=== PATIENT | female | born 1980 | race Caucasian/White ===

== ENCOUNTER → 2017-04-01 13:34 | Outpatient (CLI) | payer OTHER, SELFPAY ==
--- NOTE | 2017-04-01 | MR_ITS ---
MR cervical spine wo con 3-D myelogram image set. Included Ordering Physician: Sammy Lam Patient Age: 36 years: Female HISTORY: Neck pain. Back pain. Low back pain many years. HISTORY of lupus. Possible MS. TECHNIQUE: Sagittal STIR, T1, T2, axial T1 and T2. On 1.5T Siemens wide bore MRI. 3-D MR myelogram image set obtained & performed on MRI workstation. Additional sagittal thin section T2 weighted dataset obtained from this latter acquisition as well (---76 CPT) COMPARISON :No previous C-spine studies Findings cranial cervical junction is satisfactory C2/3, C3/4: Both disc intact & unremarkable neural foramen widely patent C4/5.Disc well-maintained. scant central disc bulge/very minor scant disc protrusion which slightly indents thecal sac and may just touch the anterior margin of cervical cord. Minimal feature of doubtful significance C5-C6. Disc intact. Scant central disc prominence. Not significant C6/7. Disc intact. C7/T1 disc intact Tiny perineural cysts the right foramen at C7/T1 T1/T2 T2/33 disc intact. T3/4. Perhaps scant disc protrusion to the right as seen on sagittal views only . Sagittal/slice 9 . The cervical cord is normal in caliber and signal. No abnormal signal foci. Adequate volume underlying osseous spinal canal. The thyroid upper normal in size bilateral which clinical correlation. 3-D MR myelogram image set. But no significant findings. No significant epidural indentation. The exiting nerve roots appear satisfactory. IMPRESSION: 1. Cervical spine overall intact. With no prominent findings, only very minor observations No disc herniation or significant appearing protrusion. No remarkable spondylosis C-spine The cervical cord appears normal. No lesions evident 2. Only note some minor, Scant central protrusion at C4/5, which slight indents thecal sac at midline. & Of doubtful clinical significance 3. T3/4,. Tiny spur or protrusion to the right mildly indenting thecal sac. It Further discussed subsequent T-spine MRI report . 4. Thyroid appears mildly enlarged bilateral., compatible with previous ultrasound thyroid 2017
--- NOTE | 2017-04-01 13:37 | MR_ITS ---
MR thoracic spine wo con Ordering Physician: Sammy Lam Patient Age: 36 years: Female HISTORY: ITS.REASON: WHITE MATTER DISEASE TECHNIQUE: Sagittal T1-T2 STIR and axial T1-T2 imaging on 1.5 T MR. . COMPARISON :Previous chest film lateral view utilized. From 09/04/2016. FINDINGS The vertebral bodies are intact with no compression fracture nor lesion evident. Only very subtle slight superior endplate concavity T4 which negligible more likely congenital feature rather than reflection of minor old trauma. . The disc spaces are fairly well-maintained throughout the thoracic spine. No disc herniation... Generous volume underlying osseous thoracic spinal canal. The thoracic cord appears normal in caliber and signal There are 2 axial image sets: . The upper axial image set from T3-T7.Demonstrates only very minor scant minimal degenerative posterior endplate hypertrophic ridging evident to the right at T3/4, T 4/5.-Barely evident and actually better seen on the MRI C-spine Only Question scant posterior spurring left paracentral at T 5/6 Thelower axial image set from T8 through L1 reveals no degenerative disc changes nor spondylosis nor disc protrusion. Mild facet hypertrophy T10-11 very slightly indents posterior thecal sac. Mild degenerative facet changes other levels throughout lowert T-spine noted less evident but noted . subtle inhomogeneity within the CSF posterior to the upper cord most likely reflects pulsation artifact. IMPRESSION 1. Thoracic cord appears normal , with no findings of MS. 2. Vertebral bodies are intact. Disc spaces are well hydrated well-maintained 3. No prominent findings. Very minor Minor observations T-spine as in text: ... Mild developing facet hypertrophy lower T-spine most evident at T10-11 ,-only very slightly indents posterior aspect thecal sac at this level ... Suggestion scant very early posterior hypertrophic ridging,/ trace spurring to the right at T3/4, T4/5. Negligible/Barely appreciable
== END ==
PROVIDERS: Family Provider Nurse Practitioner Family; PCP Physician Assistant; Visit Provider Psychiatry & Neurology Neurology
DX: R09.82 Postnasal drip (principal)
CPT/HCPCS: 72141; 72146

== ENCOUNTER → 2017-04-17 14:45 | Outpatient (CLI) | payer OTHER, SELFPAY ==
[2017-04-17 15:55] LABS: Basophils % 0.6 % (0.1-2.0); Eosinophils # 0.1 K/mm3 (0.0-0.4); Eosinophils % 1.3 % (0.1-12.0); Hematocrit 48.9 % (37.0-47.0); Hemoglobin 16.1 g/dL (12.2-16.2); Lymphocytes # 2.2 K/mm3 (0.7-4.5); Lymphocytes % 34.3 K/mm3 (10-50); Mean Corpuscular HGB Conc 32.8 g/dL (31.8-35.4); Mean Corpuscular Hemoglobin 31.2 pg (27.0-31.2); Mean Corpuscular Volume 95.2 fl (81-99); Mean Platelet Volume 7.8 fl (7.4-10.4); Monocytes # 0.3 K/mm3 (0.1-1.0); Monocytes % 3.9 % (1.7-9.3); Neutrophils # 3.8 K/mm3 (1.8-7.8); Neutrophils % 59.8 % (37.0-80.0); Platelet Count 326 K/mm3 (142-424); Red Blood Count 5.14 M/mm3 (4.20-5.40); Red Cell Distribution Width 12.4 % (11.5-17.5); White Blood Count 6.3 K/mm3 (4.8-10.8)
[2017-04-17 16:48] LABS: Activated Partial Thrombo Time 26.4 seconds (23.6-34.0); INR 1.02 (0.9-1.1)
[2017-04-17 16:59] LABS: Alanine Aminotransferase 27 U/L (12-78); Albumin/Globulin Ratio 1.2 (1.1-1.8); Alkaline Phosphatase 169 U/L (46-116); Anion Gap 15.3 mEq/L (5-15); Aspartate Amino Transferase 12 U/L (15-37); Bilirubin,Total 0.3 mg/dL (0.2-1.0); Blood Urea Nitrogen 8 mg/dL (7-18); Calcium 8.9 mg/dL (8.5-10.1); Carbon Dioxide 26 mmol/L (21.0-32.0); Chloride 104 mmol/L (98-107); Chol/HDL Ratio 4.3 (1-3.5); Cholesterol 205 mg/dL (140-200); Creatinine,Serum 0.67 mg/dL (0.55-1.02); Estimated Glomerular Filt Rate 101 ml/min (>60); GFR (African American) 122 ML/MIN (>60); Globulin 3.4 gm/dl (1.3-3.2); Glucose 92 mg/dL (74-106); HDL Cholesterol 48 mg/dL (29-89); LDL Cholesterol 141 mg/dL (0-130); Potassium 4.3 mmoL/L (3.5-5.1); Sodium 141 mmol/L (136-145); T4 (Thyroxine) 10.1 ug/dl (4.7-13.3); Total Protein,Serum 7.4 gm/dL (6.4-8.2); Triglycerides 78 mg/dL (30-200); VLDL Cholesterol 16 mg/dL (0-40)
[2017-04-19 07:19] LABS: Hep A Ab, IgM Negative (Negative); Hepatitis B Core Antibody IgM Negative (Negative); Hepatitis B Surface Antigen Negative (Negative)
[2017-04-19 08:24] LABS: Immunoglobulin A, Qn 339 mg/dL (87-352); Immunoglobulin G, Qn 951 mg/dL (700-1600)
[2017-04-19 17:08] LABS: Hepatitis C Antibody <0.1 s/co ratio (0.0-0.9); Immunoglobulin M, Qn 41 mg/dL (26-217)
[2017-04-19 17:08] LABS: HIV Screen 4th Generation wRfx Non Reactive (Non Reactive)
[2017-04-19 17:10] LABS: Vitamin D 25 Hydroxy 7.7 ng/mL (30.0-100.0)
== END ==
PROVIDERS: Psychiatry & Neurology Neurology; PCP Physician Assistant; Visit Provider Physician Assistant
DX: R90.82 White matter disease, unspecified (principal)
CPT/HCPCS: 36415; 80053; 80061; 80074; 82652; 82784; 84436; 84443; 85025; 85610; 85730; 86703; G0432

== ENCOUNTER → 2017-07-26 13:23 | Outpatient (REF) | payer OTHER, SELFPAY ==
[2017-07-29 13:26] LABS: Amphetamine/Metha Screen,Urine Positive ng/mL (<1000); Barbiturates Screen,Urine Negative ng/mL (<200); Benzodiazepines Screen,Urine Negative ng/mL (200); Cannabinoid Screen,Urine Negative ng/mL (<50); Cocaine Screen,Urine Negative ng/g (<300); Methadone Screen,Urine Negative ng/mL (<300); Opiate Screen,Urine Positive ng/mL (<300); Phencyclidine Screen,Urine Negative ng/mL (<25)
== END ==
LOC: LAB 13:23
PROVIDERS: Visit Provider Nurse Practitioner Family
DX: Z79.899 Other long term (current) drug therapy (principal)
CPT/HCPCS: 80305

== ENCOUNTER → 2017-10-10 15:00 | Outpatient (CLI) | payer OTHER, SELFPAY ==
--- NOTE | 2017-10-10 15:02 | US_ITS ---
US thyroid HISTORY: Follow-up thyroid nodule/Baldev thyroiditis ITS.REASON: 6 mth f/u ORDERING PHYSICIAN: NADIR Nguyen PATIENT AGE: 37 years Comparison: 02/20/2017 FINDINGS: The right lobe of the thyroid gland measures 3.6 x 1.2 x 2.4 cm. Multiple small cysts are present. A 1.2 cm heterogeneous nodule with small cyst is noted in the lower pole on the right similar to the previous exam. The left lobe is 4 x 1.3 x 2.5 cm containing multiple small cysts with heterogeneous echogenicity. IMPRESSION: Overall stable appearance of the thyroid gland with swish cheese appearance and ill-defined 1 cm nodular lesion on the right with multiple small cysts. No new or progressive abnormalities evident
== END ==
PROVIDERS: Family Provider Nurse Practitioner Family; PCP Physician Assistant; Visit Provider Physician Assistant
DX: E06.3 Autoimmune thyroiditis (principal)
CPT/HCPCS: 76536

== ENCOUNTER → 2017-10-23 17:33 | Outpatient (CLI) | payer OTHER, SELFPAY ==
--- NOTE | 2017-10-23 17:35 | XR_ITS ---
EXAM: XR lumbar spine min 4V HISTORY: ITS.REASON: Low back pain ORDERING PHYSICIAN: NADIR Nguyen PATIENT AGE: 37 years COMPARISON: None FINDINGS: Normal alignment. Minimal lumbar curvature convex right No fracture or dislocation. No lytic or blastic change. No significant degenerative change. The disc spaces are preserved. There are gas-filled loops of small and large bowel nonspecific IMPRESSION: No acute finding
--- NOTE | 2017-10-23 17:35 | XR_ITS ---
XR pelvis 1-2V HISTORY: Back pain, bilateral hip pain ITS.REASON: Back pain and bilateral hip pain ORDERING PHYSICIAN: NADIR Nguyen PATIENT AGE: 37 years Comparison: None FINDINGS: No fracture or dislocation is evident. No significant degenerative change. No lytic or blastic change. The SI joints have an unremarkable appearance. Unremarkable soft tissues. IMPRESSION: Negative pelvis.
== END ==
PROVIDERS: PCP Physician Assistant; Visit Provider Physician Assistant
DX: M54.5 Low back pain (principal); M25.551 Pain in right hip; M25.552 Pain in left hip
CPT/HCPCS: 72110; 72170

== ENCOUNTER → 2017-12-03 13:57 | Outpatient (REF) | payer OTHER, SELFPAY ==
[2017-12-03 18:58] LABS: Amphetamine/Metha Screen,Urine Positive ng/mL (<1000); Barbiturates Screen,Urine Negative ng/mL (<200); Benzodiazepines Screen,Urine Negative ng/mL (<200); Cannabinoid Screen,Urine Negative ng/mL (<50); Cocaine Screen,Urine Negative ng/mL (<300); Methadone Screen,Urine Negative ng/mL (<300); Opiate Screen,Urine Positive ng/mL (<300); Phencyclidine Screen,Urine Negative ng/mL (<25)
== END ==
LOC: LAB 13:57
PROVIDERS: Visit Provider Physician Assistant
DX: F90.9 Attention-deficit hyperactivity disorder, unspecified type (principal)
CPT/HCPCS: 80305

== ENCOUNTER → 2018-01-14 18:01 | Outpatient (CLI) | payer OTHER, SELFPAY ==
[2018-01-14 19:51] LABS: Free Thyroxine Index 2.9 ug/dL (5.93-13.13); T4 (Thyroxine) 8.6 ug/dl (4.7-13.3); Thyroid Stimulating Hormone 1.38 uIU/ml (0.358-3.740); Triiodothryronine (T3) Uptake 34 % (31-39)
[2018-01-16 09:18] LABS: Iron 73 ug/dL (27-159); UIBC 239 ug/dL (131-425)
[2018-01-17 09:26] LABS: Iron Saturation 23 % (15-55); Vitamin B12 224 pg/mL (232-1245); Vitamin D 25 Hydroxy 8.9 ng/mL (30.0-100.0)
== END ==
PROVIDERS: Visit Provider Physician Assistant
DX: Z86.39 Personal history of other endocrine, nutritional and metabolic disease (principal); E55.9 Vitamin D deficiency, unspecified; D64.9 Anemia, unspecified
CPT/HCPCS: 82607; 82652; 83540; 83550; 84436; 84443; 84479

== ENCOUNTER → 2018-01-21 14:57 | Outpatient (CLI) | payer OTHER, SELFPAY ==
[2018-01-24 07:02] LABS: Parathyroid Hormone Intact 25 pg/mL (15-65)
== END ==
PROVIDERS: Visit Provider Physician Assistant
DX: E55.9 Vitamin D deficiency, unspecified (principal); Z86.39 Personal history of other endocrine, nutritional and metabolic disease
CPT/HCPCS: 36415; 83970

== ENCOUNTER → 2018-04-23 16:00 | Outpatient (CLI) | payer OTHER, SELFPAY | PROVIDERS: Visit Provider Physician Assistant | DX: R14.0 Abdominal distension (gaseous) (principal) | CPT/HCPCS: 87338 ==

== ENCOUNTER → 2018-04-30 22:00 | Outpatient (CLI) | payer OTHER, SELFPAY ==
[2018-05-05 14:19] LABS: H. pylori Stool Ag, EIA Negative (Negative)
== END ==
PROVIDERS: Visit Provider Physician Assistant
DX: R14.0 Abdominal distension (gaseous) (principal)
CPT/HCPCS: 87338

== ENCOUNTER → 2018-05-26 15:12 | Outpatient (CLI) | payer OTHER, SELFPAY ==
[2018-05-27 09:16] LABS: Basophils # 0.1 K/mm3 (0-0.2); Eosinophils % 0.7 % (0.1-12.0); Hematocrit 44.1 % (37.0-47.0); Hemoglobin 14.3 g/dL (12.2-16.2); Lymphocytes # 2.3 K/mm3 (0.7-4.5); Lymphocytes % 41.5 % (10-50); Mean Corpuscular HGB Conc 32.4 g/dL (31.8-35.4); Mean Corpuscular Hemoglobin 31.9 pg (27.0-31.2); Mean Corpuscular Volume 98.2 fl (81-99); Mean Platelet Volume 8.7 fl (7.4-10.4); Monocytes # 0.3 K/mm3 (0.1-1.0); Monocytes % 4.8 % (1.7-9.3); Neutrophils # 2.9 K/mm3 (1.8-7.8); Platelet Count 369 K/mm3 (142-424); Red Blood Count 4.49 M/mm3 (4.20-5.40); Red Cell Distribution Width 12.6 % (11.5-17.5); White Blood Count 5.6 K/mm3 (4.8-10.8)
[2018-05-27 09:36] LABS: Alanine Aminotransferase 19 U/L (12-78); Albumin Level 3.7 gm/dL (3.4-5.0); Alkaline Phosphatase 177 U/L (46-116); Anion Gap 13.9 mEq/L (5-15); Aspartate Amino Transferase 11 U/L (15-37); Bilirubin,Total 0.2 mg/dL (0.2-1.0); Blood Urea Nitrogen 7 mg/dL (7-18); Calcium 8.9 mg/dL (8.5-10.1); Carbon Dioxide 25 mmol/L (21.0-32.0); Chloride 104 mmol/L (98-107); Chol/HDL Ratio 4.5 (1-3.5); Cholesterol 191 mg/dL (140-200); Creatinine,Serum 0.65 mg/dL (0.55-1.02); Estimated Glomerular Filt Rate 104 ml/min (>60); GFR (African American) 126 ML/MIN (>60); Globulin 3.6 gm/dl (1.3-3.2); Glucose 73 mg/dL (74-106); HDL Cholesterol 42 mg/dL (29-89); LDL Cholesterol 136 mg/dL (0-130); Potassium 3.9 mmoL/L (3.5-5.1); Sodium 139 mmol/L (136-145); T4 (Thyroxine) 8.6 ug/dl (4.7-13.3); Thyroid Stimulating Hormone 0.99 uIU/ml (0.358-3.740); Total Protein,Serum 7.3 gm/dL (6.4-8.2); Triglycerides 67 mg/dL (30-200); VLDL Cholesterol 13 mg/dL (0-40)
[2018-05-28 07:55] LABS: Vitamin D 25 Hydroxy 5.7 ng/mL (30.0-100.0)
[2018-05-28 08:46] LABS: Vitamin B12 392 pg/mL (232-1245)
== END ==
PROVIDERS: Visit Provider Physician Assistant
DX: E03.9 Hypothyroidism, unspecified (principal); E78.5 Hyperlipidemia, unspecified; D64.9 Anemia, unspecified; E55.9 Vitamin D deficiency, unspecified
CPT/HCPCS: 80053; 80061; 82607; 82652; 84436; 84443; 85025

== ENCOUNTER → 2018-10-01 13:52 | Outpatient (CLI) | payer OTHER, SELFPAY ==
--- NOTE | 2018-10-01 13:55 | XR_ITS ---
XR pelvis min 3V HISTORY: Fall with injury and pain ITS.REASON: Pelvis pain ORDERING PHYSICIAN: NADIR Hale PATIENT AGE: 38 years Comparison: None FINDINGS: No fracture or dislocation is evident. No significant degenerative change. No lytic or blastic change. The SI joints have an unremarkable appearance. Unremarkable soft tissues. There is a punctate left mid pelvic phleboliths. IMPRESSION: No acute process. Pelvic phleboliths.
--- NOTE | 2018-10-01 13:55 | US_ITS ---
US thyroid HISTORY: ITS.REASON: Baldev's ORDERING PHYSICIAN: NADIR Hale PATIENT AGE: 38 years Comparison: 10/10/2017. FINDINGS: Right lobe is 1.6 x 4.1 x 2.5 cm. Left lobe is 1.4 x 4.3 x 1.8 cm. AP diameter of the isthmus is 0.1 cm. The somewhat coarse diffuse heterogeneous appearance of the thyroid parenchyma remains stable. Again seen is the mid and lower pole right thyroid lobe very subtle ill-defined nodular area. This is mixed solid and cystic and the solid component is isoechoic compared to the thyroid tissue. Maximal AP and transverse diameter is 1.6 x 1.5 cm and the length is 1.5 cm. The scattered small punctate anechoic foci in the left lower lobe are stable. Impression: Heterogeneous thyroid parenchyma is stable. The right thyroid lobe nodule is TI-RAD category 2. This is not suspicious at this time and biopsy is not recommended. Suggest follow-up in 6 months to one year.
--- NOTE | 2018-10-01 13:55 | XR_ITS ---
XR knee LT 4V HISTORY: ITS.REASON: Left knee pain ORDERING PHYSICIAN: NADIR Hale PATIENT AGE: 38 years COMPARISON: None FINDINGS: No fracture or dislocation. No lytic or blastic change. Normal mineralization. No significant arthritic changes evident. No other significant findings IMPRESSION: Negative Knee
== END ==
PROVIDERS: PCP Physician Assistant; Visit Provider Physician Assistant
DX: M25.551 Pain in right hip (principal); M25.552 Pain in left hip; M25.562 Pain in left knee; E06.3 Autoimmune thyroiditis
CPT/HCPCS: 72190; 73564; 76536

== ENCOUNTER → 2018-11-13 14:18 | Outpatient (CLI) | payer OTHER, SELFPAY ==
--- NOTE | 2018-11-13 14:21 | XR_ITS ---
PROCEDURE: XR FOOT WT BEARING RT 3V CLINICAL INDICATION: pain Pain, numbness, burning COMPARISON: No exams were available for comparison FINDINGS: No fracture or dislocation. No lytic or blastic change. There is normal mineralization. The joint spaces are well-preserved. No significant degenerative/arthritic changes. No erosive changes evident. Other findings:None. IMPRESSION: Negative right foot Dictated by: Carlitos Tony MD 11/13/2018 16:42 Electronically signed by Carlitos Tony MD in [facility] 11/13/2018 16:42
--- NOTE | 2018-11-13 14:21 | XR_ITS ---
PROCEDURE: XR FOOT WT BEARING LT 3V CLINICAL INDICATION: pain COMPARISON: No exams were available for comparison FINDINGS: No fracture or dislocation. No lytic or blastic change. There is normal mineralization. The joint spaces are well-preserved. No significant degenerative/arthritic changes. No erosive changes evident. Other findings:None. IMPRESSION: Negative left foot Dictated by: Carlitos Tony MD 11/13/2018 16:42 Electronically signed by Carlitos Tony MD in [facility] 11/13/2018 16:42
== END ==
PROVIDERS: PCP Physician Assistant; Visit Provider Podiatrist
DX: M79.672 Pain in left foot (principal); M79.671 Pain in right foot
CPT/HCPCS: 73630

== ENCOUNTER → 2018-12-01 13:05 | Outpatient (CLI) | payer OTHER, SELFPAY ==
--- NOTE | 2018-12-01 13:06 | US_ITS ---
APPROVED REPORT Exam Type: Lower Extremity Segmental Pressures Embossing Machine Tender: Valeria Simms CRT Indications Claudication: Current Smoker Risk Factors Current Smoker Pressures/Indices Right Indices Left Indices Brachial 115.00 mmHg Brachial 123.00 mmHg Low Thigh 125.00 mmHg 1.02 Low Thigh 106.00 mmHg 0.86 Calf 132.00 mmHg 1.07 Calf 111.00 mmHg 0.90 Ankle(PT) 113.00 mmHg 0.92 Ankle(PT) 112.00 mmHg 0.91 Ankle(DP) 120.00 mmHg 0.98 Ankle(DP) 112.00 mmHg 0.91 Digit 123.00 mmHg 1.00 Digit 85.00 mmHg 0.69 Conclusion No evidence significant arterial disease throughout the right and left lower extremities as evidenced by normal resting PVR waveforms and normal resting indices. Electronically signed by : Carlitos Tony MD 12/02/2018 15:35:14
== END ==
PROVIDERS: PCP Physician Assistant; Visit Provider Physician Assistant
DX: R09.89 Other specified symptoms and signs involving the circulatory and respiratory systems (principal)
CPT/HCPCS: 93923

== ENCOUNTER → 2019-02-12 16:06 | Outpatient (CLI) | payer MEDICARE, MEDICAID, SELFPAY | PROVIDERS: PCP Physician Assistant; Visit Provider Physician Assistant | DX: R00.0 Tachycardia, unspecified (principal) | CPT/HCPCS: 93225; 93226 ==

== ENCOUNTER → 2019-03-02 16:36 | Outpatient (CLI) | payer MEDICARE, MEDICAID, SELFPAY ==
[2019-03-02 17:45] LABS: Amphetamine/Metha Screen,Urine Positive ng/mL (<1000); Barbiturates Screen,Urine Negative ng/mL (<200); Benzodiazepines Screen,Urine Negative ng/mL (<200); Cannabinoid Screen,Urine Negative ng/mL (<50); Cocaine Screen,Urine Negative ng/mL (<300); Methadone Screen,Urine Negative ng/mL (<300); Opiate Screen,Urine Positive ng/mL (<300); Phencyclidine Screen,Urine Negative ng/mL (<25)
== END ==
PROVIDERS: Visit Provider Physician Assistant
DX: Z79.899 Other long term (current) drug therapy (principal)
CPT/HCPCS: 80305

== ENCOUNTER → 2019-04-01 17:18 | Outpatient (CLI) | payer MEDICARE, MEDICAID, SELFPAY ==
[2019-04-01 18:30] LABS: Basophils % 0.5 % (0.1-2.0); Eosinophils % 0.3 % (0.1-12.0); Hematocrit 45.8 % (37.0-47.0); Lymphocytes # 2.7 K/mm3 (0.7-4.5); Mean Corpuscular HGB Conc 32.8 g/dL (31.8-35.4); Mean Corpuscular Hemoglobin 31.2 pg (27.0-31.2); Mean Corpuscular Volume 95.1 fl (81-99); Mean Platelet Volume 8.1 fl (7.4-10.4); Monocytes # 0.3 K/mm3 (0.1-1.0); Monocytes % 5.4 % (1.7-9.3); Neutrophils # 2.8 K/mm3 (1.8-7.8); Neutrophils % 47.8 % (37.0-80.0); Platelet Count 370 K/mm3 (142-424); Red Blood Count 4.82 M/mm3 (4.20-5.40); Red Cell Distribution Width 12.4 % (11.5-17.5); White Blood Count 5.8 K/mm3 (4.8-10.8)
[2019-04-01 20:07] LABS: Alanine Aminotransferase 10 U/L (12-78); Albumin Level 4.3 gm/dL (3.4-5.0); Albumin/Globulin Ratio 1.4 (1.1-1.8); Alkaline Phosphatase 126 U/L (46-116); Anion Gap 16.3 mEq/L (5-15); Aspartate Amino Transferase 12 U/L (15-37); Bilirubin,Total 0.5 mg/dL (0.2-1.0); Blood Urea Nitrogen 5 mg/dL (7-18); Calcium 8.9 mg/dL (8.5-10.1); Carbon Dioxide 28 mmol/L (21.0-32.0); Chloride 101 mmol/L (98-107); Chol/HDL Ratio 3.9 (1-3.5); Cholesterol 154 mg/dL (140-200); Creatinine,Serum 0.76 mg/dL (0.55-1.02); Estimated Glomerular Filt Rate 86 ml/min (>60); GFR (African American) 104 ML/MIN (>60); Globulin 3.1 gm/dl (1.3-3.2); Glucose 80 mg/dL (74-106); HDL Cholesterol 40 mg/dL (29-89); LDL Cholesterol 104 mg/dL (0-130); Potassium 3.3 mmoL/L (3.5-5.1); Sodium 142 mmol/L (136-145); T4 (Thyroxine) 10.4 ug/dl (4.7-13.3); Thyroid Stimulating Hormone 0.66 uIU/ml (0.358-3.740); Total Protein,Serum 7.4 gm/dL (6.4-8.2); Triglycerides 51 mg/dL (30-200); VLDL Cholesterol 10 mg/dL (0-40)
[2019-04-03 17:19] LABS: Peripheral Smear Review Scanned Result
[2019-04-04 09:12] LABS: Vitamin B12 326 pg/mL (232-1245); Vitamin D 25 Hydroxy 9.1 ng/mL (30.0-100.0)
== END ==
PROVIDERS: Visit Provider Physician Assistant
DX: R00.0 Tachycardia, unspecified (principal); R41.3 Other amnesia; R59.1 Generalized enlarged lymph nodes; E78.5 Hyperlipidemia, unspecified; E55.9 Vitamin D deficiency, unspecified
CPT/HCPCS: 80053; 80061; 82607; 82652; 84436; 84443; 85025

== ENCOUNTER → 2019-04-22 14:51 | Outpatient (CLI) | payer MEDICARE, MEDICAID, SELFPAY ==
--- NOTE | 2019-04-22 14:55 | CT_ITS ---
PROCEDURE: CT FACIAL BONES WO CON CLINICAL HISTORY: Jaw displacement, bone loss, RA The jaw shifting to the right, headaches, sinus infections the COMPARISON: HDWO CT HEAD W/O CONTRAST from 01/16/2016 BRW/O MRI-BRAIN W/O from 07/10/2016 TECHNIQUE: Axial images obtained with sagittal and coronal reformats. All CT scans at the facility use one or more dose reduction, viz: automated exposure control, ma/kV adjustment per patient size (including targeted exams where dose is matched to indication, i.e. head), or iterative reconstruction technique. FINDINGS: There is minimal mucosal thickening within the left ethmoid sinus. The maxillary sinuses are unremarkable. There is minimal mucosal thickening of the sphenoid sinus on the right. Unremarkable frontal sinuses. The ostiomeatal complexes are patent. There is very minimal rightward nasal septal deviation anteriorly and leftward nasal septal deviation posteriorly. A small well-circumscribed cystic areas noted in the right supraorbital rim laterally measuring 3 mm. There is fluid present in the right mastoid sinus laterally and inferiorly. There is no evidence scutal erosion or middle ear opacification. There is a well-circumscribed lucent lesion involving the right maxillary alveolar ridge medially which measures 12 mm transverse and 12 mm cephalad caudad which may represent a periapical cyst/radicular cyst with thinning of the bony wall anteriorly and inferiorly. The patient is edentulous. There is mild prominence of the adenoids and of the tonsils with multiple calcified tonsillar crypts. There are few small lymph nodes present within the neck bilaterally measuring up to 1.6 by 0.9 cm in the left jugular region. There is mild bilateral TMJ arthropathy. IMPRESSION: 1. Right mastoid sinus disease 2. Well-circumscribed lytic lesion of the right maxillary alveolar ridge medially and may represent a periapical/radicular cyst 3. Mild prominence of the adenoids and tonsils with multiple calcified tonsillar crypts and scattered small cervical lymph nodes Dictated by: Carlitos Tony MD 04/23/2019 19:23 Electronically signed by Carlitos Tony MD in [facility] 04/23/2019 19:23
--- NOTE | 2019-04-22 15:11 | MR_ITS ---
PROCEDURE: MR HEAD/BRAIN WO CON CLINICAL INDICATION: Memory loss Short-term memory loss COMPARISON: BRW/O MRI-BRAIN W/O from 07/10/2016 TECHNIQUE: Routine multiplanar multi echo sequences are performed without gadolinium enhancement. FINDINGS: No evidence of acute infarction. No midline shift or mass effect. No acute intracranial hemorrhage. The cerebellopontine angles, cerebellum, and brainstem are unremarkable. There are a few T2 white matter hyperintensities once again noted which do not appear significantly changed. These are nonspecific as previously mentioned. The pituitary, optic chiasm, corpus callosum, and craniocervical junction have an unremarkable appearance. There is opacification of the right mastoid air cells. No sinus air-fluid level is evident. Incidentally noted is a cystic lesion in the medial aspect of the maxilla at the alveolar ridge which may represent a periapical cyst as described in the facial CT report of the same day. IMPRESSION: 1. No acute intracranial findings. 2. Overall no significant change in the scant T2 white matter hyperintensities which are nonspecific 3. Right mastoid sinus disease. 4. Right maxillary periapical cyst Dictated by: Carlitos Tony MD 04/23/2019 19:10 Electronically signed by Carlitos Tony MD in [facility] 04/23/2019 19:10
== END ==
PROVIDERS: PCP Physician Assistant; Visit Provider Physician Assistant
DX: M26.12 Other jaw asymmetry (principal); M27.9 Disease of jaws, unspecified; R41.3 Other amnesia; R51 Headache
CPT/HCPCS: 70486; 70551

== ENCOUNTER → 2019-04-28 13:53 | Outpatient (POV) | payer MEDICARE, MEDICAID, SELFPAY | PROVIDERS: PCP Dermatology; Visit Provider Dermatology | DX: Z00.00 Encounter for general adult medical examination without abnormal findings (principal) ==

== ENCOUNTER → 2019-04-29 17:40 | Outpatient (CLI) | payer MEDICARE, MEDICAID, SELFPAY ==
[2019-04-29 22:43] LABS: Amphetamine/Metha Screen,Urine Positive ng/ml (<1000)
[2019-04-29 22:46] LABS: Barbiturates Screen,Urine Negative ng/ml (<200); Benzodiazepines Screen,Urine Negative ng/ml (<200)
[2019-04-29 22:47] LABS: Cannabinoid Screen,Urine Negative ng/ml (<50)
[2019-04-29 22:48] LABS: Cocaine Screen,Urine Negative ng/ml (<300); Methadone Screen,Urine Negative ng/ml (<300)
[2019-04-29 22:49] LABS: Opiate Screen,Urine Positive ng/ml (<300)
[2019-04-29 22:50] LABS: Phencyclidine Screen,Urine Negative ng/ml (<25)
== END ==
PROVIDERS: Visit Provider Physician Assistant
DX: Z79.899 Other long term (current) drug therapy (principal)
CPT/HCPCS: 80305

== ENCOUNTER → 2019-05-05 13:42 | Outpatient (CLI) | payer MEDICARE, MEDICAID, SELFPAY ==
--- NOTE | 2019-05-05 13:48 | XR_ITS ---
PROCEDURE: XR DEXA AXIAL SKELETON CLINICAL HISTORY: RA, bone loss COMPARISON: No exams were available for comparison FINDINGS: Right femoral density is 0.817 grams/centimeters sq with a T-score of -1.0 and a Z-score of -0.9. Left femoral density is 0.776 grams/centimeters sq with a T-score of -1 4. L1-L4 density is 0.701 grams/centimeters sq with a T-score -3.1 consistent with osteoporosis. IMPRESSION: Osteoporosis with high fracture risk. Treatment advised. Suggest follow-up exam 1 year. Dictated by: Carlitos Tony MD 05/05/2019 14:44 Electronically signed by Carlitos Tony MD in [facility] 05/05/2019 14:44
== END ==
PROVIDERS: PCP Physician Assistant; Visit Provider Physician Assistant
DX: M06.9 Rheumatoid arthritis, unspecified (principal); M27.9 Disease of jaws, unspecified; M81.0 Age-related osteoporosis without current pathological fracture
CPT/HCPCS: 77080

== ENCOUNTER → 2019-08-17 15:17 | Outpatient (CLI) | payer MEDICARE, MEDICAID, SELFPAY | PROVIDERS: Visit Provider Physician Assistant | DX: N89.8 Other specified noninflammatory disorders of vagina (principal) | CPT/HCPCS: 87210 ==

== ENCOUNTER → 2019-09-16 13:09 | Outpatient (CLI) | payer MEDICARE, MEDICAID, SELFPAY ==
--- NOTE | 2019-09-16 | CA_ITS ---
APPROVED REPORT Right Upper Extremity Venous Study for DVT. Grommet Man: Taylor Winchester RT(R) Indications Upper Extremity Pain: Right Patient states the knot in upper right arm appeared a couple of days ago. No known trauma. Risk Factors Oral Contraceptive Patient has Lupus, rheumatoid arthritis Vein Imaging IJV (R): Normal phasic flow is seen. Normal flow, augmentation and compression is seen. No evidence of Deep Vein Thrombosis. No abnormalities are demonstrated. SCV (R): Normal phasic flow is seen. Normal flow, augmentation and compression is seen. No evidence of Deep Vein Thrombosis. No abnormalities are demonstrated. Axillary (R): Normal phasic flow is seen. Normal flow, augmentation and compression is seen. No evidence of Deep Vein Thrombosis. No abnormalities are demonstrated. Brachial (R): Normal phasic flow is seen. Normal flow, augmentation and compression is seen. No evidence of Deep Vein Thrombosis. No abnormalities are demonstrated. Basilic (R): Compressible Cephalic (R): Compressible Radial (R): Compressible Ulnar (R): Compressible Findings Duplex evaluation of the right upper extremity demonstrates no evidence of DVT. Conclusion Duplex evaluation of the right upper extremity demonstrates no evidence of DVT. Electronically signed by : Carlitos Tony MD 09/17/2019 17:26:32
--- NOTE | 2019-09-16 13:09 | CA_ITS ---
APPROVED REPORT Design Editor: CT Laterality: Bilateral Indications: calcification carotid Doppler Spectral Velocity Analysis ECA (R) 98.80/27.70 cm/s ECA (L) 98.20/20.20 cm/s dICA (R) 102.50/41.90 cm/s dICA (L) 109.20/53.10 cm/s Karina (R) 95.80/47.10 cm/s Karina (L) 93.50/43.40 cm/s pICA (R) 83.10/32.90 cm/s pICA (L) 95.00/41.90 cm/s dCCA (R) 101.10/35.60 cm/s dCCA (L) 124.20/45.30 cm/s pCCA (R) 119.40/27.90 cm/s pCCA (L) 131.00/36.60 cm/s Vert (R) 56.70/26.70 cm/s Vert (L) 62.10/22.40 cm/s ICA/CCA 1.00 ICA/CCA 0.90 Findings Duplex evaluation demonstrates stenosis of the right proximal internal carotid artery <20% with PSV <140 cm/sec, EDV <100 cm/sec, and IC/CC Ratio <4.0. Duplex evaluation demonstrates stenosis of the left proximal internal carotid artery <20% with PSV <140 cm/sec, EDV <100 cm/sec, and IC/CC Ratio <4.0. Duplex evaluation demonstrates antegrade flow of the bilateral Vertebral Arteries. Conclusion No increased velocities to suggest hemodynamically significant stenosis in either internal carotid artery. Electronically signed by : Carlitos Tony MD 09/17/2019 17:30:15
--- NOTE | 2019-09-16 13:09 | US_ITS ---
PROCEDURE: US THYROID CLINICAL INDICATION: f/u abnl thyroid US Baldev's thyroiditis COMPARISON: THY US thyroid from 10/01/2018 FINDINGS: Right lobe: 4.4 x 1.7 x 2 cm. There is diffuse heterogeneous echogenicity with multiple small cystic areas. No discrete nodule apparent Left lobe: 4.3 x 1.4 x 2 cm. Scattered small cystic areas Isthmus: Unremarkable Additional findings: IMPRESSION: Enlarged thyroid gland with [place]ong [place]onger cheese appearance consistent with Baldev's thyroiditis not significantly changed Dictated by: Carlitos Tony MD 09/16/2019 16:56 Electronically signed by Carlitos Tony MD in [facility] 09/16/2019 16:56
== END ==
PROVIDERS: PCP Physician Assistant; Visit Provider Physician Assistant
DX: Z86.39 Personal history of other endocrine, nutritional and metabolic disease (principal); I65.23 Occlusion and stenosis of bilateral carotid arteries; M79.601 Pain in right arm
CPT/HCPCS: 76536; 93880; 93971

== ENCOUNTER 2019-11-23 15:30 | Emergency (ER) | payer MEDICARE, MEDICAID, SELFPAY ==
[2019-11-23 15:47] VITALS: BP 120/82; PULSE 89; RESP 22; O2SAT 98; BMI 20.2
--- NOTE | 2019-11-23 16:17 | HMH.EDUTC ---
[facility] [place] Disposition Clinical Impression: Otitis media Qualifiers: Otitis media type: suppurative Chronicity: acute Laterality: bilateral Recurrence: non-recurrent Spontaneous tympanic membrane rupture: without spontaneous rupture Qualified Code(s): H66.003 - Acute suppurative otitis media without spontaneous rupture of ear drum, bilateral Sinusitis Qualifiers: Sinusitis location: unspecified location Chronicity: acute Recurrence: non-recurrent Qualified Code(s): J01.90 - Acute sinusitis, unspecified Disposition: Home, Self-Care Condition on Discharge: Good Instructions: Sinusitis, DI for Sinusitis Additional Instructions: Drink plenty of fluids. Take tylenol or ibuprofen for pain or fever. Take the medications as directed. Follow up with your regular doctor. GO TO THE ER FOR ANY WORSENING SYMPTOMS Prescriptions: Cefdinir [Omnicef 300mg Capsule] 300 mg PO BID #20 cap Transmission Status: Received by [facility] Referrals: Eliana Rodarte PA [Primary Care Provider] - Time of Disposition: 16:32 Medical Decision Making - Medical Records Medical records reviewed: No: I reviewed the patient's medical records. - Deng Inquiry Pt receiving controlled substance: No Vital Signs: 11/23/19 15:47 11/23/19 16:24 Temperature 98.4 F Temperature Source Oral Pulse Rate 89 Pulse Rate [Left Brachial] 89 Respiratory Rate 22 22 Blood Pressure 120/82 Blood Pressure [Left Arm] 120/82 Blood Pressure Mean [Left Arm] 94 Blood Pressure Source [Left Arm] Automatic Cuff Blood Pressure Position [Left Arm] Sitting 02 Sat by Pulse Oximetry 98 Oxygen Delivery Method Room Air Room Air Orders (Tests/Meds): ED MEDICATIONS Discontinued Medications Generic Name Dose Route Start Last Admin Trade Name Freq PRN Reason Stop Dose Admin Methylprednisolone Sodium Succinate 125 mg 11/23/19 16:13 11/23/19 16:17 Solu-Medrol 125mg/2ml Vial IM 11/23/19 16:14 125 mg ONCE ONE Administration [facility] [place] HPI - General Stated complaint: R ear pain Time Seen by Provider: 11/23/19 15:45 Mode of Arrival: Ambulatory Source of Information: Patient Limitations: No Limitations Description of Symptoms (Recalled from Triage Doc. by RN): PATIENT C/O POSSIBLE SINUS INFECTION. C/O RIGHT EAR AND NECK PAIN, A BUZZING SOUND IN RIGHT EAR, AND LEFT EYE PAIN HEENT Symptoms (Recalled from RN notes): Yes Resp Symptoms (Recalled from RN notes): No Skin Symptoms (Recalled from RN notes): No MS Symptoms (Recalled from RN notes): No Functional Status (Recalled from RN notes): WNL - History of Present Illness Provider Complaint: She c/o right ear pain and sinus congestion for the past 1 week. She has a history of getting sinus infections and ear infections fairly frequently, especially in the fall. She denies any documented fever, but she has been chilling. - Related Data Home Medications Medication Instructions Recorded Confirmed indomethacin 50 mg capsule 50 mg PO QHS cap 03/20/17 09/16/19 meclizine 25 mg tablet 25 mg PO TID PRN tab 03/20/17 09/16/19 tizanidine 4 mg capsule 4 mg PO TID PRN 07/26/17 09/16/19 pregabalin 25 mg capsule 25 mg PO QHS cap 12/03/17 09/16/19 oxycodone-acetaminophen 10 mg-325 PO 04/01/19 09/16/19 mg tablet Previous Rx's Medication Instructions Recorded albuterol sulfate 90 mcg/actuation 2 puff INHALATION Q4-6H PRN #6.7 g 05/15/17 aerosol inhaler ibuprofen 200 mg capsule 800 mg PO Q6H #120 cap 06/25/18 ketorolac 0.4 % eye drops 1 drp OPHTHALMIC BID 30 Days #5 ml 06/25/18 sumatriptan succinate 100 mg tablet See Rx Instructions PO .COMPLEX #9 08/18/18 tab atorvastatin 10 mg tablet 10 mg PO QHS #90 tab 12/31/18 ranitidine HCl 300 mg tablet 300 mg PO DAILY PRN #14 tab 12/31/18 nystatin 100,000 unit/mL oral 5 ml BUCCAL QID 7 Days #140 ml 02/18/19 suspension cholecalciferol (vitamin D3) 25 1,000 unit PO DAILY #90 cap 04/06/19 mcg (1,000 unit) capsule ergo
[2019-11-23 16:24] VITALS: BP 120/82; PULSE 89; RESP 22; TEMP 36.9; O2SAT 98
== END 2019-11-23 16:42 | disposition home or self-care (01) ==
PROVIDERS: Emergency Provider Nurse Practitioner Family; PCP Physician Assistant
DX: J01.90 Acute sinusitis, unspecified (principal); H66.003 Acute suppurative otitis media without spontaneous rupture of ear drum, bilateral; M79.7 Fibromyalgia; E78.5 Hyperlipidemia, unspecified; G43.709 Chronic migraine without aura, not intractable, without status migrainosus; Z87.891 Personal history of nicotine dependence; Z79.899 Other long term (current) drug therapy; Z88.0 Allergy status to penicillin; Z88.8 Allergy status to other drugs, medicaments and biological substances
CPT/HCPCS: 96372; 99201

== ENCOUNTER 2019-12-03 15:00 | Outpatient (RCR) | payer MEDICARE, MEDICAID, SELFPAY ==
--- NOTE | 2019-08-31 16:03 | HMH.PTOPEV ---
PT Outpatient Evaluation Rehab PT Outpatient Evaluation Start: 08/31/19 15:06 Freq: Status: Active Protocol: Document 08/31/19 15:28 ESSENCE (Rec: 08/31/19 16:03 ESSENCE [id number]) Electronically Signed By Dallin Lehman, PT 08/31/19 15:28 Outpatient Therapy Subjective History Subjective History Pt reports h/o chronic LBP with most recent exacerbation over the last ~2-3 months. Pt reports midline LBP and lower mid back pain as well. Pt also reports PHM of lupus, MS, and RA, 'all of which I'm sure contribute to my current back pain'. With these aforementioned diagnoses pt also reports neck pain, L sided weakness, and balance issues. Chief Complaint Pain,Weakness Symptom Type Ache,Sharp,Dull Symptoms Relieved By Rest/Positioning,Heat Symptoms Aggravated By Sitting,Standing,Walking Prior Functional Limitations Standing,Sitting,Walking Current Functional Limitations Housework,Sleeping,Standing, Sitting,Walking,Balance Symptom Description Constant but Variable Level of pain today (0-10) 7 Pain scale - at its best (0-10) 7 Pain scale - at its worst (0-10) 9 Lumbopelvic Eval Posture Thoracic Spine Posture Standing Position Neutral Lumbar Spine Posture Standing Position Increased Lordosis Assistive device Assistive Devices None / NA Gait Observation General Gait Pattern Observation Antalgic Gait Palapation tenderness bilateral thoracic spinal tenderness Yes: 3/4 lumbar spinal tenderness Yes: 3/4 paraspinal tenderness Yes: 3/4 Lumbar/Sacral Palpation Findings Tenderness Accessory Movement T-spine Vertebrae Accessory Movements Central P/A [place] that Elicit Symptoms T10 bilateral T11 bilateral T12 bilateral L-spine Vertebrae Accessory Movements Central P/A [place] that Elicit Symptoms L2 bilateral L3 bilateral L4 bilateral L5 bilateral Range of Motion Lumbar Spine Active Flexion Range of 0-50 Motion (degrees) Lumbar Spine Active Extension Range of 0-15 Motion (degrees) Left Lumbar Spine Lateral Flexion Active 0-20 Range of Motion (degrees) Right Lumbar Spine Lateral Flexion 0-20 Active Range of Motion (degrees) Lumbar Spine ROM Limitations
--- NOTE | 2019-10-01 15:37 | HMH.RHREAS ---
Rehab Reassessment Rehab OP Re-assessment Start: 10/01/19 15:20 Freq: Status: Active Protocol: Document 10/01/19 15:20 ESSENCE (Rec: 10/01/19 15:37 ESSENCE [id number]) Electronically Signed By Dallin Lehman, PT 10/01/19 15:20 Rehab Re-assessment Subjective Subjective Pt reports 5-6/10 systemic/ global pain on VAS, 'good days and bad days', and feels ~20% better overall functionally since I Eval Objective Objective Notes AROM: L-SPINE FLX 0-55, EXT 0- 12, B SB 0-20 MMT: B HI FLX 4/5, B KNEE EXT 4+/5, B HS 4+/5, B DF 5/5 TTP: THORACIC AND LUMBAR SP'S 3/4, B THORACIC AND LUMBAR PARA MM 3/4 TINETTI:27 Assessment Progress Assessment Progressing as Expected Assessment Notes PT W/IMPROVED ROM, STRENGTH, TTP, AND BALANCE Patient goals met STG'S 09/15 LTG'S 04/22 Goals Not Met STG'S 03/18, LTG'S 12/20 Plan Plan PT TO CONT. W/SKILLED P.T. TO MAKE FURTHER IMPROVEMENTS IN ROM, STRENGTH, TTP, AND GAIT/ BALANCE TO ALLOW FOR OPTIMAL FUNCTION Frequency of Therapy 1-2X/WK Duration of therapy 3-4WKS Time and Billing Re-Eval Time 15 Re-Eval Billing Units 0 PHYSICIAN CERTIFICATION: I certify the specified therapy services for Marcelina Vidales are required, authorized, and reviewed every 30 days.
--- NOTE | 2019-11-06 16:28 | HMH.RHREAS ---
Rehab Reassessment Rehab OP Re-assessment Start: 10/01/19 15:20 Freq: Status: Active Protocol: Document 11/06/19 16:17 ESSENCE (Rec: 11/06/19 16:28 ESSENCE [id number]) Electronically Signed By Dallin Lehman, PT 11/06/19 16:17 Rehab Re-assessment Subjective Subjective Pt reports 2-4/10 systemic/ global pain on VAS, 'good days and bad days', and feels ~40% better overall functionally since I Eval Objective Objective Notes AROM: L-SPINE FLX 0-90, EXT 0- 15, B SB 0-25 MMT: B HIP FLX 4+/5, B KNEE EXT 4+/5, B HS 4+/5, B DF 5/5 TTP: THORACIC AND LUMBAR SP'S 1-2/4, B THORACIC AND LUMBAR PARA MM 1-2/4 TINETTI:WFL Assessment Progress Assessment Progressing as Expected Assessment Notes PT W/IMPROVED ROM, STRENGTH, AND TTP, WELL GAIT Patient goals met STG'S 09/15 LTG'S 08/20 Goals Not Met STG'S 03/18, LTG'S 08/20 Plan Plan PT TO CONT. W/SKILLED P.T. TO MAKE FURTHER IMPROVEMENTS IN ROM, STRENGTH, TTP, AND GAIT/ BALANCE TO ALLOW FOR OPTIMAL FUNCTION Frequency of Therapy 1-2X/WK Duration of therapy 3-4WKS Time and Billing Re-Eval Time 15 Re-Eval Billing Units 0 PHYSICIAN CERTIFICATION: I certify the specified therapy services for Marcelina Vidales are required, authorized, and reviewed every 30 days.
== END 2019-12-03 15:05 | disposition home or self-care (01) ==
LOC: PT 15:00
PROVIDERS: PCP Physician Assistant; Visit Provider Physician Assistant
DX: M06.9 Rheumatoid arthritis, unspecified (principal)
CPT/HCPCS: 97010; 97014; 97110; 97112; 97140; 97163; 97164; G0283

== ENCOUNTER 2020-03-21 16:28 | Emergency (ER) | payer MEDICARE, MEDICAID, SELFPAY ==
[2020-03-21 17:25] VITALS: PULSE 127; RESP 20; TEMP 37.1; O2SAT 100; BMI 21.9
--- NOTE | 2020-03-21 17:54 | HMH.EDUTC ---
[facility] [place] Dis[place] Clinical Impression: Exposure to COVID-19 virus Disposition: Home, Self-Care Condition on Discharge: Good Instructions: Preventing the Spread of Coronavirus Discharge Instructions Additional Instructions: Drink plenty of fluids. Take tylenol or for pain or fever. Follow up with your regular doctor. GO TO THE ER FOR ANY WORSENING SYMPTOMS Referrals: Eliana Rodarte PA [Primary Care Provider] - Time of Disposition: 18:02 Medical Decision Making - Medical Records Medical records reviewed: No: I reviewed the patient's medical records. - Deng Inquiry Pt receiving controlled substance: No Vital Signs: 03/21/20 17:25 03/21/20 18:02 Temperature 98.7 F 98.7 F Temperature Source Oral Pulse Rate 127 H Pulse Rate [Right Brachial] 127 H Respiratory Rate 20 20 Blood Pressure 00/00 L 02 Sat by Pulse Oximetry 100 Oxygen Delivery Method Room Air Orders (Tests/Meds): ORDERS Category Date Time Status Covid-19 Nasal PCR ([facility]) Routine Lab 03/21/20 17:40 Received [facility] [place] HPI - General Stated complaint: covid test Time Seen by Provider: 03/21/20 17:54 - History of Present Illness Provider Complaint: Her son tested positive for covid last week. She denies any symptoms, but she needs to be tested for her work. - Related Data Home Medications Medication Instructions Recorded Confirmed indomethacin 50 mg capsule 50 mg PO QHS cap 03/20/17 02/11/20 meclizine 25 mg tablet 25 mg PO TID PRN tab 03/20/17 02/11/20 tizanidine 4 mg capsule 4 mg PO TID PRN 07/26/17 02/11/20 hydrocodone 10 mg-acetaminophen 1 tab PO TID tab 11/30/19 02/11/20 325 mg tablet pregabalin 50 mg capsule 50 mg PO DAILY cap 11/30/19 02/11/20 Previous Rx's Medication Instructions Recorded albuterol sulfate 90 mcg/actuation 2 puff INHALATION Q4-6H PRN #6.7 g 05/15/17 aerosol inhaler ibuprofen 200 mg capsule 800 mg PO Q6H #120 cap 06/25/18 ketorolac 0.4 % eye drops 1 drp OPHTHALMIC BID 30 Days #5 ml 06/25/18 sumatriptan succinate 100 mg tablet See Rx Instructions PO .COMPLEX #9 08/18/18 tab atorvastatin 10 mg tablet 10 mg PO QHS #90 tab 12/31/18 ranitidine HCl 300 mg tablet 300 mg PO DAILY PRN #14 tab 12/31/18 cholecalciferol (vitamin D3) 25 1,000 unit PO DAILY #90 cap 04/06/19 mcg (1,000 unit) capsule ergocalciferol (vitamin D2) 1,250 50,000 unit PO QWEEK 90 Days #14 04/06/19 mcg (50,000 unit) capsule cap omeprazole 40 mg capsule,delayed 40 mg PO BID #180 cap 05/05/19 release calcium carbonate 600 mg (1,500 1 tab PO DAILY #30 tab 05/06/19 mg)-vitamin D3 400 unit tablet cetirizine 10 mg tablet See Rx Instructions .ROUTE 11/30/19 .COMPLEX #90 tab medroxyprogesterone 150 mg/mL See Rx Instructions .ROUTE 11/30/19 intramuscular suspension .COMPLEX #1 unspecified methylprednisolone 4 mg tablets in 4 mg PO PER PKG DIR 6 Days #21 tab 02/11/20 a dose pack valacyclovir 1 gram tablet 1,000 mg PO BID #20 tab 02/11/20 dextroamphetamine-amphetamine 30 30 mg PO BID #60 tab 02/12/20 mg tablet levocetirizine 5 mg tablet 5 mg PO DAILY #30 tab 02/15/20 Allergies Allergy/AdvReac Type Severity Reaction Status Date / Time penicillin G Allergy Severe Anaphylaxis Verified 02/11/20 09:57 atomoxetine [From Strattera] Allergy Mild Weight loss Verified 02/11/20 09:57 brompheniramine Allergy Mild hyper Verified 02/11/20 09:57 [From Dimetapp (brompheniramine-PPA)] hydroxyzine Allergy Mild Verified 02/11/20 09:57 meclizine Allergy Mild Vertigo Verified 02/11/20 09:57 melatonin Allergy Mild Verified 02/11/20 09:57 Methotrexate Analogues Allergy Mild Sick Verified 02/11/20 09:57 methylphenidate Allergy Mild Paranoia Verified 02/11/20 09:57 [From Concerta] mirtazapine [From Remeron] Allergy Mild Verified 02/11/20 09:57 phenylpropanolamine Allergy Mild hyper Verified 02/11/20 09:57 [From Dimetapp (brompheniramine-PPA)] prednisone Allergy Mild swelling Verified 02/11/20
[2020-03-21 18:02] VITALS: BP 00/00; PULSE 127; RESP 20; TEMP 37.1; O2SAT 100
== END 2020-03-21 18:09 | disposition home or self-care (01) ==
PROVIDERS: Emergency Provider Nurse Practitioner Family; PCP Physician Assistant
DX: Z20.822 Contact with and (suspected) exposure to COVID-19 (principal); E78.5 Hyperlipidemia, unspecified; M79.7 Fibromyalgia; F90.9 Attention-deficit hyperactivity disorder, unspecified type; M06.9 Rheumatoid arthritis, unspecified; E06.3 Autoimmune thyroiditis; G40.209 Localization-related (focal) (partial) symptomatic epilepsy and epileptic syndromes with complex partial seizures, not intractable, without status epilepticus; Z87.891 Personal history of nicotine dependence; Z79.899 Other long term (current) drug therapy
CPT/HCPCS: G0463; 99202; U0003

== ENCOUNTER → 2020-04-12 16:17 | Outpatient (CLI) | payer MEDICARE, MEDICAID, SELFPAY | PROVIDERS: PCP Physician Assistant; Visit Provider Physician Assistant | DX: Z20.822 Contact with and (suspected) exposure to COVID-19 (principal) | CPT/HCPCS: U0003 ==

== ENCOUNTER 2020-09-02 14:35 | Emergency (ER) | payer MEDICARE, MEDICAID, SELFPAY ==
[2020-09-02 14:50] VITALS: BP 132/96; PULSE 111; RESP 20; TEMP 36.9; O2SAT 99; BMI 21.2
--- NOTE | 2020-09-02 15:05 | HMH.EDUTC ---
[facility] [place] Disposition Clinical Impression: Contact dermatitis Qualifiers: Contact dermatitis type: unspecified Contact dermatitis trigger: unspecified trigger Qualified Code(s): L25.9 - Unspecified contact dermatitis, unspecified cause Disposition: Home, Self-Care Condition on Discharge: Good Instructions: DI for Contact Dermatitis, DI for Poison Deneen Allergy Additional Instructions: Avoid contact with the offending substance (poison deneen). Don't start the oral steroids until tomorrow. Don't put the topical steroids (triamcinolone) on your face or your groin. Follow up with your regular doctor. GO TO THE ER FOR ANY WORSENING SYMPTOMS OR CONCERNS Prescriptions: methylPREDNISolone [Medrol] 4 mg PO DIRECTED 6 Days #21 tab.ds.pk Transmission Status: Received by [facility] Triamcinolone Acetonide 1 applicatio TP TIDP PRN 7 Days #1 tube PRN Reason: Itching Transmission Status: Received by [facility] Referrals: Eliana Rodarte PA [Primary Care Provider] - Time of Disposition: 15:38 Medical Decision Making - Medical Records Medical records reviewed: No: I reviewed the patient's medical records. - Deng Inquiry Pt receiving controlled substance: No Vital Signs: 09/02/20 14:50 09/02/20 15:31 Temperature 98.4 F 98 F Temperature Source Oral Pulse Rate 111 H Pulse Rate [Right] 111 H Respiratory Rate 20 20 Blood Pressure 132/96 H Blood Pressure [Right Arm] 132/96 H Blood Pressure Mean [Right Arm] 108 02 Sat by Pulse Oximetry 99 Orders (Tests/Meds): ED MEDICATIONS Discontinued Medications Generic Name Dose Route Start Last Admin Trade Name Freq PRN Reason Stop Dose Admin Methylprednisolone Sodium Succinate 125 mg 09/02/20 15:05 09/02/20 15:13 Methylprednisolone Sod Succ 125mg Vial IM 09/02/20 15:06 125 mg ONCE ONE Administration [facility] [place] HPI - General Stated complaint: rash both arms Time Seen by Provider: 09/02/20 15:05 Mode of Arrival: Ambulatory Source of Information: Patient Limitations: No Limitations Description of Symptoms (Recalled from Triage Doc. by RN): pt states she had poison deneen three weeks ago but it had started healing. she woke up this am with a pin prick rash on her arms. pt also states she was bitten by a few mosquitos and that she has swelled up from that around her L wrist. HEENT Symptoms (Recalled from RN notes): No Resp Symptoms (Recalled from RN notes): No Skin Symptoms (Recalled from RN notes): Yes (rash on both arms) MS Symptoms (Recalled from RN notes): No Functional Status (Recalled from RN notes): na - History of Present Illness Provider Complaint: She states that she has been having itching on her bilateral forearms and upper arms since yesterday. She had poison deneen in this same area about 3 weeks ago, but it went away. She denies that she could have got reexposed to poison deneen. She denies any fever or chills. - Related Data Home Medications Medication Instructions Recorded Confirmed indomethacin 50 mg capsule 50 mg PO QHS cap 03/20/17 05/18/20 meclizine 25 mg tablet 25 mg PO TID PRN tab 03/20/17 05/18/20 tizanidine 4 mg capsule 4 mg PO TID PRN 07/26/17 05/18/20 hydrocodone 10 mg-acetaminophen 1 tab PO TID tab 11/30/19 05/18/20 325 mg tablet pregabalin 50 mg capsule 50 mg PO DAILY cap 11/30/19 05/18/20 Previous Rx's Medication Instructions Recorded albuterol sulfate 90 mcg/actuation 2 puff INHALATION Q4-6H PRN #6.7 g 05/15/17 aerosol inhaler ibuprofen 200 mg capsule 800 mg PO Q6H #120 cap 06/25/18 sumatriptan succinate 100 mg tablet See Rx Instructions PO .COMPLEX #9 08/18/18 tab cholecalciferol (vitamin D3) 25 1,000 unit PO DAILY #90 cap 04/06/19 mcg (1,000 unit) capsule calcium carbonate 600 mg (1,500 1 tab PO DAILY #30 tab 05/06/19 mg)-vitamin D3 400 unit tablet medroxyprogesterone 150 mg/mL See Rx Instructions .ROUTE 11/30/19 intramuscular suspension .COMPLEX #1 unspecified valacy
[2020-09-02 15:31] VITALS: BP 132/96; PULSE 111; RESP 20; TEMP 36.6
== END 2020-09-02 15:42 | disposition home or self-care (01) ==
PROVIDERS: Emergency Provider Nurse Practitioner Family; PCP Physician Assistant
DX: L25.9 Unspecified contact dermatitis, unspecified cause (principal); E78.5 Hyperlipidemia, unspecified; G43.709 Chronic migraine without aura, not intractable, without status migrainosus; Z88.2 Allergy status to sulfonamides; Z79.899 Other long term (current) drug therapy
CPT/HCPCS: 96372; 99202; G0463

== ENCOUNTER → 2020-09-06 16:44 | Outpatient (CLI) | payer MEDICARE, MEDICAID, SELFPAY ==
--- NOTE | 2020-09-06 17:16 | XR_ITS ---
PROCEDURE: XR CHEST 2V CLINICAL HISTORY: SOA COMPARISON: CR CXR CHEST(2 VIEWS-NOT PORTABLE) from 09/04/2016 FINDINGS: The cardiomediastinal silhouette and pulmonary vascularity are within normal limits. The lungs are clear without infiltrates, suspicious nodules, or pleural effusions. There is mild gaseous distention of the stomach. No acute bony findings. IMPRESSION: Mild gaseous distention of the stomach otherwise negative Dictated by: Carlitos Tony MD 09/06/2020 17:46 Carlitos Tony MD in [place] 09/06/2020 17:46
[2020-09-06 17:45] LABS: Basophils % 0.6 % (0.1-2.0); Eosinophils # 0.1 K/mm3 (0.0-0.4); Eosinophils % 2.4 % (0.1-12.0); Hematocrit 40.3 % (37.0-47.0); Hemoglobin 13.8 g/dL (12.2-16.2); Lymphocytes # 2.8 K/mm3 (0.7-4.5); Lymphocytes % 49.9 % (10-50); Mean Corpuscular HGB Conc 34.2 g/dL (31.8-35.4); Mean Corpuscular Volume 93.5 fl (81-99); Mean Platelet Volume 7.5 fl (7.4-10.4); Monocytes # 0.3 K/mm3 (0.1-1.0); Monocytes % 5.8 % (1.7-9.3); Neutrophils # 2.4 K/mm3 (1.8-7.8); Neutrophils % 41.3 % (37.0-80.0); Platelet Count 316 K/mm3 (142-424); Red Blood Count 4.31 M/mm3 (4.20-5.40); Red Cell Distribution Width 12.9 % (11.5-17.5); White Blood Count 5.7 K/mm3 (4.8-10.8)
[2020-09-06 17:58] LABS: Prothrombin Time 11.3 seconds (10.1-12.5)
[2020-09-06 18:07] LABS: INR 0.95 (0.9-1.1)
[2020-09-06 19:09] LABS: Chloride 102 mmol/L (98-107); Potassium 4.2 mmoL/L (3.5-5.1); Sodium 141 mmol/L (136-145)
[2020-09-06 19:11] LABS: Blood Urea Nitrogen 9 mg/dl (7-17); Estimated Glomerular Filt Rate 112 ml/min (>60); GFR (African American) 135 ML/MIN (>60)
[2020-09-06 19:12] LABS: Alanine Aminotransferase 32 U/L (12-78); Albumin Level 4.8 g/dl (3.5-5.0); Albumin/Globulin Ratio 1.7 (1.1-1.8); Alkaline Phosphatase 148 U/L (38-126); Anion Gap 15.2 mEq/L (5-15); Aspartate Amino Transferase 25 U/L (14-36); Bilirubin,Total 0.5 mg/dl (0.2-1.3); Calcium 9.5 mg/dl (8.4-10.2); Carbon Dioxide 28 mmol/L (22.0-30.0); Cholesterol 209 mg/dl (140-200); Globulin 2.8 g/dL (1.3-3.2); Glucose 106 mg/dl (74-100); HDL Cholesterol 70 mg/dl (40-60); Iron 118 ug/dL (37-170); Total Protein,Serum 7.6 g/dl (6.3-8.2); Triglycerides 108 mg/dl (30-150); VLDL Cholesterol 22 mg/dL (0-40)
[2020-09-06 19:23] LABS: Direct LDL Cholesterol 117.25 mg/dL (100-129)
[2020-09-06 19:36] LABS: 25-OH Vitamin D, Total 19.6 ng/mL (30-100)
[2020-09-06 19:48] LABS: Total Iron Binding Capacity 335 ug/dL (265-497)
[2020-09-06 20:51] LABS: Vitamin B12 253 pg/mL (239-931)
== END ==
PROVIDERS: Visit Provider Physician Assistant
DX: R06.00 Dyspnea, unspecified (principal); Z79.899 Other long term (current) drug therapy; Z86.39 Personal history of other endocrine, nutritional and metabolic disease; M81.0 Age-related osteoporosis without current pathological fracture; M79.673 Pain in unspecified foot; D64.9 Anemia, unspecified
CPT/HCPCS: 71046; 80053; 80061; 82306; 82607; 82728; 83540; 83550; 84443; 85025; 85610

== ENCOUNTER → 2020-09-06 17:29 | Outpatient (CLI) | payer MEDICARE, MEDICAID, SELFPAY ==
[2020-09-06 19:16] LABS: Barbiturates Screen,Urine Negative ng/ml (<200); Benzodiazepines Screen,Urine Negative ng/ml (<200)
[2020-09-06 19:17] LABS: Amphetamine/Metha Screen,Urine Positive ng/ml (<1000)
[2020-09-06 19:20] LABS: Cannabinoid Screen,Urine Negative ng/ml (<50)
[2020-09-06 19:21] LABS: Cocaine Screen,Urine Negative ng/ml (<300); Methadone Screen,Urine Negative ng/ml (<300)
[2020-09-06 19:24] LABS: Opiate Screen,Urine Positive ng/ml (<300)
[2020-09-06 19:25] LABS: Phencyclidine Screen,Urine Negative ng/ml (<25)
== END ==
PROVIDERS: Visit Provider Physician Assistant
DX: R06.00 Dyspnea, unspecified (principal); M79.673 Pain in unspecified foot; Z79.899 Other long term (current) drug therapy; Z86.39 Personal history of other endocrine, nutritional and metabolic disease; M81.0 Age-related osteoporosis without current pathological fracture
CPT/HCPCS: 71046; 80053; 80061; 80305; 82306; 82607; 82728; 83540; 83550; 84443; 85025; 85610

== ENCOUNTER 2020-09-13 15:56 | Emergency (ER) | payer MEDICARE, MEDICAID, SELFPAY ==
[2020-09-13 16:00] VITALS: BP 126/82; PULSE 101; RESP 17; TEMP 36.8; O2SAT 99; BMI 21.9
--- NOTE | 2020-09-13 16:01 | XR_ITS ---
PROCEDURE: XR FOOT RT MIN 3V CLINICAL INDICATION: DROPPED CAN ON FOOT Pain COMPARISON: CR XR FOOT WT BEARING LT 3V from 11/13/2018 CR XR FOOT WT BEARING RT 3V from 11/13/2018 FINDINGS: No fracture or dislocation. No lytic or blastic change. There is normal mineralization. The joint spaces are well-preserved. No significant degenerative/arthritic changes. No erosive changes evident. Other findings:None. IMPRESSION: No acute findings. Dictated by: Carlitos Tony MD 09/13/2020 16:33 Carlitos Tony MD in [facility] 09/13/2020 16:33
--- NOTE | 2020-09-13 16:18 | HMH.EDUTC ---
[facility] [place] Clinical Impression: Foot contusion Qualifiers: Encounter type: initial encounter Laterality: right Qualified Code(s): S90.31XA - Contusion of right foot, initial encounter Disposition: Home, Self-Care Condition on Discharge: Good Instructions: Contusion, DI for Contusion, How To Perform RICE (Rest, Ice, Compress, Elevate) Additional Instructions: *weight bearing as tolerated *RICE, Rest the extremity, Ice 15-20 minutes 3-4 times daily, Compress- wear the donato wrap as discussed as much as possible to help reduce swelling and pain, Elevate the extremity when at rest *Donato wrap is for support and help control swelling, use it except in the shower. Be sure that is not to tight but not to loose either *Elevate when resting *Ibuprofen every 6-8 hours as needed for pain an inflammation. If need something more can take Tylenol in between doses of Ibuprofen to help Immediately follow up with your family doctor for new or worsening of symptoms, or no noticeable improvement over the next 3-5 days Referrals: Eliana Rodarte PA [Primary Care Provider] - As needed Time of Disposition: 17:03 Medical Decision Making - Deng Inquiry Pt receiving controlled substance: No Deng was queried for this patient: No Vital Signs: 09/13/20 16:00 09/13/20 16:58 Temperature 98.2 F 98.2 F Temperature Source Oral Pulse Rate 101 H Pulse Rate [Right Brachial] 101 H Respiratory Rate 17 17 Blood Pressure 126/82 Blood Pressure [Right Arm] 126/82 Blood Pressure Mean [Right Arm] 96 Blood Pressure Source [Right Arm] Automatic Cuff Blood Pressure Position [Right Arm] Sitting 02 Sat by Pulse Oximetry 99 Oxygen Delivery Method Room Air - Radiology Data #1 Image(s): Foot/Toes Image Reviewed: Yes I have reviewed radiologist's interpretation No acute findings [facility] [place] HPI - General Stated complaint: AO [id number] injured R Foot Time Seen by Provider: 09/13/20 16:18 Mode of Arrival: Ambulatory Source of Information: Patient Limitations: No Limitations Description of Symptoms (Recalled from Triage Doc. by RN): PATIENT C/O PAIN TO RIGHT FOOT PAIN AFTER DROPPING A CAN OF HAIR SPRAY ON IT SATURDAY HEENT Symptoms (Recalled from RN notes): No Resp Symptoms (Recalled from RN notes): No Skin Symptoms (Recalled from RN notes): No MS Symptoms (Recalled from RN notes): Yes Functional Status (Recalled from RN notes): WNL - History of Present Illness Provider Complaint: Patient states that she dropped a can of hair spray on her right foot on Saturday State that it landed on her toes State that ever since she has been having pain and swelling in her third right toe and has pain when she tries to bear weight on it and having some bruising so she wanted to get it checked out - Related Data Home Medications Medication Instructions Recorded Confirmed indomethacin 50 mg capsule 50 mg PO QHS cap 03/20/17 09/06/20 meclizine 25 mg tablet 25 mg PO TID PRN tab 03/20/17 09/06/20 tizanidine 4 mg capsule 4 mg PO TID PRN 07/26/17 09/06/20 hydrocodone 10 mg-acetaminophen 1 tab PO TID tab 11/30/19 09/06/20 325 mg tablet pregabalin 50 mg capsule 50 mg PO DAILY cap 11/30/19 09/06/20 Previous Rx's Medication Instructions Recorded albuterol sulfate 90 mcg/actuation 2 puff INHALATION Q4-6H PRN #6.7 g 05/15/17 aerosol inhaler ibuprofen 200 mg capsule 800 mg PO Q6H #120 cap 06/25/18 sumatriptan succinate 100 mg tablet See Rx Instructions PO .COMPLEX #9 08/18/18 tab cholecalciferol (vitamin D3) 25 1,000 unit PO DAILY #90 cap 04/06/19 mcg (1,000 unit) capsule calcium carbonate 600 mg (1,500 1 tab PO DAILY #30 tab 05/06/19 mg)-vitamin D3 400 unit tablet valacyclovir 1 gram tablet 1,000 mg PO BID #20 tab 02/11/20 levocetirizine 5 mg tablet See Rx Instructions .ROUTE 07/01/20 .COMPLEX #90 tab omeprazole 40 mg capsule,delayed See Rx Instructions .ROUTE 07/01/20 release .COMPLEX #180 cap Triamcinolone Acetonide 1 applicatio TP
[2020-09-13 16:58] VITALS: BP 126/82; PULSE 101; RESP 17; TEMP 36.8; O2SAT 99
== END 2020-09-13 17:09 | disposition home or self-care (01) ==
PROVIDERS: Emergency Provider Nurse Practitioner; PCP Physician Assistant
DX: S90.31XA Contusion of right foot, initial encounter (principal); W22.8XXA Striking against or struck by other objects, initial encounter; Y92.019 Unspecified place in single-family (private) house as the place of occurrence of the external cause; E78.5 Hyperlipidemia, unspecified; M79.7 Fibromyalgia; Z87.891 Personal history of nicotine dependence; Z88.0 Allergy status to penicillin; Z88.2 Allergy status to sulfonamides; Z88.8 Allergy status to other drugs, medicaments and biological substances
CPT/HCPCS: G0463; 73630; 99202

== ENCOUNTER → 2020-09-19 15:41 | Outpatient (CLI) | payer MEDICARE, MEDICAID, SELFPAY ==
--- NOTE | 2020-09-19 15:47 | US_ITS ---
PROCEDURE: US THYROID CLINICAL INDICATION: hashimotos Baldev's thyroiditis COMPARISON: US THY US THYROID from 02/20/2017 US US THYROID from 09/16/2019 FINDINGS: Right lobe: 4.4 x 1.5 x 2 cm. Left lobe: 4.1 x 1.1 x 1.7 cm. Isthmus: Unremarkable Additional findings: There are numerous small cyst within the thyroid gland on both sides. There is a questionable nodule in the lower pole on the right at 1.5 x 1.3 cm with spongiform appearance not significantly changed. Multiple small cysts noted in the left lobe IMPRESSION: Overall no significant change multiple small bilateral cysts somewhat with the cheese appearance which may be seen with Baldev's thyroiditis. Questionable nodule on the right unchanged. Dictated by: Carlitos Tony MD 09/20/2020 08:00 Carlitos Tony MD in [place] 09/20/2020 08:00
== END ==
PROVIDERS: PCP Physician Assistant; Visit Provider Physician Assistant
DX: R06.00 Dyspnea, unspecified (principal); Z86.39 Personal history of other endocrine, nutritional and metabolic disease
CPT/HCPCS: 76536

== ENCOUNTER → 2020-09-30 13:30 | Outpatient (CLI) | payer MEDICARE, MEDICAID, SELFPAY | PROVIDERS: PCP Physician Assistant; Visit Provider Physician Assistant | DX: R06.00 Dyspnea, unspecified (principal); Z86.39 Personal history of other endocrine, nutritional and metabolic disease | CPT/HCPCS: 94060; 94726; 94729 ==

== ENCOUNTER → 2020-12-01 14:49 | Outpatient (CLI) | payer MEDICARE, MEDICAID, SELFPAY | PROVIDERS: PCP Physician Assistant; Visit Provider Internal Medicine Pulmonary Disease | DX: R06.00 Dyspnea, unspecified (principal) | CPT/HCPCS: 94070; 95070; J7674 ==

== ENCOUNTER → 2020-12-27 19:19 | Outpatient (CLI) | payer MEDICARE, MEDICAID, SELFPAY ==
[2020-12-27 20:28] LABS: Amphetamine/Metha Screen,Urine Positive ng/ml (<1000); Phencyclidine Screen,Urine Negative ng/ml (<25)
[2020-12-27 20:29] LABS: Barbiturates Screen,Urine Negative ng/ml (<200)
[2020-12-27 20:30] LABS: Benzodiazepines Screen,Urine Negative ng/ml (<200); Cannabinoid Screen,Urine Negative ng/ml (<50)
[2020-12-27 20:31] LABS: Cocaine Screen,Urine Negative ng/ml (<300); Methadone Screen,Urine Negative ng/ml (<300)
[2020-12-27 20:32] LABS: Opiate Screen,Urine Positive ng/ml (<300)
== END ==
PROVIDERS: Visit Provider Physician Assistant
DX: M54.9 Dorsalgia, unspecified (principal); Z79.899 Other long term (current) drug therapy
CPT/HCPCS: 80305

== ENCOUNTER → 2021-01-18 17:19 | Outpatient (CLI) | payer MEDICARE, MEDICAID, SELFPAY ==
[2021-01-18 19:11] LABS: Anion Gap 13.4 mEq/L (5-15); Blood Urea Nitrogen 8 mg/dl (7-17); Calcium 9.3 mg/dl (8.4-10.2); Carbon Dioxide 26 mmol/L (22.0-30.0); Chloride 104 mmol/L (98-107); Estimated Glomerular Filt Rate 138 ml/min (>60); GFR (African American) 167 ML/MIN (>60); Glucose 76 mg/dl (74-100); Magnesium 1.9 mg/dl (1.6-2.3); Potassium 4.4 mmoL/L (3.5-5.1); Sodium 139 mmol/L (136-145)
[2021-01-18 19:58] LABS: Vitamin B12 233 pg/mL (239-931)
== END ==
PROVIDERS: Visit Provider Physician Assistant
DX: M79.641 Pain in right hand (principal)
CPT/HCPCS: 80048; 82607; 83735

== ENCOUNTER 2021-02-17 19:21 | Emergency (ER) | payer MEDICARE, MEDICAID, SELFPAY ==
[2021-02-17 19:41] LABS: Apearance,Urine Clear (Clear); Color,Urine Yellow (Yellow); PH,Urine 5.5 (5.0-8.5); Specific Gravity, Urine 1.025 (1.005-1.030)
[2021-02-17 19:42] LABS: Bilirubin,Urine Negative (Negative); Blood, Urine Trace (Negative); Glucose,Urine (UA) Negative (Negative); Ketones,Urine Negative (Negative); Protein,Urine Negative (Negative); UTC Leukocyte Esterase,Urine Negative (Negative); UTC Nitrate,Urine Negative (Negative); Urobilinogen,Urine 0.2 EU/dl (0.2)
[2021-02-17 19:55] VITALS: BP 131/86; PULSE 71; RESP 19; TEMP 36.8; O2SAT 98; BMI 22.6
--- NOTE | 2021-02-17 20:33 | HMH.EDUTC ---
[facility] [place] Clinical Impression: Sacro-iliac pain Low back pain Qualifiers: Chronicity: acute Back pain laterality: midline Sciatica presence: without sciatica Qualified Code(s): M54.50 - Low back pain, unspecified Disposition: Home, Self-Care Condition on Discharge: Good Instructions: DI for Low Back Pain, Sacroiliac Joint Pain, Methylprednisolone Injection Additional Instructions: Go home and rest. No heavy lifting. No twisting. Continue your home medications as directed. Follow up with your regular doctor. GO TO THE ER FOR ANY WORSENING SYMPTOMS OR CONCERN, ESPECIALLY BOWEL OR BLADDER ISSUES, SADDLE AREA NUMBNESS, FEVER, ETC Referrals: Eliana Rodarte PA [Primary Care Provider] - Time of Disposition: 21:21 Medical Decision Making - Medical Records Medical records reviewed: No: I reviewed the patient's medical records. - Deng Inquiry Pt receiving controlled substance: No Vital Signs: 02/17/21 19:55 Temperature 98.3 F Temperature Source Oral Pulse Rate [Right Brachial] 71 Respiratory Rate 19 Blood Pressure [Right Arm] 131/86 Blood Pressure Mean [Right Arm] 101 Blood Pressure Source [Right Arm] Automatic Cuff Blood Pressure Position [Right Arm] Sitting 02 Sat by Pulse Oximetry 98 Oxygen Delivery Method Room Air - Lab Data Lab Results 02/17/21 19:41: Urine Color Yellow, Urine Appearance Clear, Urine pH 5.5, Ur Specific Llewellyn 1.025, Urine Protein Negative, Urine Glucose (UA) Negative, Urine Ketones Negative, Urine Blood Trace, Urine Nitrate Negative, Urine Bilirubin Negative, Urine Urobilinogen 0.2, Ur Leukocyte Esterase Negative [facility] [place] - General Stated complaint: Back and pelvic pain Time Seen by Provider: 02/17/21 20:33 Mode of Arrival: Ambulatory Source of Information: Patient Limitations: No Limitations Description of Symptoms (Recalled from Triage Doc. by RN): PATIENT C/O LOWER BACK AND PELVIC PAIN X 4 DAYS HEENT Symptoms (Recalled from RN notes): No Resp Symptoms (Recalled from RN notes): No Skin Symptoms (Recalled from RN notes): No MS Symptoms (Recalled from RN notes): Yes Functional Status (Recalled from RN notes): WNL - History of Present Illness Provider Complaint: She states that last Saturday she did a lot of work while leaned over to sort through boxes. She states that once she finished this and tried to stand up, she began having very low back pain and pain around her sacroilliac joints. She has a lot of back pain and other chronic pain issues, so she thought it would get better. But, over the past 6 days it has continued despite her taking her medications for R.A. and lupus. She denies any urinary complaints. She denies any worsening symptoms elsewhere in her body, other than she is having issues with trigger finger of her right ring finger, but that has been an ongoing issue for her. She is scheduled to see Dr. Edwards for that. - Related Data Home Medications Medication Instructions Recorded Confirmed meclizine 25 mg tablet 25 mg PO TID PRN tab 03/20/17 01/18/21 tizanidine 4 mg capsule 4 mg PO TID PRN 07/26/17 01/18/21 hydrocodone 10 mg-acetaminophen 1 tab PO TID tab 11/30/19 01/18/21 325 mg tablet pregabalin 50 mg capsule 50 mg PO DAILY cap 11/30/19 01/18/21 Previous Rx's Medication Instructions Recorded ibuprofen 200 mg capsule 800 mg PO Q6H #120 cap 06/25/18 sumatriptan succinate 100 mg tablet See Rx Instructions PO .COMPLEX #9 08/18/18 tab cholecalciferol (vitamin D3) 25 1,000 unit PO DAILY #90 cap 04/06/19 mcg (1,000 unit) capsule calcium carbonate 600 mg (1,500 1 tab PO DAILY #30 tab 05/06/19 mg)-vitamin D3 400 unit tablet valacyclovir 1 gram tablet 1,000 mg PO BID #20 tab 02/11/20 levocetirizine 5 mg tablet See Rx Instructions .ROUTE 07/01/20 .COMPLEX #90 tab omeprazole 40 mg capsule,delayed See Rx Instructions .ROUTE 07/01/20 release .COMPLEX #180 cap Triamcinolone Acetonide 1 applicatio TP TIDP PRN 7 Days #1
[2021-02-17 21:12] VITALS: BP 131/86; PULSE 71; RESP 19; TEMP 36.8; O2SAT 98
== END 2021-02-17 21:25 | disposition home or self-care (01) ==
PROVIDERS: Emergency Provider Nurse Practitioner Family; PCP Physician Assistant
DX: M54.50 Low back pain, unspecified (principal); R10.2 Pelvic and perineal pain; E78.5 Hyperlipidemia, unspecified; E06.3 Autoimmune thyroiditis; G43.709 Chronic migraine without aura, not intractable, without status migrainosus; M79.7 Fibromyalgia; Z87.891 Personal history of nicotine dependence; Z79.899 Other long term (current) drug therapy
CPT/HCPCS: 81003; 96372; 99202; G0463; J1040

== ENCOUNTER → 2021-03-21 15:32 | Outpatient (CLI) | payer MEDICARE, MEDICAID, SELFPAY ==
--- NOTE | 2021-03-21 15:38 | XR_ITS ---
FINAL REPORT CLINICAL HISTORY: right hand pain FINDINGS: 3 views of the right hand were obtained. There is no acute fracture or dislocation. The joint spaces are intact. There is no soft tissue abnormality. IMPRESSION: No acute process. Reviewed, Interpreted and Dictated by Dre Morfin III, MD Transcribed by Bud Murphy Authenticated by Dre Morfin III, MD on 03/21/2021 04:11:18 PM [facility]
== END ==
PROVIDERS: PCP Physician Assistant; Visit Provider Orthopaedic Surgery
DX: M79.641 Pain in right hand (principal)
CPT/HCPCS: 73130

== ENCOUNTER → 2021-05-18 17:37 | Outpatient (CLI) | payer MEDICARE, MEDICAID, SELFPAY ==
[2021-05-18 17:46] LABS: Barbiturates Screen,Urine Negative ng/ml (<200); Benzodiazepines Screen,Urine Negative ng/ml (<200)
[2021-05-18 17:47] LABS: Amphetamine/Metha Screen,Urine Positive ng/ml (<1000)
[2021-05-18 17:48] LABS: Cannabinoid Screen,Urine Negative ng/ml (<50); Cocaine Screen,Urine Negative ng/ml (<300)
[2021-05-18 17:49] LABS: Methadone Screen,Urine Negative ng/ml (<300)
[2021-05-18 17:50] LABS: Opiate Screen,Urine Positive ng/ml (<300); Phencyclidine Screen,Urine Negative ng/ml (<25)
[2021-05-18 18:20] LABS: Basophils # 0.1 K/mm3 (0-0.2); Basophils % 1.2 % (0.1-2.0); Eosinophils % 0.4 % (0.1-12.0); Hemoglobin 14.4 g/dL (12.2-16.2); Lymphocytes # 1.9 K/mm3 (0.7-4.5); Lymphocytes % 27.3 % (10-50); Mean Corpuscular Hemoglobin 31.8 pg (27.0-31.2); Mean Corpuscular Volume 99.4 fl (81-99); Monocytes # 0.3 K/mm3 (0.1-1.0); Monocytes % 3.9 % (1.7-9.3); Neutrophils # 4.7 K/mm3 (1.8-7.8); Neutrophils % 67.2 % (37.0-80.0); Platelet Count 331 K/mm3 (142-424); Red Blood Count 4.53 M/mm3 (4.20-5.40); Red Cell Distribution Width 12.7 % (11.5-17.5); White Blood Count 6.9 K/mm3 (4.8-10.8)
[2021-05-18 18:40] LABS: Alanine Aminotransferase 28 U/L (12-78); Albumin Level 5.2 g/dl (3.5-5.0); Albumin/Globulin Ratio 1.9 (1.1-1.8); Alkaline Phosphatase 139 U/L (38-126); Anion Gap 14.9 mEq/L (5-15); Aspartate Amino Transferase 30 U/L (14-36); Bilirubin,Total 0.5 mg/dl (0.2-1.3); Blood Urea Nitrogen 11 mg/dl (7-17); Calcium 9.4 mg/dl (8.4-10.2); Carbon Dioxide 26 mmol/L (22.0-30.0); Chloride 101 mmol/L (98-107); Chol/HDL Ratio 3.1 (1-3.5); Cholesterol 204 mg/dl (140-200); Estimated Glomerular Filt Rate 112 ml/min (>60); GFR (African American) 135 ML/MIN (>60); Globulin 2.8 g/dL (1.3-3.2); Glucose 96 mg/dl (74-100); HDL Cholesterol 66 mg/dl (40-60); Potassium 3.9 mmoL/L (3.5-5.1); Sodium 138 mmol/L (136-145); Triglycerides 85 mg/dl (30-150); VLDL Cholesterol 17 mg/dL (0-40)
[2021-05-18 18:51] LABS: C-Reactive Protein 0.4 mg/L (0-4); Direct LDL Cholesterol 107.62 mg/dL (100-129)
[2021-05-18 18:58] LABS: T4 (Thyroxine) 8.5 ug/dl (5.53-11.0)
[2021-05-18 19:04] LABS: 25-OH Vitamin D, Total < 12.8 ng/mL (30-100)
[2021-05-18 19:08] LABS: Erythrocyte Sedimentation Rate 11 mm/hr (0-20)
[2021-05-18 19:11] LABS: Thyroid Stimulating Hormone 1.01 uIU/mL (0.465-4.68)
[2021-05-18 19:29] LABS: Vitamin B12 248 pg/mL (239-931)
[2021-05-20 09:14] LABS: RA Latex Turbid. <10.0 IU/mL (<14.0)
[2021-05-21 12:48] LABS: Lupus Reflex Interpretation Comment: (.); PTT-LA 29.3 sec (0.0-51.9); dRVVT 32.9 sec (0.0-47.0)
[2021-05-21 16:09] LABS: Anti-Centromere B Antibodies <0.2 AI (0.0-0.9); Anti-DNA (DS) Ab Qn 1 IU/mL (0-9); Anti-Jo-1 <0.2 AI (0.0-0.9); Anti-Smith Antibody <0.2 AI (0.0-0.9); Antichromatin Antibodies <0.2 AI (0.0-0.9); Antiscleroderma-70 Antibodies <0.2 AI (0.0-0.9); RNP Antibodies <0.2 AI (0.0-0.9); Sjogren's Anti-SS-A <0.2 AI (0.0-0.9); Sjogren's Anti-SS-B <0.2 AI (0.0-0.9)
[2021-05-22 16:12] LABS: Anti-Cyclic Citrullinated Pept 8 units (0-19)
== END ==
PROVIDERS: PCP Physician Assistant; Visit Provider Physician Assistant
DX: M06.9 Rheumatoid arthritis, unspecified (principal); M32.9 Systemic lupus erythematosus, unspecified; M54.2 Cervicalgia; R20.2 Paresthesia of skin; R90.89 Other abnormal findings on diagnostic imaging of central nervous system; Z79.899 Other long term (current) drug therapy; M81.0 Age-related osteoporosis without current pathological fracture
CPT/HCPCS: 36415; 80053; 80061; 80305; 82306; 82607; 84436; 84443; 85025; 85613; 85651; 86140; 86200; 86225; 86235; 86431

== ENCOUNTER → 2021-06-01 14:58 | Outpatient (CLI) | payer MEDICARE, MEDICAID, SELFPAY ==
--- NOTE | 2021-06-01 14:58 | MR_ITS ---
PROCEDURE INFORMATION: Exam: MR Cervical Spine Without Contrast Exam date and time: 06/01/2021 4:09 PM Age: 40 years old Clinical indication: Neck pain; Additional info: Neck pain, tingling bue TECHNIQUE: Imaging protocol: Multiplanar magnetic resonance images of the cervical spine without contrast. COMPARISON: [facility] MR cervical spine wo con 04/01/2017 1:59 PM FINDINGS: Alignment grossly normal. Signal intensity within the bone marrow normal. Spinal cord normal. Visualized portions of the brain in the posterior fossa is also normal. Annular disk bulge and/or protrusions at C4-C5 No marrow edema C2-C3: Central canal and neural foramina are widely patent. C3-C4: Central canal and neural foramina are widely patent. C4-C5: Central canal and neural foramina are widely patent. Small central disc protrusion without narrowing of the central canal or neural foramina.. C5-C6: Central canal and neural foramina are widely patent. C6-C7: Central canal and neural foramina are widely patent. C7-T1: Central canal and neural foramina are widely patent. IMPRESSION: Mild degenerative disc disease C4-C5.
--- NOTE | 2021-06-01 14:58 | MR_ITS ---
PROCEDURE INFORMATION: Exam: MR Head Without Contrast Exam date and time: 06/01/2021 4:09 PM Age: 40 years old Clinical indication: Pain; Headache; Additional info: H/o ms, abnormal brain mri. Headache. HX ms. Prior MR 04-22-19 TECHNIQUE: Imaging protocol: MR of the head without contrast. COMPARISON: MR HEAD/BRAIN WO CON 04/22/2019 3:57 PM FINDINGS: Brain: No bleed, mass, or shift of structures. Basilar cisterns are normal. No diffusion restricted segments. Pre-pontine region, suprasellar region, and cerebellar angles are normal. Cerebral ventricles: Normal. No ventriculomegaly. Pituitary gland and sella: Sella normal. Bones/joints: Clivus normal. Calvarium is normal marrow signal. Paranasal sinuses: Normal as visualized. No acute sinusitis. Mastoid air cells: Normal as visualized. No mastoid effusion. Orbital cavities: Unremarkable. Soft tissues: Soft tissues are unremarkable Other findings: Diploe is normal. Tectum normal. IMPRESSION: Unremarkable MRI of the brain.
== END ==
PROVIDERS: PCP Physician Assistant; Visit Provider Physician Assistant
DX: M06.9 Rheumatoid arthritis, unspecified (principal); M32.9 Systemic lupus erythematosus, unspecified; M54.2 Cervicalgia; R20.2 Paresthesia of skin; R90.89 Other abnormal findings on diagnostic imaging of central nervous system
CPT/HCPCS: 70551; 72141; 76376

== ENCOUNTER → 2021-07-11 15:52 | Outpatient (POV) | payer MEDICARE, MEDICAID, SELFPAY | PROVIDERS: Visit Provider Dermatology | DX: Z00.00 Encounter for general adult medical examination without abnormal findings (principal) ==

== ENCOUNTER → 2021-10-30 06:38 | Outpatient (CLI) | payer MEDICARE, MEDICAID, SELFPAY ==
[2021-10-30 21:38] LABS: Amphetamine/Metha Screen,Urine Positive ng/ml (<1000); Barbiturates Screen,Urine Negative ng/ml (<200)
[2021-10-30 21:39] LABS: Benzodiazepines Screen,Urine Negative ng/ml (<200)
[2021-10-30 21:40] LABS: Cannabinoid Screen,Urine Negative ng/ml (<50); Cocaine Screen,Urine Negative ng/ml (<300)
[2021-10-30 21:41] LABS: Methadone Screen,Urine Negative ng/ml (<300)
[2021-10-30 21:42] LABS: Opiate Screen,Urine Negative ng/ml (<300)
[2021-10-30 21:44] LABS: Phencyclidine Screen,Urine Negative ng/ml (<25)
== END ==
PROVIDERS: PCP Physician Assistant; Visit Provider Physician Assistant
DX: Z79.899 Other long term (current) drug therapy (principal)
CPT/HCPCS: 80305

== ENCOUNTER → 2021-12-20 15:52 | Outpatient (CLI) | payer MEDICARE, MEDICAID, SELFPAY ==
[2021-12-20 19:30] LABS: Amphetamine/Metha Screen,Urine Positive ng/ml (<1000); Barbiturates Screen,Urine Negative ng/ml (<200)
[2021-12-20 19:31] LABS: Benzodiazepines Screen,Urine Negative ng/ml (<200)
[2021-12-20 19:32] LABS: Cannabinoid Screen,Urine Negative ng/ml (<50); Cocaine Screen,Urine Negative ng/ml (<300)
[2021-12-20 19:33] LABS: Methadone Screen,Urine Negative ng/ml (<300)
[2021-12-20 19:34] LABS: Opiate Screen,Urine Negative ng/ml (<300); Phencyclidine Screen,Urine Negative ng/ml (<25)
== END ==
PROVIDERS: PCP Nurse Practitioner Family; Visit Provider Nurse Practitioner Family
DX: Z79.899 Other long term (current) drug therapy (principal); N39.0 Urinary tract infection, site not specified
CPT/HCPCS: 80305; 87086

== ENCOUNTER → 2022-03-21 15:03 | Outpatient (CLI) | payer MEDICARE, MEDICAID, SELFPAY ==
--- NOTE | 2022-03-21 15:03 | MR_ITS ---
PROCEDURE INFORMATION: Exam: MR Lumbar Spine Without Contrast Exam date and time: 03/21/2022 3:17 PM Age: 41 years old Clinical indication: Low back pain TECHNIQUE: Imaging protocol: Magnetic resonance imaging of the lumbar spine without contrast. COMPARISON: CR [id number] XR lumbar spine min 4V 10/23/2017 5:54 PM FINDINGS: Bones/joints: The lumbar vertebral bodies are normal in height, without abnormal subluxation or acute marrow edema. Spinal cord: The distal end of the conus medullaris ends at L1, normal in position. L1-L2: There is no significant narrowing of the thecal sac or neural foramina. L2-L3: There is no significant narrowing of the thecal sac or neural foramina. L3-L4: There is no significant narrowing of the thecal sac or neural foramina. L4-L5: There is no significant narrowing of the thecal sac or neural foramina. Bilateral facet arthropathy with hypertrophy of the ligamentum flavum. L5-S1: Bilateral facet arthropathy. A broad-based disc bulge with protrusion are visualized causing effacement of the anterior epidural fat, without significant spinal canal stenosis. No significant narrowing of the right neural foramen. There is mild bulging into the left neural foramen, without significant neural foraminal narrowing. A tiny annular tear is identified at the posterior aspect of the disc. There is a decrease in the T2 signal intensity of the disc. Soft tissues: No significant paraspinal swelling. Other findings: For discussion of findings within the sacrum, refer to the sacral MRI report from the same day. IMPRESSION: 1. Degenerative changes are visualized involving the lower lumbar spine, as described above. 2. At L5-S1, a broad-based disc bulge with protrusion are visualized causing effacement of the anterior epidural fat, without significant spinal canal stenosis. 3. Additional findings described above.
--- NOTE | 2022-03-21 15:03 | MR_ITS ---
FINAL REPORT CLINICAL HISTORY: Back pain, left leg swelling, SI joint pain; prior tailbone fracture COMPARISON: None FINDINGS: Multiplanar MR images of the pelvis were performed without contrast. There is no fracture, bone bruising or marrow edema. No bony mass is identified. There is no evidence of avascular necrosis. No significant joint effusion is seen. The musculature is intact. The tendons are intact. There is a 23 mm left pelvic mass which may represent ovarian cyst. The uterus is very heterogeneous and lobular, not typical appearance for fibroids, of uncertain etiology. Transvaginal pelvic ultrasound may be helpful. There is a small central L5-S1 disc protrusion. IMPRESSION: Heterogeneous and lobular uterus of uncertain etiology. Transvaginal pelvic ultrasound may be helpful. Small central L5-S1 disc protrusion. Possible left ovarian cyst. Reviewed, Interpreted and Dictated by Dre Morfin III, MD Transcribed by Brooklyn John Authenticated and [facility]
== END ==
PROVIDERS: PCP Nurse Practitioner Family; Visit Provider Physician Assistant
DX: M54.50 Low back pain, unspecified (principal)
CPT/HCPCS: 72148; 72195; 76376

== ENCOUNTER → 2022-03-28 13:36 | Outpatient (CLI) | payer MEDICARE, MEDICAID, SELFPAY ==
[2022-03-28 19:39] LABS: Barbiturates Screen,Urine Negative ng/ml (<200); Benzodiazepines Screen,Urine Negative ng/ml (<200)
[2022-03-28 19:40] LABS: Amphetamine/Metha Screen,Urine Positive ng/ml (<1000)
[2022-03-28 19:41] LABS: Cannabinoid Screen,Urine Negative ng/ml (<50); Cocaine Screen,Urine Negative ng/ml (<300)
[2022-03-28 19:42] LABS: Methadone Screen,Urine Negative ng/ml (<300); Phencyclidine Screen,Urine Negative ng/ml (<25)
[2022-03-28 19:43] LABS: Opiate Screen,Urine Negative ng/ml (<300)
== END ==
PROVIDERS: PCP Physician Assistant; Visit Provider Physician Assistant
DX: Z79.899 Other long term (current) drug therapy (principal)
CPT/HCPCS: 80305

== ENCOUNTER → 2022-03-28 14:27 | Outpatient (CLI) | payer MEDICARE, MEDICAID, SELFPAY ==
--- NOTE | 2022-03-28 14:27 | US_ITS ---
FINAL REPORT TECHNIQUE: Sonographic images of the pelvis were obtained transvaginally. CLINICAL HISTORY: enlarged uterus COMPARISON: none FINDINGS: The uterus is retroverted and retroflexed. It measures 6.1 x 2.3 x 4.4 cm. The endometrial stripe measures 5 mm. There is a small amount of fluid within the endometrial cavity which could be normal in a premenopausal patient. There is prominent uterine vasculature, nonspecific but could be seen in pelvic congestive syndrome. The cervix is unremarkable except for a small amount of fluid which could be normal. The right ovary measures 1.6 x 1.0 x 1.0 cm. It is normal in appearance. The left ovary measures 2.9 x 1.9 x 1.8 cm. There is a dominant follicle. The left ovary is otherwise normal. Color imaging to the ovaries is within normal limits. There is no free fluid. IMPRESSION: Retroverted uterus. Otherwise normal in size. Small amount of fluid within the endometrial cavity, can be normal in a premenopausal patient. Prominent uterine vasculature, can be associated with pelvic congestion syndrome. Reviewed, Interpreted and Dictated by Brittany Crawley MD Transcribed by Brooklyn John Authenticated and [facility]
--- NOTE | 2022-03-28 14:31 | US_ITS ---
FINAL REPORT TECHNIQUE: Sonographic images of the thyroid gland were obtained in the longitudinal and transverse planes. CLINICAL HISTORY: Goiter COMPARISON: 09/19/2020 FINDINGS: The right lobe measures 4.2 x 1.4 x 1.8 cm. The right lobe is heterogeneous. There are several tiny colloid cysts. The previously seen nodule is less and no longer contains cystic components. It is isoechoic. The remainder of the thyroid is estimated at 1.2 cm. The left lobe measures 4.4 x 1.0 x 2.0 cm. The left lobe is homogeneous. There are multiple small colloid cysts. The isthmus measures 2 mm. This is normal. IMPRESSION: Bilateral colloid cysts, benign. Previously seen right thyroid nodule is slightly less apparent than on the prior study. It is a TI-RADS category 3. Consider continued follow-up. Reviewed, Interpreted and Dictated by Brittany Crawley MD Transcribed by Brooklyn John Authenticated and [facility]
== END ==
PROVIDERS: PCP Physician Assistant; Visit Provider Physician Assistant
DX: N85.2 Hypertrophy of uterus (principal); E04.9 Nontoxic goiter, unspecified; Z79.899 Other long term (current) drug therapy
CPT/HCPCS: 76536; 76830; 80305

== ENCOUNTER → 2022-07-30 14:00 | Outpatient (CLI) | payer MEDICARE, MEDICAID, SELFPAY ==
[2022-07-30 14:01] LABS: Amphetamine/Metha Screen,Urine Positive ng/ml (<1000); Barbiturates Screen,Urine Negative ng/ml (<200)
[2022-07-30 14:02] LABS: Benzodiazepines Screen,Urine Negative ng/ml (<200)
[2022-07-30 14:03] LABS: Cannabinoid Screen,Urine Negative ng/ml (<50); Cocaine Screen,Urine Negative ng/ml (<300)
[2022-07-30 14:04] LABS: Methadone Screen,Urine Negative ng/ml (<300)
[2022-07-30 14:05] LABS: Opiate Screen,Urine Negative ng/ml (<300); Phencyclidine Screen,Urine Negative ng/ml (<25)
== END ==
PROVIDERS: PCP Physician Assistant; Visit Provider Physician Assistant
DX: Z79.899 Other long term (current) drug therapy (principal)
CPT/HCPCS: 80305

== ENCOUNTER → 2022-08-08 16:05 | Outpatient (CLI) | payer MEDICARE, MEDICAID, SELFPAY ==
--- NOTE | 2022-08-08 16:05 | MM_ITS ---
PROCEDURE INFORMATION: Exam: MG Bilateral Screening 3D Mammography Exam date and time: 08/08/2022 4:16 PM Age: 42 years old Clinical indication: Screening examination TECHNIQUE: Imaging protocol: Bilateral Screening tomosynthesis and 2D mammography including computer-aided detection (CAD) when performed. COMPARISON: No relevant prior studies available. FINDINGS: MAMMOGRAPHY: Breast composition: The breasts are heterogeneously dense, which may obscure small masses. Mass: 1.5 cm ovoid mass adjacent to a 1.0 cm mass in the right anterior upper outer quadrant . Architectural distortion: None. Calcifications: No suspicious calcifications. Asymmetric density: None. Skin thickening: None. Axillary adenopathy: None. Implants: Subpectoral saline breast implants are present. IMPRESSION: Patient to be recalled for right breast ultrasound for further evaluation of 2 right breast masses. ASSESSMENT: BI-RADS Category 0: Incomplete- Need Additional Imaging Evaluation and/or Prior Mammograms for Comparison
== END ==
PROVIDERS: PCP Physician Assistant; Visit Provider Physician Assistant
DX: Z12.31 Encounter for screening mammogram for malignant neoplasm of breast (principal)
CPT/HCPCS: 77063; 77067

== ENCOUNTER → 2022-08-27 15:03 | Outpatient (CLI) | payer MEDICARE, MEDICAID, SELFPAY ==
--- NOTE | 2022-08-27 15:03 | US_ITS ---
PROCEDURE INFORMATION: Exam: US Right Breast, Complete Exam date and time: 08/27/2022 3:11 PM Age: 42 years old Clinical indication: Patient recalled for further evaluation of 2 right breast masses TECHNIQUE: Imaging protocol: Complete ultrasound of all four quadrants of the right breast and the retroareolar regions, including ultrasound of the axilla when performed. COMPARISON: MG MM DIG SC MAMM IMPLANT BI CAD 08/08/2022 4:16 PM FINDINGS: Breast: Sonographic images of the right 12 o'clock axis 2 cm from the nipple demonstrate a 1.3 cm cyst adjacent to a 0.6 cm cyst most closely corresponding to the masses on mammography. Additional few scattered subcentimeter cysts are noted in the right breast. No solid masses. No architectural distortion or acoustical shadowing. Intact implant. No axillary adenopathy. IMPRESSION: Masses on screening mammography correspond to underlying cystic change sonographically. There is no mammographic evidence of malignancy.Annual bilateral mammographic screening is recommended unless otherwise clinically indicated. ASSESSMENT: BI-RADS Category 2: Benign
== END ==
PROVIDERS: PCP Physician Assistant; Visit Provider Physician Assistant
DX: R92.8 Other abnormal and inconclusive findings on diagnostic imaging of breast (principal)
CPT/HCPCS: 76641

== ENCOUNTER → 2022-10-17 12:56 | Outpatient (CLI) | payer MEDICARE, MEDICAID, SELFPAY ==
--- NOTE | 2022-10-17 12:56 | US_ITS ---
PROCEDURE INFORMATION: Exam: US Left Breast, Complete Exam date and time: 10/17/2022 1:11 PM Age: 42 years old Clinical indication: Palpable Left breast mass TECHNIQUE: Imaging protocol: Complete ultrasound of all four quadrants of the left breast and the retroareolar regions, including ultrasound of the axilla when performed. COMPARISON: MG MM DIG SC MAMM IMPLANT BI CAD 08/08/2022 4:16 PM FINDINGS: Breast: Sonographic images of the left breast including the retroareolar region, all 4 quadrants and the axilla do not demonstrate any solid masses. No focal findings in the left 11 o'clock axis 8 cm from the nipple where the patient reports a palpable abnormality. Review of the patient's most recent mammogram dated 08/08/2022 did not demonstrate any suspicious findings in the left upper inner quadrant.. Minimal subcentimeter cystic change is present in the left breast. No architectural distortion or acoustical shadowing. Intact saline implant. No skin thickening or axillary adenopathy. IMPRESSION: Palpable abnormality in the left breast corresponds both mammographically and sonographically to normal fibroglandular structures. There is no mammographic evidence of malignancy. Further evaluation of a palpable abnormality should be based on clinical grounds regardless of radiographic findings or lack thereof. Annual mammographic screening is recommended unless otherwise clinically indicated. ASSESSMENT: BI-RADS Category 2: Benign
== END ==
PROVIDERS: PCP Physician Assistant; Visit Provider Physician Assistant
DX: N63.20 Unspecified lump in the left breast, unspecified quadrant (principal); R92.8 Other abnormal and inconclusive findings on diagnostic imaging of breast
CPT/HCPCS: 76641

== ENCOUNTER 2022-10-26 15:30 | Emergency (ER) | payer MEDICARE, MEDICAID, SELFPAY ==
[2022-10-26 15:45] VITALS: BP 145/99; PULSE 123; RESP 20; TEMP 36.9; O2SAT 100; BMI 20.9
--- NOTE | 2022-10-26 16:00 | EXP.UTC ---
Discharge Plan Disposition Patient Disposition: Home, Self-Care Condition: Good Prescriptions Prescriptions: New triamcinolone acetonide 0.5 % ointment 1 applic topical TID Qty: 15 0RF Rx Instructions: apply to rash as directed No Action meclizine 25 mg tablet 25 mg PO TID PRN chlorpheniramine maleate 12 mg tablet extended release 12 mg PO HS PRN (Reason: cold symptoms) Qty: 90 3RF Breo Ellipta 200-25 mcg/dose blister with device 1 inh INHALATION DAILY Qty: 28 11RF indomethacin 50 mg capsule See Rx Instructions .ROUTE .COMPLEX Qty: 90 3RF Dose Instruction: TAKE ONE CAPSULE BY MOUTH EVERY DAY AT BEDTIME --TAKE WITH FOOD-- Rx Instructions: TAKE ONE CAPSULE BY MOUTH EVERY DAY AT BEDTIME --TAKE WITH FOOD-- omeprazole 40 mg capsule,delayed release(DR/EC) See Rx Instructions .ROUTE .COMPLEX Qty: 180 3RF Dose Instruction: TAKE ONE CAPSULE BY MOUTH TWICE DAILY Rx Instructions: TAKE ONE CAPSULE BY MOUTH TWICE DAILY Ubrelvy 100 mg tablet 100 mg PO ONCE PRN (Reason: migraine headache) Qty: 16 0RF triamcinolone acetonide 0.1 % paste 1 applic dental QID PRN (Reason: mouth irritation) Qty: 5 0RF Rx Instructions: Mix with orabase for blisters on tongue Orabase (benzocaine) 20 % paste 1 applic mucous membrane QID PRN (Reason: mouth irritation) Qty: 11.9 0RF clopidogrel [Plavix] 75 mg tablet 75 mg PO DAILY Patient Comments: Rxd elsewhere pregabalin [Lyrica] 75 mg capsule 75 mg PO BID Qty: 180 0RF tizanidine 4 mg tablet See Rx Instructions .ROUTE .COMPLEX Qty: 180 3RF Dose Instruction: TAKE ONE TABLET BY MOUTH THREE TIMES DAILY NEEDED FOR muscle spasticity MAY CAUSE DROWSINESS Rx Instructions: TAKE ONE TABLET BY MOUTH THREE TIMES DAILY NEEDED FOR muscle spasticity MAY CAUSE DROWSINESS (DME) BD Luer-Beata Syringe 3 mL 25 gauge x 1 syringe See Rx Instructions .ROUTE .MEDSUPPLY Qty: 1 Patient Comments: USE INTRAMUSCULARLY DIRECTED FOR b12 injections Rx Instructions: As directed Savella 12.5 mg tablet 12.5 mg PO DAILY Qty: 30 2RF Qulipta 60 mg tablet 60 mg PO DAILY Qty: 90 3RF medroxyprogesterone 150 mg/mL suspension See Rx Instructions .ROUTE .COMPLEX Qty: 1 2RF Dose Instruction: INJECT 1ML INTRAMUSCULARLY ONCE EVERY 3 MONTHS DIRECTED Rx Instructions: INJECT 1ML INTRAMUSCULARLY ONCE EVERY 3 MONTHS DIRECTED levocetirizine 5 mg tablet See Rx Instructions .ROUTE .COMPLEX Qty: 90 5RF Dose Instruction: TAKE ONE TABLET BY MOUTH EVERY DAY Rx Instructions: TAKE ONE TABLET BY MOUTH EVERY DAY montelukast 10 mg tablet See Rx Instructions .ROUTE .COMPLEX Qty: 90 3RF Dose Instruction: TAKE ONE TABLET BY MOUTH EVERY DAY Rx Instructions: TAKE ONE TABLET BY MOUTH EVERY DAY dextroamphetamine-amphetamine 30 mg tablet 30 mg PO BID Qty: 60 0RF Referrals Follow up/Referrals: Eliana Rodarte PA [Primary Care Provider] - See instructions Activity Restrictions/Add. Instructions Additional Instructions/Restrictions: Oatmeal bathes may help to dry the rash Use ointment as prescribed Follow up with your Family Doctor if no improvement or any worsening of symptoms Return if needed Straight to ER if any life threatening symptoms Clinical Impressions Clinical Impression: Contact dermatitis Qualifiers: Contact dermatitis type: unspecified Contact dermatitis trigger: unspecified trigger Qualified Code(s): L25.9 - Unspecified contact dermatitis, unspecified cause Instructions Patient Instructions: DI for Rash, Contact Dermatitis Discharge ED Provider: Marlin Reilly [facility] General Stated complaint: rash Mode of Arrival: Ambulatory Source of Information: Patient Limitations: No Limitations Time Seen by Provider: 10/26/22 16:01 Description of Symptoms (Recalled from Triage Doc. by RN): PATIENT C/O RA
[2022-10-26 16:22] VITALS: BP 128/89; PULSE 110; RESP 20; TEMP 36.9; O2SAT 100
== END 2022-10-26 16:39 | disposition home or self-care (01) ==
PROVIDERS: Emergency Provider Nurse Practitioner; PCP Physician Assistant
DX: L25.9 Unspecified contact dermatitis, unspecified cause (principal); E03.9 Hypothyroidism, unspecified; E78.5 Hyperlipidemia, unspecified; G47.00 Insomnia, unspecified; E55.9 Vitamin D deficiency, unspecified; F90.9 Attention-deficit hyperactivity disorder, unspecified type
CPT/HCPCS: 96372; 99212; 99214; G0463

== ENCOUNTER → 2022-11-29 23:10 | Outpatient (CLI) | payer MEDICARE, MEDICAID, SELFPAY ==
[2022-11-29 19:20] LABS: Barbiturates Screen,Urine Negative ng/ml (<200)
[2022-11-29 19:21] LABS: Benzodiazepines Screen,Urine Negative ng/ml (<200)
[2022-11-29 19:22] LABS: Amphetamine/Metha Screen,Urine Positive ng/ml (<1000); Cocaine Screen,Urine Negative ng/ml (<300)
[2022-11-29 19:23] LABS: Methadone Screen,Urine Negative ng/ml (<300)
[2022-11-29 19:24] LABS: Cannabinoid Screen,Urine Negative ng/ml (<50); Opiate Screen,Urine Negative ng/ml (<300)
[2022-11-29 19:25] LABS: Phencyclidine Screen,Urine Negative ng/ml (<25)
== END ==
PROVIDERS: PCP Physician Assistant; Visit Provider Physician Assistant
DX: Z79.899 Other long term (current) drug therapy (principal)
CPT/HCPCS: 80305

== ENCOUNTER → 2023-01-15 09:17 | Outpatient (CLI) | payer MEDICARE, MEDICAID, SELFPAY ==
--- NOTE | 2023-01-15 09:17 | XR_ITS ---
FINAL REPORT TECHNIQUE: Bone densitometry calculations of the lumbar spine and left hip were obtained. CLINICAL HISTORY: osteoporosis patient has a stent in left iliac. It may have been partially over L4, but it was hard to see FINDINGS: Using L1-4, the bone mineral density of the spine is 0.803 g/cm2, corresponding to T-score of -2.2 and a Z score of -2.0. This is within the range of osteopenia. Using the left hip total, the bone mineral density of the femoral neck is 0.777 g/cm2, corresponding to a T-score of -1.3 and a Z-score of -1.2. This is within the range of osteopenia. Using the right hip, the bone mineral density of the femoral neck is 0.732 g/cm2, corresponding to a T-score of -1.1 and a Z-score of -0.7. This is within the range of osteopenia. FRAX 10 year fracture risk is 3.9% for a hip fracture and 0.3% for a major osteoporotic fracture. NOTE: T-score: Standard deviation compared with peak bone mass of young adult mean. *Following the recommendations of the International Society of Bone densitometry, classification of hip BMD is based on the lower of two T-scores; total hip or femoral neck. IMPRESSION: 1. Bone mineral density of the lumbar spine within the range of osteopenia. 2. Bone mineral density of the left femoral neck within the range of osteopenia. 3. Bone mineral density of the right femoral neck within the range of osteopenia. Reviewed, Interpreted and Dictated by Brittany Crawley MD Transcribed by Asha Ogden Authenticated and . [facility]
== END ==
PROVIDERS: PCP Physician Assistant; Visit Provider Physician Assistant
DX: M81.0 Age-related osteoporosis without current pathological fracture (principal)
CPT/HCPCS: 77080

== ENCOUNTER → 2023-02-28 09:04 | Outpatient (CLI) | payer MEDICARE, MEDICAID, SELFPAY ==
[2023-02-28 20:16] LABS: Barbiturates Screen,Urine Negative ng/ml (<200); Benzodiazepines Screen,Urine Negative ng/ml (<200)
[2023-02-28 20:17] LABS: Amphetamine/Metha Screen,Urine Positive ng/ml (<1000); Cannabinoid Screen,Urine Negative ng/ml (<50)
[2023-02-28 20:18] LABS: Cocaine Screen,Urine Negative ng/ml (<300)
[2023-02-28 20:19] LABS: Methadone Screen,Urine Negative ng/ml (<300); Opiate Screen,Urine Negative ng/ml (<300)
[2023-02-28 20:20] LABS: Phencyclidine Screen,Urine Negative ng/ml (<25)
== END ==
PROVIDERS: PCP Nurse Practitioner Family; Visit Provider Nurse Practitioner Family
DX: G89.29 Other chronic pain (principal); Z79.899 Other long term (current) drug therapy
CPT/HCPCS: 80305

== ENCOUNTER 2023-06-01 13:57 | Emergency (ER) | payer MEDICARE, MEDICAID, SELFPAY ==
[2023-06-01 14:15] VITALS: BP 154/72; PULSE 101; RESP 18; TEMP 36.6; O2SAT 96; BMI 22.8
--- NOTE | 2023-06-01 14:51 | EXP.UTC ---
Discharge Plan Disposition Patient Disposition: Home, Self-Care Condition: Good Prescriptions Prescriptions: New clindamycin HCl 300 mg capsule 300 mg PO TID 10 Days Qty: 30 0RF No Action meclizine 25 mg tablet 25 mg PO TID PRN Breo Ellipta 200-25 mcg/dose blister with device 1 inh INHALATION DAILY Qty: 28 11RF indomethacin 50 mg capsule See Rx Instructions .ROUTE .COMPLEX Qty: 90 3RF Dose Instruction: TAKE ONE CAPSULE BY MOUTH EVERY DAY AT BEDTIME --TAKE WITH FOOD-- Rx Instructions: TAKE ONE CAPSULE BY MOUTH EVERY DAY AT BEDTIME --TAKE WITH FOOD-- omeprazole 40 mg capsule,delayed release(DR/EC) See Rx Instructions .ROUTE .COMPLEX Qty: 180 3RF Dose Instruction: TAKE ONE CAPSULE BY MOUTH TWICE DAILY Rx Instructions: TAKE ONE CAPSULE BY MOUTH TWICE DAILY Orabase (benzocaine) 20 % paste 1 applic mucous membrane QID PRN (Reason: mouth irritation) Qty: 11.9 0RF Nurtec ODT 75 mg tablet,disintegrating 75 mg PO Q OTHER DAY Qty: 15 0RF tizanidine 4 mg tablet See Rx Instructions .ROUTE .COMPLEX Qty: 180 3RF Dose Instruction: TAKE ONE TABLET BY MOUTH THREE TIMES DAILY NEEDED FOR muscle spasticity MAY CAUSE DROWSINESS Rx Instructions: TAKE ONE TABLET BY MOUTH THREE TIMES DAILY NEEDED FOR muscle spasticity MAY CAUSE DROWSINESS medroxyprogesterone 150 mg/mL suspension See Rx Instructions .ROUTE .COMPLEX Qty: 1 2RF Dose Instruction: INJECT 1ML INTRAMUSCULARLY ONCE EVERY 3 MONTHS DIRECTED Rx Instructions: INJECT 1ML INTRAMUSCULARLY ONCE EVERY 3 MONTHS DIRECTED pregabalin [Lyrica] 75 mg capsule 75 mg PO BID Qty: 180 1RF dextroamphetamine-amphetamine 30 mg tablet 30 mg PO BID 30 Days Qty: 60 0RF (DME) BD Luer-Beata Syringe 3 mL 25 gauge x 1 syringe See Rx Instructions .ROUTE .MEDSUPPLY Qty: 1 Patient Comments: USE INTRAMUSCULARLY DIRECTED FOR b12 injections Rx Instructions: As directed clopidogrel [Plavix] 75 mg tablet 75 mg PO DAILY Qty: 90 0RF clobetasol 0.05 % cream 1 applic topical BID Qty: 60 0RF cyclobenzaprine 10 mg tablet 10 mg PO BID Qty: 60 2RF Qulipta 60 mg tablet 60 mg PO DAILY Qty: 90 3RF levocetirizine 5 mg tablet See Rx Instructions .ROUTE .COMPLEX Qty: 90 5RF Dose Instruction: TAKE ONE TABLET BY MOUTH EVERY DAY Rx Instructions: TAKE ONE TABLET BY MOUTH EVERY DAY montelukast 10 mg tablet See Rx Instructions .ROUTE .COMPLEX Qty: 90 3RF Dose Instruction: TAKE ONE TABLET BY MOUTH EVERY DAY Rx Instructions: TAKE ONE TABLET BY MOUTH EVERY DAY Naltrex 4.5 mg capsule 4 mg PO DAILY 90 Days Qty: 90 0RF clindamycin phosphate 1 % gel 1 applic topical DAILY Qty: 60 5RF clindamycin phosphate 1 % solution 1 applic topical DAILY Qty: 60 5RF pregabalin [Lyrica] 100 mg capsule 100 mg PO BID Qty: 60 2RF Referrals Follow up/Referrals: Eliana Rodarte PA [Primary Care Provider] - See instructions Activity Restrictions/Add. Instructions Additional Instructions/Restrictions: If symptoms persist, follow up with dentist. Clinical Impressions Clinical Impression: Dental abrasion, localized Instructions Patient Instructions: DI for Dental Implant Discharge ED Provider: Mildred Dozier [facility] General Stated complaint: TMJ, ear, neck, jaw pain Mode of Arrival: Ambulatory Source of Information: Patient Limitations: No Limitations Time Seen by Provider: 06/01/23 14:34 Description of Symptoms (Recalled from Triage Doc. by RN): Pt has been having pain in jaw, neck, and ear. Pt's has swollen lymph nodes. HEENT Symptoms (Recalled from RN notes): Yes Resp Symptoms (Recalled from RN notes): No Skin Symptoms (Recalled from RN notes): No MS Symptoms (Recalled from RN notes): No Functional Status (Recalled from RN notes): n/a History of Present Illness Provider Complaint: Pt relates that she has had right side jaw pain that goes up into her ear. She reports frequent TMJ pain. She further reports having dental pain and swelling after eating a chip that broke down into her gums. She has dental implants and feels that she is developing and infection and is concerned. Related Data Home Medications Medication Instructions Recorded Confirmed meclizine 25 mg tablet 25 mg PO TID PRN 03/20/17 05/08/23 syringe with needle 3 mL 25 gauge #1 ea 04/26/21 05/08/23 x 1 (BD Luer-Beata Syringe) Previous Rx's Medication Instructions Recorded fluticasone furoate 200 1 inh inhalation DAILY #28 ea 10/30/21 mcg-vilanterol 25 mcg/dose inhalation powder (Breo Ellipta) indomethacin 50 mg capsule See Rx Instructions .Route 10/30/21 .COMPLEX #90 caps omeprazole 40 mg capsule,delayed See Rx Instructions .Route 10/30/21 release .COMPLEX #180 caps atogepant 60 mg tablet (Qulipta) 60 mg PO DAILY #90 tabs 06/20/22 benzocaine 20 % mucosal paste 1 applic mucous membrane QID PRN 07/30/22 (Orabase (benzocaine)) mouth irritation #11.9 grams levocetirizine 5 mg tablet See Rx Instructions .Route 10/15/22 .COMPLEX #90 tabs montelukast 10 mg tablet See Rx Instructions .Route 10/15/22 .COMPLEX #90 tabs clobetasol 0.05 % topical cream 1 applic topical BID #60 grams 12/26/22 clopidogrel 75 mg tablet (Plavix) 75 mg PO DAILY #90 tabs 12/26/22 cyclobenzaprine 10 mg tablet 10 mg PO BID #60 tabs 12/26/22 naltrexone 4.5 mg capsule (Naltrex) 4 mg (0.8889 x 4.5 mg) PO DAILY 01/11/23 pain 90 days #90 caps medroxyprogesterone 150 mg/mL See Rx Instructions .Route 02/28/23 intramuscular suspension .COMPLEX #1 mL rimegepant 75 mg disintegrating 75 mg PO Q OTHER DAY #15 tabs 02/28/23 tablet (Nurtec ODT) tizanidine 4 mg tablet See Rx Instructions .Route 02/28/23 .COMPLEX #180 tabs pregabalin 75 mg capsule (Lyrica) 75 mg PO BID #180 caps 05/08/23 dextroamphetamine-amphetamine 30 30 mg PO BID 30 days #60 tabs 05/10/23 mg tablet clindamycin phosphate 1 % topical 1 applic topical DAILY #60 grams 05/16/23 gel clindamycin phosphate 1 % topical 1 applic topical DAILY #60 mL 05/16/23 solution pregabalin 100 mg capsule (Lyrica) 100 mg PO BID #60 caps 05/28/23 clindamycin HCl 300 mg capsule 300 mg PO TID 10 days #30 caps 06/01/23 Allergies Allergy/AdvReac Type Severity Reaction Status Date / Time penicillin G Allergy Severe Anaphylaxis Verified 06/01/23 14:37 atomoxetine [From Strattera] Allergy Mild Weight loss Verified 06/01/23 14:37 brompheniramine Allergy Mild hyper Verified 06/01/23 14:37 [From Dimetapp (brompheniramine-PPA)] hydroxyzine Allergy Mild Verified 06/01/23 14:37 melatonin Allergy Mild Verified 06/01/23 14:37 Methotrexate Analogues Allergy Mild Sick Verified 06/01/23 14:37 methylphenidate Allergy Mild Paranoia Verified 06/01/23 14:37 [From Concerta] mirtazapine [From Remeron] Allergy Mild Verified 06/01/23 14:37 phenylpropanolamine Allergy Mild hyper Verified 06/01/23 14:37 [From Dimetapp (brompheniramine-PPA)] prednisone Allergy Mild swelling Verified 06/01/23 14:37 quetiapine [From Seroquel] Allergy Mild Nightmares Verified 06/01/23 14:37 sulfamethoxazole Allergy Mild Kidney Verified 06/01/23 14:37 [From Bactrim] issues trazodone Allergy Mild Verified 06/01/23 14:37 trimethoprim [From Bactrim] Allergy Mild Kidney Verified 06/01/23 14:37 issues zolpidem [From Ambien] Allergy Mild Verified 06/01/23 14:37 doxycycline Allergy Unknown Verified 06/01/23 14:37 duloxetine [From Cymbalta] Allergy Unknown Verified 06/01/23 14:37 Worker's Comp Is this a Worker's Comp case?: No [facility] Disclaimer: The information contained in this section may have been updated after the patient was seen, as this information can be updated by other users. Medical History (Updated 06/01/23 @ 15:01 by Mildred Dozier APRN) Ear pain Migraine headache Varicose veins of both lower extremities Interstitial cystitis Hx of Baldev thyroiditis Bilateral hip pain Abdominal pain Vitamin D deficiency Hyperlipidemia Hypothyroidism Insomnia Attention Deficit Hyperactivity Disorder (ADHD) Social History Smoking Status: Former smoker tobacco type: cigarettes packs per day: 1 alcohol intake: never substance use type: denies use current occupational status: other Travel in the last 8 weeks: None household members: children housing: house ROS Obtained: Yes All systems reviewed & no additional complaints except as documented Constitutional Constitutional: Reports system reviewed and no additional complaints, except as documented and Reports malaise Eyes Eyes: Reports system reviewed and no additional complaints, except as documented ENT Ears, Nose, Mouth, and Throat: Reports system reviewed and no additional complaints, except as documented, Reports dental pain, Reports otalgia and Reports neck pain Cardiovascular Cardiovascular: Reports system reviewed and no additional complaints, except as documented Respiratory Respiratory: Reports system reviewed and no additional complaints, except as documented Gastrointestinal Gastrointestingal: Reports system reviewed and no additional complaints, except as documented Genitourinary Female Genitourinary: Reports system reviewed and no additional complaints, except as documented Musculoskeletal Musculoskeletal: Reports system reviewed and no additional complaints, except as documented and Reports neck pain Integumentary/Breasts Skin/Breast: Reports system reviewed and no additional complaints, except as documented Neurologic Neurologic: Reports system reviewed and no additional complaints, except as documented Endocrine Endocrine: Reports system reviewed and no additional complaints, except as documented Hematologic/Lymphatic Henatologic/Lymphatic: Reports system reviewed and no additional complaints, except as documented Allergic/Immunologic Allergic/Immunologic: Reports system reviewed and no additional complaints, except as documented Physical Exam General General appearance: alert and anxious Comment: Pt followed me to my desk after my exam explaining more about her issues. Head Head exam: atraumatic and normocephalic Eye Eye exam: Present normal appearance Expanded ENT Exam External ear exam: Present normal external inspection TM/Canal exam: Bilateral TM: loss of landmarks ( scaring bilaterally) Nose exam: Present sinus tenderness Nasal speculum exam: Bilateral: normal Mouth exam: Present normal external inspection Teeth exam: Present gingival swelling and other (she has lower implants. At the 26/27 tooth area the gum is red and swollen and tender to touch. ) Throat exam: Present normal inspection Neck Neck exam: Present lymphadenopathy Chest Chest inspection: Present normal inspection and symmetric chest wall rise Respiratory Respiratory exam: Present normal lung sounds bilaterally Cardiovascular Cardiovascular exam: Present regular rate and normal rhythm Abdominal Exam Abdominal exam: Present soft Extremities Exam Extremities exam: Present normal inspection Back Exam Back exam: Present normal inspection Neurological Exam Neurological exam: Present alert and oriented X3 Psychiatric Psychiatric exam: Present anxious Skin Skin exam: Present warm, dry and intact Lymphatic Lymphatic Findings: no adenopathy Medical Decision Making Deng Inquiry Pt receiving controlled substance: No Deng was queried for this patient: No Vital Signs: 06/01/23 14:15 Temperature 97.8 F Temperature Source Oral Pulse Rate [Right Radial] 101 H Respiratory Rate 18 Blood Pressure [Right Arm] 154/72 H Blood Pressure Mean [Right Arm] 99 Blood Pressure Source [Right Arm] Automatic Cuff Blood Pressure Position [Right Arm] Sitting 02 Sat by Pulse Oximetry 96 Oxygen Delivery Method Room Air
[2023-06-01 15:07] VITALS: BP 154/72; PULSE 101; RESP 19; TEMP 36.6; O2SAT 96
== END 2023-06-01 15:07 | disposition home or self-care (01) ==
PROVIDERS: Emergency Provider Nurse Practitioner Family; PCP Physician Assistant
DX: R68.84 Jaw pain (principal); K03.1 Abrasion of teeth; E03.9 Hypothyroidism, unspecified; E78.5 Hyperlipidemia, unspecified; Z87.891 Personal history of nicotine dependence
CPT/HCPCS: 99212; 99214; G0463

== ENCOUNTER 2023-12-23 11:11 | Outpatient (CLI) | payer MEDICARE, MEDICAID, SELFPAY ==
[2023-12-23 19:00] LABS: 25-OH Vitamin D, Total 22.3 ng/mL (30-100)
[2023-12-23 19:36] LABS: Vitamin B12 222 pg/mL (239-931)
[2023-12-24 03:38] LABS: Thyroid Stimulating Hormone 0.77 uIU/mL (0.465-4.68)
== END 2023-12-23 23:59 | disposition home or self-care (01) ==
LOC: LAB.DROPOF 12-24 11:12
PROVIDERS: PCP Family Medicine; Visit Provider Family Medicine
DX: E06.9 Thyroiditis, unspecified (principal); E53.8 Deficiency of other specified B group vitamins; E55.9 Vitamin D deficiency, unspecified; E04.1 Nontoxic single thyroid nodule; I87.1 Compression of vein; R00.0 Tachycardia, unspecified; F90.2 Attention-deficit hyperactivity disorder, combined type; Z95.828 Presence of other vascular implants and grafts
CPT/HCPCS: 82306; 82607; 84443

== ENCOUNTER 2023-12-31 11:11 | Outpatient (CLI) | payer MEDICARE, MEDICAID, SELFPAY ==
--- NOTE | 2023-12-31 11:12 | US_ITS ---
PROCEDURE INFORMATION: Exam: US Soft Tissue Head and Neck, TI-RADS Exam date and time: 12/31/2023 11:16 AM Age: 43 years old Clinical indication: Abnormal findings; Abnormal radiologic study of neck; Additional info: Thryoid nodule fu TECHNIQUE: Imaging protocol: Real-time ultrasound scan of the neck with image documentation. Exam focused on the thyroid. COMPARISON: US THYROID 03/28/2022 2:36 PM FINDINGS: Right thyroid lobe: Right lobe: 4.4 x 1.3 x 1.7 cm. Isoechoic nodule in the lower polar region of approximately 1.4 x 1.1 x 0.7 cm.TIRADS 3. Small non simple colloid cyst versus small hypoechoic nodule of approximately 0.5 x 0.4 x 0.3 cm.TIRADS 2 Left thyroid lobe: Left lobe: 4.3 x 1.1 x 1.6 cm. Numerous colloid cysts largest of approximately 0.6 cm.TIRADS 1. Hypoechoic nodule mid polar region of approximately 0.4 x 0.3 x 0.3 cm. Non simple colloid cyst versus hypoechoic nodule.TIRADS 2 versus 4. Isthmus: Not thickened. IMPRESSION: Thyroid nodules as described above. Stable. COMMENTS: 1. Recommendations for TI-RADS scores are listed below for reference. (See Reference: Jackie) 2. TI-RADS 1, Benign. 0 points: No fine needle aspiration (FNA) or follow-up ultrasound recommended. 3. TI-RADS 2, Not suspicious. 2 points: No FNA or follow-up ultrasound recommended. 4. TI-RADS 3, Mildly suspicious. 3 points: FNA if equal or greater than 2.5 cm. Follow-up ultrasound if 1.5 to 2.4 cm in 1, 3, and 5 years. 5. TI-RADS 4, Moderately Suspicious. 4-6 points: FNA if equal or greater than 1.5 cm. Follow-up ultrasound if 1 to 1.4 cm in 1, 2, 3, and 5 years. 6. TI-RADS 5, Highly Suspicious. 7 points or greater: FNA if equal or greater than 1 cm. Follow-up ultrasound if 0.5 to 0.9 cm every year for 5 years. REFERENCES: Jackie FN, Bee WD, Chris EG et al. ACR Thyroid Imaging, Reporting and Data System (TI-RADS): White Paper of the ACR TI-RADS Committee. J Am Elayne Radiol. 2017; 14: 587-595.
== END 2023-12-31 23:59 | disposition home or self-care (01) ==
LOC: RAD 11:12
PROVIDERS: PCP Family Medicine; Visit Provider Family Medicine
DX: E04.1 Nontoxic single thyroid nodule (principal)
CPT/HCPCS: 76536

== ENCOUNTER 2024-03-31 14:00 | Outpatient (CLI) | payer MEDICARE, MEDICAID, SELFPAY ==
[2024-03-31 18:22] LABS: Basophils % 0.8 % (0.1-2.0); Eosinophils % 0.4 % (0.1-12.0); Hematocrit 42.8 % (37.0-47.0); Hemoglobin 14.1 g/dL (12.2-16.2); Lymphocytes # 1.3 K/mm3 (0.7-4.5); Lymphocytes % 24.4 % (10-50); Mean Corpuscular HGB Conc 32.9 g/dL (31.8-35.4); Mean Corpuscular Hemoglobin 30.5 pg (27.0-31.2); Mean Corpuscular Volume 92.4 fl (81-99); Mean Platelet Volume 10.1 fl (7.4-10.4); Monocytes # 0.3 K/mm3 (0.1-1.0); Monocytes % 6.5 % (1.7-9.3); Neutrophils # 3.5 K/mm3 (1.8-7.8); Neutrophils % 67.3 % (37.0-80.0); Platelet Count 356 K/mm3 (142-424); Red Blood Count 4.63 M/mm3 (4.20-5.40); Red Cell Distribution Width 12.4 % (11.5-17.5); White Blood Count 5.2 K/mm3 (4.8-10.8)
[2024-03-31 18:51] LABS: Alanine Aminotransferase 21 U/L (12-78); Albumin Level 4.6 g/dl (3.5-5.0); Albumin/Globulin Ratio 1.9 (1.1-1.8); Alkaline Phosphatase 133 U/L (38-126); Anion Gap 16.1 mEq/L (5-15); Aspartate Amino Transferase 22 U/L (14-36); Bilirubin,Total 0.5 mg/dl (0.2-1.3); Blood Urea Nitrogen 6 mg/dl (7-17); Calcium 9.6 mg/dl (8.4-10.2); Carbon Dioxide 23 mmol/L (22.0-30.0); Chloride 104 mmol/L (98-107); Chol/HDL Ratio 3.6 (1-3.5); Cholesterol 196 mg/dl (140-200); Estimated Glomerular Filt Rate 92 ml/min (>60); GFR (African American) 112 ML/MIN (>60); Globulin 2.4 g/dL (1.3-3.2); Glucose 105 mg/dl (74-100); HDL Cholesterol 54 mg/dl (40-60); Potassium 4.1 mmoL/L (3.5-5.1); Sodium 139 mmol/L (136-145); Triglycerides 85 mg/dl (30-150); VLDL Cholesterol 17 mg/dL (0-40)
[2024-03-31 19:02] LABS: Direct LDL Cholesterol 124.65 mg/dL (100-129)
[2024-03-31 19:12] LABS: 25-OH Vitamin D, Total 20.3 ng/mL (30-100)
[2024-03-31 19:41] LABS: Vitamin B12 > 1000 pg/mL (239-931)
== END 2024-03-31 23:59 | disposition home or self-care (01) ==
LOC: LAB.DROPOF 04-01 12:20
PROVIDERS: PCP Family Medicine; Visit Provider Family Medicine
DX: E78.5 Hyperlipidemia, unspecified (principal); E55.9 Vitamin D deficiency, unspecified; E53.8 Deficiency of other specified B group vitamins; D64.9 Anemia, unspecified
CPT/HCPCS: 80053; 80061; 82306; 82607; 85025

== ENCOUNTER 2024-06-29 15:45 | Outpatient (CLI) | payer MEDICARE, MEDICAID, SELFPAY ==
[2024-06-29 21:00] LABS: 25-OH Vitamin D, Total 13.1 ng/mL (30-100)
[2024-06-29 23:03] LABS: Vitamin B12 225 pg/mL (239-931)
--- OUTSIDE RECORDS SUMMARY | 2024-06-30 12:43 | XMS_ITS | Clinical Summary ---
Author Organization [facility] Address [address] [place] [address] Phone Care Team Providers Care Watch Inspector Final Movement Name Role Phone Eliana Acosta Unavailable [phone] Ghanshyam Peña MD Unavailable [phone] Reason for Visit and Chief Complaint The Chief Complaint is: Low back pain Problems Includes: Problems addressed during this encounter and other active Problems Current Visit Onset Date Resolved Date Provider Laverne faustin Status Lower Back Pain 12/13/2022 Ghanshyam Peña MD Act mariely Last Documented On 3 12:05PM ; [facility] Plan of Treatment Pending Tests Order Diagnosis Results Due Ordering P rovider Procedure/Tests BGO EMG 12/27/22 Ghanshyam Peña MD Last Documented On 3 12:49PM ; [facility] Assessments Includes: Assessments from this encounter No Assessments Recorded Medical Equipment - Implanted Devices Includes: Current Devices No Medical Equipment Recorded Medications Includes: Medications discussed during this encounter and other current Medications Discontinued / Stopped on this date on 09/27/2022 Clindamycin Phosphate 1% External Solution Provider: Diagnosis: Last Documented On 3 1:41PM By [facility], [facility] Current Medications (continue as prescribed) Depo-Provera 150 MG/ML Intramuscular Suspension 2022 Provider: Diagnosis: Last Documented On 3 1:43PM By [facility], [facility] Indomethacin 50 MG Oral Capsule 12/13/2022 Provider: Diagnosis: Last Documented On 3 1:41PM By L[facility], [facility] Clindamycin Phosphate 1% External Solution 11/29/2022 Provider: Diagnosis: Last Documented On 3 12:17PM By Lillian Kwong ; [facility], [facility] Montelukast Sodium 10 MG Oral Tablet 10/27/2022 Prov ider: Diagnosis: Last Documented On 3 12:17PM By Lillian Kwong ; [facility], [facility] Pregabalin 75 MG Oral Capsule 10/27/2022 Provider: Sergio Salcedo APRN Diagnosis: Last Documented On 3 12:17PM By Lillian Kwong ; [facility], [facility] Qulipta 60 MG Oral Tablet 10/27/2022 Provider: Diagnosis: Last Documented On 3 12:17PM By Lillian Kwong ; [facility], [facility] Levocetirizine Dihydrochloride 5 MG Oral Tablet 2022 Provider: Diagnosis: Last Documented On 3 12:17PM By Lillian Kwong ; [facility], [facility] Amphetamine-Dextroamphetamin e 30 MG Oral Tablet 10/27/2022 Provider: Chavo Shaver MD Diagnosis: Last Documented On 3 12:17PM By Lillian Kwong ; [facility], [facility] Triamcinolone Acetonide 0.5% External Ointment 023 Provider: Diagnosis: Last Documented On 3 12:17PM By Lillian Kwong ; [facility], [facility] medroxyPROGESTERone Acetate 150 MG/ML Intramuscular Suspension 10/11/2022 Provider: Sergio MERCADO Diagnosis: Last Documented On 3 12:17PM By Lillian Kwong ; [facility], [facility] tiZANidine HCl 4 MG Oral Tablet 09/27/2022 Provider: Diagnosis: Last Documented On 3 12:17PM By Lillian Kwong ; [facility], [facility] Clopidogrel Bisulfate 75 MG Oral Tablet 09/24/2022 Casandra mcfarland: Bayron Barnes MD Diagnosis: Last Documented On 3 12:17PM By Lillian Kwong ; [facility], [facility] Medications Administered Includes: Administered Medications from this encounter No Administered Medications Recorded Vital Signs Includes: Vital Signs from this encounter Vital Name 12/13/2022 12:17P Height (in) 64 Weight (lb) 130 Body Mass Index 22.3 Body Surface Area 1.6 Note: mg Last Documented: On 12/13/2022 12:18P M ; [facility] Results Includes: Results discussed during this encounter No Results Recorded For Specified Dates History of Present Illness Includes: History of Present Illness from this encounter OLYA Vidales is a 42 year old female. - Symptoms lying down and heat makes better standing, sitting and walking makes worse. - Allergy list reviewed - Problem list reviewed - Medication list reviewed - Previous history of gradual onset pain - Sharp pain Symptoms - Stabbing - Pain is throbbing - Pain is dull, aching - History of Physical Therapy - History of Home Exercise - History of Injections Social History Description Last Updated Tobacco non-user 12/13/2022 Last Documented On 3 2:33PM ; [facility], [facility] Caffeine use 12/13/2022 Last Documented On 3 2:31PM ; [facility], [facility] Exercising regularly 12/13/2022 Last Documented On 3 2:31PM ; [facility], [facility] No recent change in diet 12/13/2022 Last Documented On 3 2:31PM ; [facility], [facility] Not a current smoker. quit 01/2019 ~used for 15 yrs 12/13/2022 Last Documented On 3 2:31PM ; [facility], [facility] Not using alcohol 12/13/2022 Last Documented On 3 2:31PM ; [facility], [facility] Not using drugs 12/13/2022 Last Documented On 3 2:31PM ; [facility], [facility] Smoking Status Unknown Procedures and Surgical History Includes: Procedures from this encounter Procedures Code Diagnosis Performing Provider Service L ocation Service Date use of tobacco assessment performed 1000F Last Documented On 3 2:33PM ; [facility], [facility] review of medications documented 1160F Last Documented On 3 2:33PM ; [facility], [facility] Surgical History Last Updated Past Surgical History: stent s, dental implants, zygmatic implants, ear tubes 12/13/2022 Last Documented On 3 2:31PM ; [facility] Medical History Includes: Medical History addressed during this encounter Description Last Updated History of arthritis 12/13/2022 Last Documented On 3 2:31PM ; [facility] History of asthma 12/13/2022 Last Documented On 3 2:31PM ; [facility] History of Heartburn / Acid Reflux 12/13 Last Documented On 3 2:31PM ; [facility] History of Irregular Heartbeat 3 Last Documented On 3 2:31PM ; [facility] History of osteoporosis 12/13/2022 Last Documented On 3 2:31PM ; [facility] History of Thyroid Disease 12/13/2022 Last Documented On 3 2:31PM ; [facility] Family History Includes: Family History addressed during this encounter Description Last Updated Family history of cancer 12/13/2022 Last Documented On 3 2:31PM ; [facility] Family history of heart disease 12/14/19 23 Last Documented On 3 2:31PM ; [facility] Family history of osteoporosis 3 Last Documented On 3 2:31PM ; [facility] Family history of rheumatoid arthritis 1 Last Documented On 3 2:31PM ; [facility] Family history of systemic hypertension 12/13/2022 Last Documented On 3 2:31PM ; [facility] Family history of thromboembolic disease 12/13/2022 Last Documented On 3 2:31PM ; [facility] Stroke / Seizures 12/13/2022 Last Documented On 3 2:31PM ; [facility] Review of Systems Includes: Review of Systems from this encounter Systemic: Feeling tired. No recent weight loss and no recent weight gain. Head: Headache and sinus pain. Eyes: No vision problems and no Cataracts. Glasses/Contacts. No Glaucoma. Otolaryngeal: No hearing loss. Tinnitus. Cardiovascular: No chest pain or discomfort, no palpitations, no Hypertension, and no High Cholesterol. Pulmonary: Daytime asthma symptoms. No chronic cough. No wheezing. Gastrointestinal: No heartburn and no abdominal pain. No Indigestion, no Acid Reflux, no Peptic Ulcer, no GI Stomach Bleed, and no Ulcers. Endocrine: No hot flashes. Muscle weakness. No Diabetes, no Hypothyroid, and no Hyperthyroid. Hematologic: Easy bleeding and a tendency for easy bruising. No Anemia. Musculoskeletal: Arthritis and lower back pain. No soft tissue swelling. Pain localized to one or more joints. Neurological: No dizziness, no convulsions, and no numbness. Psychological: No anxiety, no emotional lability, no depression, and no insomnia. Not crying for no reason. Skin: No dry skin. No Ulcers, no Scars, and no rash. Allergic and Immunologic: Complaint of seasonal allergic reaction. Mental Status Includes: Mental Status from this encounter Description No anxiety Functional Status Includes: Functional Status from this encounter No Functional Status Recorded Physical Exam Includes: Physical Exam from this encounter Allergies Includes: Active Allergies Substance Type Reaction Onset Date Resolved Date Statu s Latex Allergy 12/13/2022 Active Last Documented On 3 1:42PM ; [facility] Encounters Encounter Provider Location Date Check-In Time Check-Out Time Diagnosis Physician Specified Ghanshyam Peña MD [facility] 12/14/19 23 12:10PM 12:41PM Insurance Includes: Active Insurance Policies Plan Name Member ID Group # Subscriber Relationship Effect mariely Dates 1 - Medicare Part B [facility] [id number] Marcelina Vidales Self 03/11/2022 - Unknown 2 - Department For [facility] [id number] Marcelina Vidales Self 03/11/2022 - Unknown Clinical Notes Includes: Clinical Notes from this encounter No Clinical Notes Recorded
--- OUTSIDE RECORDS SUMMARY | 2024-06-30 12:43 | XMS_ITS | Data Portability ---
Author Organization [facility] - [facility] [place] & [place] Conti ADMIN Address [address] [place] [address] Care Team Providers Care Master Printer Name Role Phone NAVNEET FELDER Referring Provider ALANNA JONES Primary Care Provider [phone] Assessment Encounter Date Assessment Date Assessment LastModified by Organization Details LastModified Time 10/22/2023 10/22/2023 Ms. Forte was referred by Dr. Kern for management of chronic migraine headache. The patient has been diagnosed with Baldev's disease. The patient receives Botox injections for migraine headache every 3 months. The patient has taken Sumatriptan, Topiramate, Propranolol, Gabapentin, and Qulipta with minimal benefit. The patient denies DM, anti-coagulant use, and history of MRSA. The patient presents to the clinic today to follow up on pain. The patient complains of right ear pain located at the mastoid with onset following removal of an ear tube The patient has underwent numerous ear tube placements since childhood. The patient recently followed up with ENT, whom is suspicious of TMJ dysfunction (the patient was previously diagnosed with TMJ dysfunction). The patient also has a history of dental implantation, noting that she recently completed Clindamycin. I think that the patient was prescribed an antibiotic for prophylaxis treatment. There is no sign of infection of the oropharynx. The patient notes that another provider was suspicious of mastoiditis. At this time, I don't think that the clinical presentation is consistent with this particular diagnosis, although this should be considered in the differential diagnosis. The patient completed imaging (CT and US) of the region, which was reportedly unremarkable with exception of benign lymph nodes. To gain insight into etiology/patholog y, I will refer to ENT at . The patient would also like to participate in PT with focus on TMJ dysfunction, as such I will place a referral. The patient is scheduled for Botox injections for migraine headache. I will follow up post-procedure and post-PT. I have discussed in great detail our potential treatment options which would include a rehabilitative approach to care. This program would include medication management, Physical Therapy, consideration for interventional procedures as appropriate, and lifestyle modification (diet, weight loss, exercise, smoking/tobacco cessation, holistic approach including meditation and yoga). The patient understands and agrees prior to proceeding with this plan. _ __ __ __ __ __ __ __ __ __ __ __ __ __ __ __ __ __ __ __ __ __ __ __ __ __ __ __ _ RECORDS REVIEW: As per clinic policy, we will have the patient sign a release to obtain previous imaging and clinical notes. ------ PROCEDURE: I counseled the patient extensively and informed of the risks of the procedure, including the risk of paralysis, nerve damage, respiratory arrest, arrhythmias, stroke, weakness, and infection, which although very low, could result in or disability. The patient acknowledged to me that they understand and accept these risks. RN EDUCATION Extensive coordination of care provided by RN to educate patient on upcoming procedure and to coordinate obtaining extensive incoming medical records. _ __ __ __ __ __ __ __ __ __ __ __ __ __ __ __ __ __ __ __ __ __ __ __ __ __ __ __ _ PSYCH: Pain affecting Neuro-psych behavior was discussed. Discussed about pain psychological counseling as a part of the multimodal approach to pain treatment. _ __ __ __ __ __ __ __ __ __ __ __ __ __ __ __ __ __ __ __ __ __ __ __ __ __ __ __ _ REHABILITATION: Discussed with the patient the importance of diet, daily physical activity and PT. Discussed with the patient the need to be scheduled for physical therapy since physical therapy will prolong the benefits of the procedure and interventions. _ __ __ __ __ __ __ __ __ __ __ __ __ __ __ __ __ __ __ __ __ __ __ __ __ __ __ __ _ ESTEFANIA: [id number] I have reviewed patient's ESTEFANIA report prior to prescribing Schedule II, III, and IV medications that require review by law. [email or web address] Not available 10/23/2023 11:43:51 03/30/2024 03/30/2024 Ms. Forte was referred by Dr. Kern for management of chronic migraine headache. The patient has been diagnosed with Baldev's disease. The patient receives Botox injections for migraine headache every 3 months. The patient has taken Sumatriptan, Topiramate, Propranolol, Gabapentin, and Qulipta with minimal benefit. The patient denies DM, anti-coagulant use, and history of MRSA. [email or web address] Not available 03/31/2024 08:53:33 Plan of Treatment Reminders Order Date Submit Date Provider Last Modified By Organization Details Last Modified Time Details Appointments None recorded. Lab None recorded. Referral otolaryngol ogist referral - Refer to sub-special ty ENT at for a second opinion regarding right ear pain 2023 024 [email or web address] , [address], [place], [address], 13:23:24 physical therapist referral - Refer to PT at [facility] for TMJ dysfunction . 1-2x weekly for 4-6 weeks. 2023 024 [facility], [address], [place], [address], 4 15:07:47 Procedures None recorded. Surgeries None recorded. Imaging None recorded. Medication Orders None recorded. Patient TargetsNo targets recorded. Patient Instructions Encounter Date Encounter Id Patient Instructions Last Modified By Organization Details Last Modified Time 03/30/2024 [id number] I have discussed in great detail our potential treatment options which would include a rehabilitative approach to care. This program would include medication management, Physical Therapy, consideration for interventional procedures as appropriate, and lifestyle modification (diet, weight loss, exercise, smoking/tobacco cessation, holistic approach including meditation and yoga). The patient understands and agrees prior to proceeding with this plan. _ __ __ __ __ __ __ __ __ __ __ __ __ __ __ __ __ __ __ __ __ __ __ __ __ __ __ __ _ RECORDS REVIEW: As per clinic policy, we will have the patient sign a release to obtain previous imaging and clinical notes. - PROCEDURE: I counseled the patient extensively and informed of the risks of the procedure, including the risk of paralysis, nerve damage, respiratory arrest, arrhythmias, stroke, weakness, and infection, which although very low, could result in or disability. The patient acknowledged to me that they understand and accept these risks. RN EDUCATION Extensive coordination of care provided by RN to educate patient on upcoming procedure and to coordinate obtaining extensive incoming medical records. _ __ __ __ __ __ __ __ __ __ __ __ __ __ __ __ __ __ __ __ __ __ __ __ __ __ __ __ _ PSYCH: Pain affecting Neuro-psych behavior was discussed. Discussed about pain psychological counseling as a part of the multimodal approach to pain treatment. _ __ __ __ __ __ __ __ __ __ __ __ __ __ __ __ __ __ __ __ __ __ __ __ __ __ __ __ _ REHABILITATION: Discussed with the patient the importance of diet, daily physical activity and PT. Discussed with the patient the need to be scheduled for physical therapy since physical therapy will prolong the benefits of the procedure and interventions. _ __ __ __ __ __ __ __ __ __ __ __ __ __ __ __ __ __ __ __ __ __ __ __ __ __ __ __ _ ESTEFANIA: [id number] I have reviewed patient's ESTEFANIA report prior to prescribing Schedule II, III, and IV medications that require review by law. [email or web address] Not available 03/31/2024 08:53:17 Reason for Referral Risk Management Specialist Referral fo r Pain of ear Refer to sub-specialty ENT at for a second opinion regarding right ear pain Referring Physician: Sergio Gunter, Pain Management, Encounter Date: 10/22/2023 Physical Therapist Referral for Temporomandibular joint disorder Refer to PT at [facility] for TMJ dysfunction. 1-2x weekly for 4-6 weeks. Referring Physician: Sergio Gunter Pain Management, Encounter Date: 10/22/2023 Results Created Date Observation Date Name Description Value Unit Range Abnormal Flag Note LastModifiedBy Organization Detail LastModifiedTime 10/16/19 24 10/16/2023 US, neck, soft tissu e [facility] [address] [place] [address] Phone: Fax: Name: LOPEZ FORTE Exam Date: 10/16/19 24 : [birth year] Age 43 years Gender : F Access ion: [id number] Physic bernie: CYNTHIA DOLAN ty: [facility] Fac[facility] ty HSV: Outpat ient Exam: US NECK SOFT TISSUE PROCED URE: US HEAD NECK SOFT TISSUE . HISTOR Y: Matthew sena is a 43 year old female with pain and swelli ng right neck, ear/ja w region . Dental implan ts. COMPAR JARRED: None availa ble. TECHNI QUE: Two-di mensio nal graysc louis ultras ound imagin g of the right neck was perfor med. Color flow imagin g was also perfor med. FINDIN GS: There are two benign -appea ring lymph nodes identi fied within the area of matthew sena's pain and swelli ng in the right neck. No discre te mass lesion s or focal fluid collec tions are identi fied. IMPRES ALIYAH: Two benign -appea ring lymph nodes identi fied within the area of matthew sena's pain and swelli ng in the right neck. Thank you for allowi ng us to assist in the care of this matthew sena. Electr onical ly signed by: Mendez Alvarado MD 2023 11:36 PM EDT RP Workst ation: SEALWR [id number] Dictat ed By: Mendez Alvarado Transc ribed By: Transc ribed On: 10/16/19 3:34 PM Electr onical ly signed by: Mendez Alvarado 10/16/19 Thank you for referr LOPEZ Abbasi to [facility]. Legall y authen ticate d by ISABEL SHETTY MD 2023-0 10-15 15:34: 20 CC'ed Logic: Orderi ng Provid er: JOVITA AVALOS CC Provid er: KATHY Morrissey Attend ing Provid er: JOVITA AVALOS Referr ing Provid er: JOVITA AVALOS Admitt ing Provid er: JOVITA AVALOS [facility] (Radiology) [address], [place], [address], 10/22/2023 08:54:59 Result Notes None recorded. Problems Name Problem SNOMED Code Status Onset Date Resolution Date Notes Provider Name and Address Organization Details Recorded Time Pain of ear 639380508 Active 2024 Shazia patino, [facility] - [place] & [place] 5 08:52:35 Migraine 50992725 Active 2022 Pauline Lowell null, [place] - [facility] - [place] & [place] 3 15:36:24 Chronic intractabl e migraine without aura 6501220028478 05 Active 2022 Mildred Kern, DO [address], [place], [address] , [place] - [facility] - [place] & [place] 3 16:01:09 MRI of head abnormal 4575571847638 07 Active 2022 Mildred Kern, DO [address] [facility], [place], [address] , [place] - [facility] - [place] & [place] 3 16:06:30 Abnormal auditory perception 74448852 Active 2023 JOSE BABCOCK, AUD [address] [facility], [place], [address] , [place] - [facility] - [place] & [place] 4 15:55:20 Radicular pain 23599036 Active 2023 Shazia Tokins null, [place] - [facility] - [place] & [place] 4 08:06:05 Cervico-oc cipital neuralgia 23499801 Active 2023 Shazia Gambino null, [place] - [facility] & [place] 4 08:06:20 Temporoman dibular joint disorder 92850569 Active 2023 Shazia Gambino null, [place] - [facility] [place] & [place] 4 08:06:26 Problem Notes None recorded. Procedures Surgical History Date Name Laterality Status Provider Name and Address Organization Details Recorded Time 06/20/19 25 Botox Migraine completed DORENE PEPPER PA-C [address] [facility], [place], [address], [place] - [facility] [place] & [place] 06/22/2024 07:24:42 03/20/19 25 Botox Migraine completed Shazia Gambino [place] - [facility] - [place] & [place] 03/20/2024 12:12:11 12/12/19 24 Botox Migraine completed Shazia NEVAREZ - [facility] - [place] & [place] 12/12/2023 10:41:52 06/10/19 24 Most Recent Bone Density completed Luba NEVAREZ - [facility] - [place] & [place] 03/30/2024 11:45:38 05/07/19 24 Cerumen removal with microscope completed Rohan NEVAREZ - [facility] - [place] & [place] 05/07/2023 16:03:35 06/10/19 23 completed Luba NEVAREZ - [facility] - [place] & [place] 03/30/2024 11:45:38 06/10/19 22 Date of Last Pap Smear completed Luba Andrew NEVAREZ - [facility] & [place] 03/30/2024 11:45:38 implantation of dental zygomatic implant into zygomatic bone completed Pauline Monaconichelle GERI - [facility] & [place] 12/26/2022 15:38:07 insertion of iliac artery stent completed Pauline Monaconichelle GERI - [facility] & [place] 12/26/2022 15:38:22 insertion of bilateral breast prostheses completed Pauline Monaconichelle GERI - [facility] & [place] 12/26/2022 15:38:37 tympanotomy completed Pauline Monaconichelle GERI - LP [facility] - [place] & [place] 12/26/2022 15:38:57 Imaging Results Imaging Date Name Status LastModified by Organiz ation Details LastModified Time 10/16/2023 US, neck, soft tissue completed [facility] (Radiology) [address] , [place], [address], 10/22/2023 08:54:59 Procedure Notes None recorded. Medical Equipment None Reported. Allergies Allergen ID Allergen Name Allergen Category Reaction Reaction Severity Criticality Documentation Date Start Date Code Code System Note Provider Name and Address Organization Details Recorded Time 97340 Cymbalta medicatio n Not available Not available Not available 12/26/2022 73458 4 RxNorm Pauline Jacindanichelle patino [place] - [facility] & [place] 15:34:48 65891 Product containin g penicilli n (product) medicatio n Not available Not available Not available 12/26/2022 01467 8001 SNOMED Pauline Jacindaa null, [place] - [facility] - [place] & [place] 15:34:54 55442 Bactrim medicatio n Not available Not available Not available 12/26/2022 97218 9 RxNorm Pauline Dalla null, [place] - [facility] - [place] & [place] 15:35:03 22110 doxycycli ne Not available Not available Not available Not available 12/26/2022 3640 RxNorm Pauline Dalla null, [place] [facility] [place] & [place] 15:35:12 93965 Concerta medicatio n Not available Not available Not available 12/26/2022 34719 4 RxNorm Pauline Dalla null, [place] [facility] [place] & [place] 15:35:24 23410 Strattera medicatio n Not available Not available Not available 12/26/2022 06134 0 RxNorm Pauline Dalla null, [place] [facility] [place] & [place] 15:35:32 77283 Dimetapp (bromphen iramine-P PA) medicatio n Not available Not available Not available 12/26/2022 13782 UNK Pauline Jacindaa null, [place] [facility] [place] & [place] 15:35:43 08513 hydroxyzi ne Not available Not available Not available Not available 12/26/2022 5553 RxNorm Pauline Dalla null, [place] [facility] [place] & [place] 15:35:51 48876 trazodone medicatio n Not available Not available Not available 12/26/2022 65604 RxNorm Pauline Dalla null, [place] [facility] [place] & [place] 15:36:01 79207 Seroquel medicatio n Not available Not available Not available 12/26/2022 76257 RxNorm Pauline Dalla null, [place] [facility] [place] & [place] 15:36:09 Medications Name Sig Start Date Stop Date Status Note LastModified by Organization Details LastModified Time naltrexone rr 4.5 mg capsule # Take 1.5 capsule (4.5mg) BY MOUTH EVERY DAY active Not Available Not Available No t Available naltrexone rr 4 mg capsule # TAKE 1 CAPSULE BY MOUTH AT BEDTIME 03/30 completed Not Available Not Available Not Available cyclobenzap rine 10 mg tablet TAKE ONE TABLET BY MOUTH TWICE DAILY MAY CAUSE DROWSINES S active Not Available Not Available No t Available clindamycin HCl 300 mg capsule TAKE ONE CAPSULE BY MOUTH EVERY 8 HOURS FOR 10 DAYS -- FINISH ALL MEDICINE -- 09/05 completed Not Available Not Available Not Available tizanidine 4 mg tablet TAKE ONE TABLET BY MOUTH THREE TIMES DAILY NEEDED FOR MUSCLE SPASMS MAY CAUSE DROWSINES S active Not Available Not Available No t Available fluconazole 150 mg tablet TAKE ONE TABLET BY MOUTH EVERY OTHER DAY 09/05 completed Not Available Not Available Not Available fluorouraci l 5 % topical cream APPLY TOPICALLY TO THE AFFECTED AREA(S) TWICE DAILY FOR FOURTEEN DAYS active Not Available Not Available No t Available triamcinolo ne acetonide 0.5 % topical ointment APPLY TOPICALLY TO THE AFFECTED AREA(S) (RASH) THREE TIMES DAILY DIRECTED -- FOR EXTERNAL USE ONLY-- 12/26 completed Not Available Not Available Not Available clopidogrel 75 mg tablet TAKE ONE TABLET BY MOUTH EVERY DAY 09/05 completed Not Available Not Available Not Available valacyclovi r 500 mg tablet TAKE 1 TABLET BY MOUTH TWICE DAILY FOR 7 DAYS 12/26 completed Not Available Not Available Not Available ciprofloxac in 500 mg tablet TAKE ONE TABLET BY MOUTH TWICE DAILY FOR 5 DAYS -- FINISH ALL MEDICINE -- 12/26 completed Not Available Not Available Not Available dextroamphe tamine-amph etamine 30 mg tablet TAKE ONE TABLET BY MOUTH TWICE DAILY AT least 4-6 hours APART active Not Available Not Available No t Available clindamycin 1 % topical gel APPLY TOPICALLY TO THE AFFECTED AREA(S) EVERY DAY 12/26 completed Not Available Not Available Not Available triamcinolo ne acetonide 0.1 % dental paste apply TO dental area(s) FOUR TIMES DAILY NEEDED FOR MOUTH irritatio n; mix with orabase FOR blisters ON TONGUE active Not Available Not Available No t Available meclizine 25 mg tablet Take 1 tablet 3 times a day by oral route as needed. active Not Available Not Available No t Available indomethaci n 50 mg capsule TAKE ONE CAPSULE BY MOUTH EVERY DAY AT BEDTIME --TAKE WITH FOOD-- active Not Available Not Available No t Available montelukast 10 mg tablet TAKE ONE TABLET BY MOUTH EVERY DAY 03/19 completed Not Available Not Available Not Available ibuprofen 600 mg tablet TAKE 1 TABLET BY MOUTH EVERY 6 HOURS FOR 7 DAYS 12/26 completed Not Available Not Available Not Available cefdinir 300 mg capsule TAKE ONE CAPSULE BY MOUTH EVERY TWELVE HOURS FOR 10 DAYS -- FINISH ALL MEDICINE -- 12/26 completed Not Available Not Available Not Available medroxyprog esterone 150 mg/mL intramuscul ar suspension INJECT 1ML INTRAMUSC ULARLY ONCE EVERY 3 MONTHS DIRECTED active Not Available Not Available No t Available clindamycin phosphate 1 % topical solution APPLY TOPICALLY TO THE AFFECTED AREA(S) EVERY DAY active Not Available Not Available No t Available oxycodone 5 mg tablet TAKE 1 TABLET BY MOUTH EVERY 6 HOURS NEEDED FOR PAIN 12/26 completed Not Available Not Available Not Available pregabalin 75 mg capsule TAKE ONE CAPSULE BY MOUTH TWICE DAILY MAY CAUSE DROWSINES S 05/30 completed Not Available Not Available Not Available pregabalin 100 mg capsule TAKE ONE CAPSULE BY MOUTH TWICE DAILY active Not Available Not Available No t Available levocetiriz ine 5 mg tablet TAKE ONE TABLET BY MOUTH EVERY DAY active Not Available Not Available No t Available omeprazole 20 mg tablet,veronica yed release Take 1 tablet every day by oral route as needed. active Not Available Not Available No t Available Botox 200 unit injection Take 200 units every 3 months by injection route for 90 days. 2023 active Not Available Not Available Not Avai lable Eliquis 5 mg tablet TAKE TWO TABLETS BY MOUTH TWICE DAILY 12/26 completed Not Available Not Available Not Available Ubrelvy 100 mg tablet TAKE ONE TABLET BY MOUTH ONCE DIRECTED active Not Available Not Available No t Available Nurtec ODT 75 mg disintegrat ing tablet DISSOLVE ONE TABLET in MOUTH EVERY OTHER DAY 09/05 completed Not Available Not Available Not Available Qulipta 60 mg tablet TAKE ONE TABLET BY MOUTH EVERY DAY active Not Available Not Available No t Available Qulipta 30 mg tablet TAKE ONE TABLET BY MOUTH EVERY DAY 12/26 completed Not Available Not Available Not Available naltrexone 4.5 mg capsule Take 1 capsule every day by oral route. 09/05 completed Not Available Not Available Not Available Vitals Date Recorded Body height Body mass index (BMI) Body weight Body temperature Oxygen saturation Oxygen saturation in Arterial blood by Pulse oximetry Heart rate Systolic blood pressure Diastolic blood pressure Provider Name and Address Organization Details Last Updated DateTime 4 163.83 cm 20.9 kg/m2 17131.0 2 g 97.1 [degF] 99 % 99 % 123 /min 120 mm[Hg] 80 mm[Hg] [facility] & [place] 4 09:33:59 Date Recorded Body height Body temperature Oxygen saturation Oxygen saturation in Arterial blood by Pulse oximetry Heart rate Systolic blood pressure Diastolic blood pressure Provider Name and Address Organization Details Last Updated DateTime 4 163.83 cm 98.6 [degF] 95 % 95 % 98 /min 138 mm[Hg] 75 mm[Hg] Adore Mercado [facility] & [place] 4 10:22:01 Date Recorded Body height Body temperature Oxygen saturation Oxygen saturation in Arterial blood by Pulse oximetry Heart rate Systolic blood pressure Diastolic blood pressure Provider Name and Address Organization Details Last Updated DateTime 5 163.83 cm 98.1 [degF] 100 % 100 % 127 /min 130 mm[Hg] 82 mm[Hg] Jody Saini [facility] & [place] 5 11:10:51 Date Recorded Body height Body mass index (BMI) Body weight Body temperature Oxygen saturation Oxygen saturation in Arterial blood by Pulse oximetry Heart rate Systolic blood pressure Diastolic blood pressure Provider Name and Address Organization Details Last Updated DateTime 5 163.83 cm 21.7 kg/m2 03517.2 6 g 97.9 [degF] 98 % 98 % 61 /min 106 mm[Hg] 71 mm[Hg] [facility] & [place] 5 11:45:13 Date Recorded Body height Body temperature Oxygen saturation Oxygen saturation in Arterial blood by Pulse oximetry Heart rate Systolic blood pressure Diastolic blood pressure Provider Name and Address Organization Details Last Updated DateTime 5 163.83 cm 97.5 [degF] 99 % 99 % 86 /min 120 mm[Hg] 75 mm[Hg] [facility] [place] 13:08:22 Social History Question Answer Notes LastModified by Organizat ion Details LastModified Time Tobacco Smoking Status Former Smoker Pauline patino, [facility] & [place] 12/26/2022 15:42:31 Do You Have An Advance Directive? No Information not available 03/30/2024 What Is Your Level Of Alcohol Consumption? None Information not available 12/26/2022 Are You Blind Or Do You Have Difficulty Seeing? No Information not available 03/30/2024 What Is Your Level Of Caffeine Consumption? Moderate Information not available 12/26/2022 Are You Currently Employed? No Disabled Information not available 12/26/2022 When Did You Quit Smoking? 1-5yearssince lastcigarette Information not available 12/26/2022 What Was The Date Of Your Most Recent Tobacco Screening? 03/19/2024 Information not available 03/30/2024 Do You Have Any Pets? Yes Information not available 12/26/2022 What Is Your Relationship Status? Domestic Partner Information not available 12/26/2022 Are You Passively Exposed To Smoke? No Information not available 03/30/2024 Do You Or Have You Ever Used Smokeless Tobacco? Never Used Smokeless Tobacco Information not available 03/30/2024 How Much Tobacco Do You Smoke? No Information not available 03/30/2024 Do You Feel Stressed (tense, Restless, Nervous, Or Anxious, Or Unable To Sleep At Night)? [id number] Information not available 03/30/2024 Do You Use Any Illicit Or Recreational Drugs? No Information not available 12/26/2022 How Many Years Have You Smoked Tobacco? 16 Information not available 03/30/2024 Are You Currently In School? No Some College Information not available 12/26/2022 Sex: Unknown Functional Status Question Answer Note LastModified by Organizat ion Details LastModified Time What is your exercise level? Occasional Information not available 03/30/2024 Mental Status None recorded. Family History Relationship Description Onset Age of this Age Resolved Age Notes LastModified by Organization Details LastModified Time Father Heart disease ldalla Not available 2022 15:36:53 Father Migraine Not available 03/30/2024 11:38:32 Mother Migraine Not available 03/30/2024 11:38:32 Medical History Condition Response Heart Problems Y Thyroid Problems Y ADD/ADHD Y Osteoporosis/Osteopenia Y Anemia Y Arthritis Y Asthma Y Rheumatoid Arthritis Y Fibromyalgia Y Headaches Y Gynecological History Statement/Question Response Abnormal Pap Y 06/09/2022 Date of LMP 10/09/1998 Most Recent Bone Density 06/10/2023 Sexually Active? Y Menses Monthly N Date of Last Pap Smear 06/09/2021 Current Control Method Depo-Lead Bi Developer a Age at Menarche 17 Obstetrics History GPAL:G 0 P 0 0 0 0 Past Encounters Encounter ID Performer Location Encounter Start Date Encounter Closed Date Diagnosis/Indication Diagnosis SNOMED-CT Code Diagnosis ICD10 Code Diagnosis Note [id number] Mildred DO IMTIAZ [facility] [address] [facility],[address] [place] [address] 12/26/2022 15:12:02 12/27/2022 15:38:36 Chronic intractable migraine without aura [id number] 41076 G43.711 Chronic refractory migraines that are not controlled with qulipta. She previously has failed topiramate , propranolo l and gabapentin . She also has failed sumatripta n and ubrelvy.Mariel mauriico has 16 headache days per month on average and each headache lasts 1-2 days.Will pursue BOTOX approval as treatment for her migraines. MRI of head abnormal [id number] 69655 R93.0 She reports having prior abnormal MRI's brain that raised concern for MS. I do not have any of those records. She does not recall the neurologis t name but will get that informatio n for me so that I may request the MRI's and neurologis t records to review. [id number] Mildred DO IMT[facility] [address] [place] [address] 02/22/2023 11:03:17 02/22/2023 11:26:54 Chronic intractable migraine without aura [id number] 76957 G43.711 [id number] Cynthia Dolan MD [facility] [address], [address] [place] [address] 8 04/17/2023 13:32:42 04/17/2023 14:06:43 Retained foreign body of right middle ear [id number] 407355 Z18.9 [id number] Cynthia Dolan MD [facility] [address], [address] [place] [address] 8 05/07/2023 15:16:50 05/07/2023 16:02:24 Ventilation tube finding 259389089 Z96.22 Went over the imaging results with patient myself in the office today. Explained no tympanosto my tube was seen, which is good news. Audiogram and tympanogra m was normal in office today. At this time I would not recommend surgery. Will see her back as needed. Impacted c erumen in right ear [id number] 600977 H61.21 Was able to remove cerumen and debris from right EAC today in office. Patient tolerated well. Incompeten ce of nasal valve 309381576 J34.89 Explained to the patient she would most likely be a candidate for Latera. Encouraged her to do read about this to see if this is something she would be interested in. She will call the office at her convenienc e. [id number] RICARDO YOUSIF [facility] [address], [address] [place] [address] 8 05/07/2023 15:17:10 05/07/2023 15:29:20 Abnormal auditory perception 20618904 H93.299 [id number] DO IMTIAZ [facility] [address] [place] [address] 05/31/2023 10:58:04 05/31/2023 11:18:45 Chronic intractable migraine without aura [id number] 64812 G43.032 [id number] DO IMTIAZ [facility] [address] [place] [address] 09/06/2023 11:05:05 09/06/2023 11:25:32 Chronic intractable migraine without aura [id number] 43881 G43.576 [id number] SERGIO GUNTER PA-C [facility] [address] [place] [address] 09/23/2023 14:23:05 09/23/2023 15:14:09 Chronic intractable migraine without aura [id number] 64871 G43.711 Radicular pain 53994667 M54.10 Cervico-oc cipital neuralgia 89834271 M54.81 Temporoman dibular joint disorder 54518527 M26.620 [id number] Cynthia Dolan MD [facility] [address] [facility] [address] [place] [address] 10/09/2023 10:16:26 10/09/2023 10:56:17 Aphthous ulcer of mouth 722866890 K12.0 Would like for her to discontinu e all commercial oral care. She can make her own toothpaste by mixing with baking soda and peroxide. She can use saltwater for mouth wash. Continue using the triamcinol one paste given by her PCP to be applied to the ulcers. Mass of neck 449672465 R 22.1 I suspect her pain is related to TMJ arthralgia . She is scheduled for botox injections in the near future and I encouraged her to keep that appointmen t. Would like for her to have an ultrasound of her neck for completene ss. Will get this ordered at [facility]. She does have notable tension and tenderness near the scalene muscle. Will be in touch with those results when received. Can see her back sooner if needed. Muscle tension 779463736 R29.898 Otalgia of left ear 1010 479189 H92.02 [id number] SERGIO GUNTER PA-C [facility] [address] [facility] [address] [place] [address] 10/22/2023 09:14:54 10/22/2023 10:13:40 Chronic intractable migraine without aura [id number] 90744 G43.711 Cervico-oc cipital neuralgia 00018348 M54.81 Temporoman dibular joint disorder 76869060 M26.609 Radicular pain 31638455 M54.10 Pain of ear 799032176 H9 2.09 [id number] Chris Summers MD [facility] [address] [address] 12/12/2023 09:40:56 12/12/2023 10:33:55 Chronic intractable migraine without aura [id number] 40460 G43.073 [id number] Chris Summers MD [facility] [address] [address] 03/20/2024 09:27:05 03/20/2024 10:27:47 Chronic intractable migraine without aura 1675107661 72298 G43.710 [id number] Chris Summers MD [facility] [address] [address] 03/30/2024 11:32:16 03/30/2024 12:06:05 Chronic intractable migraine without aura 2988759555 47667 G43.711 - The patient has recently been approved for a medical marijuana card and her PCP is no longer willing to prescribe Pregabalin 100mg Q12. She mentions that she has yet to use her medical marijuana card and is unsure if she will, she just wanted to keep her options open.- I advised the patient that with THC use, I will not be able to prescribe medication s. I advised her that she will have to choose between the two.- I advised her that if she wants to, she can try medical marijuana as she still have Pregabalin remaining. If she decides not to utilize medical marijuana card, I will be more than willing to take over medication pending a negative UDS. She verbalized understand ing.- I will follow up for Botox injections . Cervico-oc cipital neuralgia 85138870 M54.81 Temporoman dibular joint disorder 76875487 M26.609 Radicular pain 32437126 M54.10 [id number] Chris Summers MD [facility] [address] [place] [address] [facility] [address] 06/19/2024 11:14:28 06/19/2024 12:36:48 Migraine without aura, not refractory 890118684 G43.709 Health Concerns Section Related Observation LastModified by Organization Detai ls LastModified Time None Recorded Concern Status LastModified by Organization Details LastModified Time None Recorded Advance Directives Directive N: Payers Encounter Date Sequence Insurance Name Policy Number Policy Salgado Covered Member ID Salgado Member ID Guarantor Name 10/22/2023 1 [place] Marcelina Cokera [id number] Marcelina Sobeida 10/22/2023 2 [place]TRADITI [place] Marcelina Forte [id number] Marcelina Cokera 12/12/2023 1 [place]ina Cokera [id number] Marcelina Sobeida 12/12/2023 2 MEDICAID-[facility] HEALTH CHOICES - FFS/TRADITI ONAL Marcelina Forte [id number] Marcelina Sobeida 03/20/2024 1 [place] Marcelina Kingston Sobeida [id number] Marcelina Sobeida 03/20/2024 2 MEDICAID-[facility] HEALTH CHOICES - FFS/TRADITI ONAL Marceilna Forte [id number] Marcelina Sobeida 03/30/2024 1 [place] Marcelina Kingston Sobeida [id number] Marcelina Sobeida 03/30/2024 2 [place]/TRADITI [place] Marcelina Cokera [id number] Marcelina Sobeida 06/19/2024 1 [place] Marcelina Kingston Sobeida [id number] Marcelina Sobeida 06/19/2024 2 [place]FS/TRADITI [facility] Marcelina Forte [id number] Marcelina Forte Notes Date Note Type Note Provider Name and Address Organization Details Recorded Time 4 text/html Ms. Forte was referred by Dr. Kern for management of chronic migraine headache. The patient has been diagnosed with Baldev's disease. The patient receives Botox injections for migraine headache every 3 months. The patient has taken Sumatriptan, Topiramate, Propranolol, Gabapentin, and Qulipta with minimal benefit. The patient denies DM, anti-coagulant use, and history of MRSA. The patient presents to the clinic today to follow up on pain. The patient complains of right ear pain located at the mastoid with onset following removal of an ear tube. The patient states that she has underwent numerous ear tube placements since childhood. The patient states that she recently followed up with ENT, whom is suspicious of TMJ dysfunction (the patient was previously diagnosed with TMJ dysfunction). The patient states that she also has a history of dental implantation, noting that she recently completed Clindamycin. The patient states that there was suspicion of mastoiditis. The patient states that she has completed imaging (CT and US) of the region. Today the pain level is a 4/10. Initial complaint: chronic migrainesOnset: 5+ yearsContext: worsening over timeCharacter: sharp, aching, throbbing, radiatingLocation: headDuration: constant with fluctuationsInitial Intensity: 4/10Worse: N/ABetter: N/AAssociated symptoms: Denies saddle anaesthesia, denies acute bowel/bladder changes, denies acute power loss.ADLs: The patient's pain interferes with daily chores, exercise, sleep, relationships, and walking.Current Pain Medications: UbrelvyPrior Pain Medications: Sumatriptan, Topiramate, Propranolol, Gabapentin, QuliptaNSAIDS/OTC: mildly helpfulNon-interventiona l Tx: nonePhysical Therapy: noneInterventional Tx: Botox injections every 3 months, last being 09/06/23 - Dr. KernSurgery: noneImaging/Studies: no recent imaging SERGIO GUNTER PA-C [address] [facility], [place], [address], [facility] & [place] 10/23/2023 11:44:10 5 text/html Ms. Forte was referred by Dr. Kern for management of chronic migraine headache. The patient has been diagnosed with Baldev's disease. The patient receives Botox injections for migraine headache every 3 months. The patient has taken Sumatriptan, Topiramate, Propranolol, Gabapentin, and Qulipta with minimal benefit. The patient denies DM, anti-coagulant use, and history of MRSA. The patient presents to the clinic today to discuss medication. The patient states that she has recently applied for a medical marijuana card and was approved. She mentions that she notified her PCP of the medical marijuana card and now they are no longer willing to prescribe her medication (Pregabalin 100mg Q12). She takes the medication for neuropathic pain and RLS. The patient has yet to utilize her medical marijuana card and is wanting to keep her options open regarding her medication so she came in for discussion today. She voices concern with being labeled if she decides to utilize THC for pain management. The patient mentions that Botox has been helpful thus far (performed on 03/20/24). Pain today is a 4/10. Initial complaint: chronic migrainesOnset: 5+ yearsContext: worsening over timeCharacter: sharp, aching, throbbing, radiatingLocation: headDuration: constant with fluctuationsInitial Intensity: 4/10Worse: N/ABetter: N/AAssociated symptoms: Denies saddle anaesthesia, denies acute bowel/bladder changes, denies acute power loss.ADLs: The patient's pain interferes with daily chores, exercise, sleep, relationships, and walking.Current Pain Medications: UbrelvyPrior Pain Medications: Sumatriptan, Topiramate, Propranolol, Gabapentin, QuliptaNSAIDS/OTC: mildly helpfulNon-interventiona l Tx: nonePhysical Therapy: noneInterventional Tx: Botox injections every 3 months, last being 09/06/23 - Dr. KernSurgery: noneImaging/Studies: no recent imaging Chris Summers MD [facility] [facility], [place], [address], [facility] & [place] 03/31/2024 11:02:33 OBGyn Episode No OBEpisode recorded.
--- OUTSIDE RECORDS SUMMARY | 2024-06-30 12:43 | XMS_ITS ---
Care Plan - [facility], [facility] Created on: June 30, 2024 Sobeida Marcelina Louise : 1980 Sex: Female Author Organization [facility] , [facility] Address [address] [place] [address] Phone Care Team Providers Care Ergonomics Engineer Name Role Phone Eliana Acosta Unavailable [phone] Casey RODRIGEZ, Ghanshyam Edmond Unavailable [phone]
--- OUTSIDE RECORDS SUMMARY | 2024-06-30 12:43 | XMS_ITS ---
Author Organization [facility] , [facility] Address [address] [place] [address] Phone Care Team Providers Care Foiling Machine Adjuster Name Role Phone Eliana Acosta Unavailable [phone] Casey RODRIGEZ, Ghanshyam Edmond Unavailable [phone] Problems Includes: Active, inactive, and resolved Problems All Visits Onset Date Resolved Date Provider Condition S tatus Lower Back Pain 12/13/2022 Ghanshyam Peña MD Act mariely Last Documented On 3 12:05PM ; [facility] Plan of Treatment Pending Tests Order Diagnosis Results Due Ordering P rovider Procedure/Tests BGO EMG 12/27/22 Ghanshyam Peña MD Last Documented On 3 12:49PM ; [facility] Assessments Includes: Assessments for all patient encounters No Assessments Recorded Medical Equipment - Implanted Devices Includes: Current and historical Devices No Medical Equipment Recorded Medications Includes: Current and historical Medications Current Medications (continue as prescribed) Depo-Provera 150 MG/ML Intramuscular Suspension 2022 Provider: Diagnosis: Last Documented On 3 1:43PM By Lillian MEJIAS [facility], [facility] Indomethacin 50 MG Oral Capsule 12/13/2022 Provider: Diagnosis: Last Documented On 3 1:41PM By Lillian MEJIAS [facility], [facility] Clindamycin Phosphate 1% External Solution 11/29/2022 Provider: Diagnosis: Last Documented On 3 12:17PM By [facility] Montelukast Sodium 10 MG Oral Tablet 10/27/2022 Prov ider: Diagnosis: Last Documented On 3 12:17PM By Lillian Kwong ; [facility], [facility] Pregabalin 75 MG Oral Capsule 10/27/2022 Provider: Sergio Salcedo APRN Diagnosis: Last Documented On 3 12:17PM By Lillian Kwong ; [facility], [facility] Qulipta 60 MG Oral Tablet 10/27/2022 Provider: Diagnosis: Last Documented On 3 12:17PM By Lillian Kwong ; [facility] Levocetirizine Dihydrochloride 5 MG Oral Tablet 2022 Provider: Diagnosis: Last Documented On 3 12:17PM By Lillian Kwong ; [facility], [facility] Amphetamine-Dextroamphetamin e 30 MG Oral Tablet 10/27/2022 Provider: Chavo Shaver MD Diagnosis: Last Documented On 3 12:17PM By Lillian Kwong ; [facility] Triamcinolone Acetonide 0.5% External Ointment 023 Provider: Diagnosis: Last Documented On 3 12:17PM By Lillian Kwong ; [facility] medroxyPROGESTERone Acetate 150 MG/ML Intramuscular Suspension 10/11/2022 Provider: Sergio MERCADO Diagnosis: Last Documented On 3 12:17PM By Lillian Kwong ; [facility] tiZANidine HCl 4 MG Oral Tablet 09/27/2022 Provider: Diagnosis: Last Documented On 3 12:17PM By Lillian Kwong ; [facility] Clopidogrel Bisulfate 75 MG Oral Tablet 09/24/2022 Casandra mcfarland: Bayron Barnes MD Diagnosis: Last Documented On 3 12:17PM By Lillian addis ; [facility], [facility] Past Medications on file Clindamycin Phosphate 1% External Solution 09/27/2022 - 12/13/2022 Provider: Diagnosis: Last Documented On 3 1:41PM By Lillian Kwong ; [facility] Medications Administered Includes: Administered Medications in patient's chart No Administered Medications Recorded Results Includes: Results from 07/01/2023 through 06/30/2024 No Results Recorded For Specified Dates History of Present Illness History of Present Illness not supported for this document type No History of Present Illness Recorded Social History No Social History Recorded - Smoking Status Unknown Medical History Includes: Medical History in patient's chart No Medical History Recorded Family History Includes: Family History in patient's chart No Family History Recorded Review of Systems Review of Systems not supported for this document type No Review of Systems Recorded Mental Status Description No anxiety Functional Status No Functional Status Recorded Physical Exam Physical Exam not supported for this document type No Physical Exam Recorded Allergies Includes: Active, inactive, and resolved Allergies Substance Type Reaction Onset Date Resolved Date Statu s Latex Allergy 12/13/2022 Active Last Documented On 3 1:42PM ; [facility], [facility] Insurance Includes: Active Insurance Policies Plan Name Member ID Group # Subscriber Relationship Effect mariely Dates 1 - Medicare Part B [facility] [id number] Marcelina Zepeda 03/11/2022 - Unknown 2 - [employer] [facility] [id number] Marcelina Zepeda 03/11/2022 - Unknown Clinical Notes Includes: Signed Clinical Notes starting from 02/22/2022 No Clinical Notes Recorded
[2024-07-01 12:32] LABS: FSH 9.5 mIU/mL (.)
== END 2024-06-29 23:59 | disposition home or self-care (01) ==
LOC: LAB.DROPOF 06-30 12:40
PROVIDERS: PCP Family Medicine; Visit Provider Family Medicine
DX: E53.8 Deficiency of other specified B group vitamins (principal); N95.1 Menopausal and female climacteric states; E55.9 Vitamin D deficiency, unspecified
CPT/HCPCS: 82306; 82607; 83001

== ENCOUNTER 2024-11-04 14:43 | Outpatient (CLI) | payer MEDICARE, MEDICAID, SELFPAY ==
--- OUTSIDE RECORDS SUMMARY | 2024-09-23 13:45 | XMS_ITS | Encounter Summary ---
[facility] Address [address] [place] [address] Care Team Providers Care Assembler Metal Building Name Role Phone Anthony Cui MD Primary Care Provider [phone] Reason for Visit * Reason Comments Sinus tachycardia Encounter Details Date Type Department Care Team (Late st Contact Info) Description 09/23/2024 1:45 PM EDT Office Visit [facility] [address] [facility] [address] [place] [address] Debbi Holloway MD [address] [facility] [address] [place] [address] Sinus tachycardia (Primary Dx); PVC's (premature ventricular contractions) Social History Tobacco Use Types Packs/Day Years Used Date Smoking Tobacco: Former Cigarettes 1.5 15 0 12/05/2000 - 12/05/2018 Passive Smoke Exposure: Past Smokeless Tobacco: Never Alcohol Use Standard Drinks/Week Comments No 0 (1 standard drink = 0.6 oz pur e alcohol) Comments No Sex and Gender Information Value Date Recorded Sex Assigned at Not on file Legal Sex Female 1:20 PM EDT Gender Identity Not on file Sexual Orientation Not on file documented as of this encounter Last Filed Vital Signs Vital Sign Reading Time Taken Comments Blood Pressure 108/68 09/23/2024 1:54 PM EDT Pulse 80 09/23/2024 1:54 PM EDT Temperature - - Respiratory Rate - - Oxygen Saturation 96% 09/23/2024 1:54 PM EDT Inhaled Oxygen Concentration - - Weight 55.8 kg (123 lb) 09/23/2024 1:54 PM EDT Height 162.6 cm (5' 4 ) 09/23/2024 1:54 PM EDT Body Mass Index 21.11 09/23/2024 1:54 PM EDT documented in this encounter Progress Notes * Debbi Holloway MD - 09/23/2024 1:45 PM EDT [facility] Cardiology Patient ID: Marcelina Vidales is a 44 y.o. female. : 1980 Contact: Encounter date: 09/23/2024 PCP: Anthony Cui MD Chief complaint: Chief Complaint Patient presents with Sinus tachycardia Problem List: Premature ventricular contractions Premature atrial contractions Echocardiogram, 07/01/2017: EF 65%. 03/02/19 Monitor: Baseline NSR, min 51, max 171, avg 99. 15.8% PVC, few runs of NSVT, 25% PACs. Monitor 03/2020: 12.7% PVC burden. Echo 04/15/20: EF 60%, trace MR, trace TR. Stress echo 04/15/20: Did not achieve expected exercise time, rapid achievement of THR c/w deconditioning. No ischemia noted by echo, EKG. Appropriate suppression of PVCs with exercise. Tilt table test, 02/14/2024; Following 15 minutes of supine position the patient's baseline blood pressure was 126/94 mmHg with a heart rate of 111 bpm. Following upright positioning to 80 degrees the patient's blood pressure was 122/92 with a heart rate of 136. No syncope or presyncope occurred. Negative tilt table test for inducible neurocardiogenic or vasodepressor syncope. 7 day Holter, 04/08/2024; The baseline rhythm is sinus tachycardia. Sinus rhythm also noted. The average heart rate is 107 bpm. No PACs noted. Frequent PVCs noted. 3.3% of all beats. 2 morphologies. Couplets and triplets were rare. Diary events submitted correlate with sinus tachycardia at approximately 120 bpm. No atrial fibrillation. No pauses. Sinus tachycardia EKG 02/08/11: Sinus tach with incomplete right bundle branch block with a rate of 101 Echocardiogram, 03/06/11: EF 55-60%, trace MR and TR Intolerant to beta blockers due to significant hypotension Holter monitor, 02/04/17: Sinus rhythm with bradycardia and tachycardic episodes. Average heart rate 97 bpm. Rare PACs and occasional PVCs. No pauses Echocardiogram, 07/01/2017: EF 65%. 03/02/19 Monitor: Baseline NSR, min 51, max 171, avg 99. ~43k PVCs, few runs of NSVT, 25% PACs. 7 day Holter, 04/08/2024; The baseline rhythm is sinus tachycardia. Sinus rhythm also noted. The average heart rate is 107 bpm. No PACs noted. Frequent PVCs noted. 3.3% of all beats. 2 morphologies. Couplets and triplets were rare. Diary events submitted correlate with sinus tachycardia at approximately 120 bpm. No atrial fibrillation. No pauses. Thyroid disorder: Baldev's. Former tobacco abuse Quit 11/2018 ADHD Rheumatoid arthritis Lupus vs. 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 Bayron Barnes 09/24/2022 Surgeries Breast augmentation Tube in right ear, January 2020. Allergies Allergen Reactions Metoprolol Other (See Comments) hypotension Prednisone Swelling Propranolol Other (See Comments) hypotension Penicillins Rash Sulfa Antibiotics Arrhythmia Contrast Dye (Echo Or Unknown Ct/Mr) Other (See Comments) Tachycardia Doxycycline GI Intolerance Duloxetine Other (See Comments) Atomoxetine Other (See Comments) Brompheniramine Other (See Comments) Hydroxyzine Other (See Comments) Latex Other (See Comments) blisters Meclizine Other (See Comments) Melatonin Other (See Comments) Methylphenidate Other (See Comments) Mirtazapine Other (See Comments) Other Other (See Comments) Quetiapine Other (See Comments) Sudafed [Pseudoephedrine Hcl] Irritability tachycardia Trazodone Other (See Comments) Trimethoprim Other (See Comments) Zolpidem Other (See Comments) Current Medications: Current Outpatient Medications: Amphetamine-Dextroamphetamine (ADDERALL PO), Take 30 mg by mouth As Needed., Disp: , Rfl: benzocaine (ORABASE-B) 20 % paste, Apply to the mouth or throat 2 (Two) Times a Day As Needed., Disp: , Rfl: cholecalciferol (VITAMIN D3) 1000 units tablet, Daily., Disp: , Rfl: clindamycin (CLEOCIN T) 1 % external solution, Apply topically to the appropriate area as directed 2 (Two) Times a Day., Disp: , Rfl: fluorouracil (EFUDEX) 5 % cream, 1 Application., Disp: , Rfl: hydrocortisone 2.5 % cream, Apply topically 2 (Two) Times a Day. (Patient taking differently: Applytopically to the appropriate area as directed 2 (Two) Times a Day As Needed.), Disp: 22 g, Rfl: 0 ibuprofen (ADVIL,MOTRIN) 200 MG tablet, Take 1 tablet by mouth Every 6 (Six) Hours As Needed for Mild Pain., Disp: , Rfl: Indomethacin (INDOCIN PO), Take by mouth As Needed. (Patient taking differently: Take 50 mg by mouth As Needed.), Disp: , Rfl: levocetirizine (XYZAL) 5 MG tablet, Take 1 tablet by mouth Every Evening., Disp: , Rfl: meclizine (ANTIVERT) 25 MG tablet, As Needed., Disp: , Rfl: medroxyPROGESTERone (DEPO-PROVERA) 150 MG/ML injection, Inject 1 mL into the appropriate muscle as directed by prescriber Every 3 (Three) Months., Disp: , Rfl: naltrexone (DEPADE) 50 MG tablet, Take 4 mg by mouth Daily. [facility] (Patienttaking differently: Take 4.5 mg by mouth Daily. [facility] 4.5 mg tab), Disp: ,Rfl: OnabotulinumtoxinA (Botox) 200 units reconstituted solution, Every 3 (Three) Months., Disp: , Rfl: pregabalin (LYRICA) 75 MG capsule, 2 (Two) Times a Day. (Patient taking differently: 100 mg As Needed.), Disp: , Rfl: propranolol (INDERAL) 80 MG tablet, Take 1 tablet by mouth 2 (Two) Times a Day., Disp: , Rfl: Qulipta 30 MG tablet, Take 1 tablet by mouth Daily., Disp: , Rfl: tiZANidine (ZANAFLEX) 4 MG tablet, Take 1 tablet by mouth At Night As Needed for Muscle Spasms., Disp: , Rfl: triamcinolone (KENALOG) 0.1 % paste, Apply to teeth 2 (Two) Times a Day., Disp: , Rfl: triamcinolone (KENALOG) 0.5 % ointment, Apply 1 Application topically to the appropriate area as directed 2 (Two) Times a Day., Disp: , Rfl: ubrogepant 100 MG tablet, As Needed., Disp: , Rfl: VENTOLIN HFA 108 (90 Base) MCG/ACT inhaler, As Needed., Disp: , Rfl: vitamin D (ERGOCALCIFEROL) 1.25 MG (98459 UT) capsule capsule, Take 1 capsule by mouth 1 (One) TimePer Week., Disp: , Rfl: HPI Marcelina Vidales is a 44 y.o. female who presents today for a [address] up of ST and cardiac risk factors. Since last visit, the patient has been doing well overall from a cardiovascular standpoint. She has started taking propranolol due to migraines. She states since initiating all her heart rate will decrease occasionally. She notes her blood pressure has not changed. Patient maintains a stable activity level. She did see a vein specialist due to her May Thurner syndrome and notes that she was told she may have nerve issues due to the May Thurner syndrome. Patient denies chest pain,shortness of breath, orthopnea, palpitations, edema, dizziness, and syncope. The following portions of the patient's history were reviewed and updated as appropriate: allergies, current medications and problem list. Pertinent positives as listed in the HPI. All other systems reviewed are negative. Vitals: 09/23/24 1354 BP: 108/68 BP Location: Right arm Patient Position: Sitting Pulse: 80 SpO2: 96% Weight: 55.8 kg (123 lb) Height: 162.6 cm (64 ) Physical Exam: General: Alert and oriented. Neck: Jugular venous pressure is within normal limits. Carotids have normal upstrokes without bruits. Cardiovascular: Heart has a nondisplaced focal PMI. Regular rate and rhythm. No murmur, gallop or rub. Lungs: Clear, no rales or wheezes. Equal expansion is noted. Extremities: Show no edema. Skin: Warm and dry. Neurologic: Nonfocal. Diagnostic Data (reviewed with patient): No recent laboratory studies available for review today. Procedures Assessment: ICD-10-CM ICD-9-CM 1. Sinus tachycardia R00.0 427.89 2. PVC's (premature ventricular contractions) I49.3 427.69 Plan: Continue routine aerobic exercise for at least 30 minutes at least daily. Encouraged patient to do interval training during exercise. Continue all other current medications. F/up in 12 months, sooner if needed. Scribed for Debbi Holloway MD by Padma Tidwell. 09/23/2024 14:06 EDT I Debbi Holloway MD personally performed the services described in this documentation as scribed by the above individual in my presence, and it is both accurate and complete. Debbi Holloway MD, [facility] documented in this encounter Plan of Treatment Upcoming Encounters Date Type Department Care Team (Late st Contact Info) Description 09/29/2025 3:00 PM EDT Office Visit [facility] [address] [facility] [address] [place] [id number] Debbi Holloway MD [address] [facility] [address] [address] [place] [id number] documented as of this encounter Visit Diagnoses Diagnosis Sinus tachycardia- Primary Other specified cardiac dysrhythmias PVC's (premature ventricular contractions) Other premature beats documented in this encounter Care Teams Assembler Metal Building Relationship Specialty Start Date End Date Anthony Cui MD [address] [place] [address] PCP - General Family Medicine 01/23/24 documented as of this encounter
--- NOTE | 2024-11-04 14:46 | XR_ITS ---
FINAL REPORT CLINICAL HISTORY: Neck pain COMPARISON: None FINDINGS: AP, lateral and odontoid views of the cervical spine were obtained. There is no prior exam for comparison. There is no acute fracture or malalignment. Vertebral body height is preserved. Mild degenerative disc disease is present with small anterior osteophytes. The precervical soft tissues are normal. IMPRESSION: Mild degenerative disc disease, with no acute osseous abnormality of the cervical spine. Reviewed, Interpreted and Dictated by Brittany Crawley MD Transcribed by Chaya Contreras Authenticated and . [facility]
--- OUTSIDE RECORDS SUMMARY | 2024-11-04 14:48 | XMS_ITS | Encounter Summary ---
Author Organization Healthcare Address [address] [place] [address] Care Team Providers Care Chart Reader Name Role Phone Eliana Rodarte Primary Care Provider [phone] Encounter Details Date Type Department Care Team (Late st Contact Info) Description 10/16/2023 Orders Only External Location [address] [place] [address] Provider, External Social History Tobacco Use Types Packs/Day Years Used Date Smoking Tobacco: Every Day Alcohol Use Standard Drinks/Week Comments No 0 (1 standard drink = 0.6 oz pur e alcohol) Comments Unknown Sex and Gender Information Value Date Recorded Sex Assigned at Not on file Legal Sex Female 8:26 PM EDT Gender Identity Not on file Sexual Orientation Not on file documented as of this encounter Plan of Treatment Not on file documented as of this encounter Procedures Procedure Name Priority Date/Time Associated Diagnosis Comments US OUTSIDE IMAGES 10/16/2023 3:20 PM EDT documented in this encounter Results * US OUTSIDE IMAGES (10/16/2023 3:20 PM EDT) Anatomical Region Laterality Modality Ultrasound 10/16/2023 3:20 PM EDT us External Provider IMG US PROCEDURES Final Result documented in this encounter Visit Diagnoses Not on filedocumented in this encounter Care Teams Chart Reader Relationship Specialty Start Date End Date Eliana Rodarte PA [address] [place] [address] PCP - General 07/22/20 documented as of this encounter
--- OUTSIDE RECORDS SUMMARY | 2024-11-04 14:48 | XMS_ITS | Encounter Summary ---
Author Organization Healthcare Address [address] [place] [address] Care Team Providers Care Sailboat Captain Name Role Phone Eliana Rodarte Primary Care Provider [phone] Encounter Details Date Type Department Care Team (Late st Contact Info) Description 04/26/2023 Orders Only External Location [address] [place] [address] Provider, External Social History Tobacco Use Types [...] Procedure Name Priority Date/Time Associated Diagnosis Comments CT OUTSIDE IMAGES 04/26/2023 9:35 AM EST documented in this encounter Results * CT OUTSIDE IMAGES (04/26/2023 9:35 AM EST) Anatomical Region Laterality Modality Computed Tomogra phy 04/26/2023 9:35 AM EST us External Provider IMG CT PROCEDURES Final Result documented in this encounter Visit Diagnoses Not on filedocumented in this encounter Care Teams Sailboat Captain Relationship Specialty Start Date End Date Eliana Rodarte PA [address] [place] [address] PCP - General 07/22/20 documented as of this encounter
--- OUTSIDE RECORDS SUMMARY | 2024-11-04 14:48 | XMS_ITS | Clinical Summary ---
Author Organization [facility] Address [address] [place] [address] Care Team Providers Care Resume Writer Name Role Phone Anthony Cui MD Primary Care Provider [phone] Allergies Active Allergy Reactions Criticality Noted Date Comments Atomoxetine Other (See Comments) Low 10/17/2022 Brompheniramine Other (See Comments) Low 10/17/2022 Contrast Dye (Echo Or Unknown Ct/Mr) Other (See Comments) 03/29/2020 Tachycardia Doxycycline GI Intolerance 05/07/2018 Duloxetine Other (See Comments) 10/17/2022 Hydroxyzine Other (See Comments) Low 10/17/2022 Latex Other (See Comments) Low 05/16/2017 blisters Meclizine Other (See Comments) Low 10/17/2022 Melatonin Other (See Comments) Low 10/17/2022 Methylphenidate Other (See Comments) Low 10/17/2022 Metoprolol Other (See Comments) High 07/02/2017 hypotension Mirtazapine Other (See Comments) Low 10/17/2022 Other Other (See Comments) Low 10/17/2022 Penicillins Rash Medium 01/17/2016 Prednisone Swelling High 01/17/2016 Propranolol Other (See Comments) High 07/02/2017 hypotension Quetiapine Other (See Comments) Low 10/17/2022 Pseudoephedrine Hcl Irritability Low 01/17/2016 tachycardia Sulfa Antibiotics Arrhythmia Medium 01/17/2016 Trazodone Other (See Comments) Low 10/17/2022 Trimethoprim Other (See Comments) Low 10/17/2022 Zolpidem Other (See Comments) Low 10/17/2022 Medications Indomethacin (INDOCIN PO) Take by mouth As Needed. Active Amphetamine-Dextr oamphetamine (ADDERALL PO) Take 30 mg by mouth As Needed. Active tiZANidine (ZANAFLEX) 4 MG tablet Take 1 tablet by mouth At Night As Needed for Muscle Spasms. Active medroxyPROGESTERo ne (DEPO-PROVERA) 150 MG/ML injection Inject 1 mL into the appropriate muscle as directed by prescriber Every 3 (Three) Months. Active VENTOLIN HFA 108 (90 Base) MCG/ACT inhaler As Needed. 8 Active cholecalciferol (VITAMIN D3) 1000 units tablet Daily. 8 Active hydrocortisone 2.5 % creamIndications: Rash Apply topically 2 (Two) Times a Day. 22 g 8 Active Additional Information Patient taking differently:Topical2 Times Daily PRN, Reported on 09/23/2024 ibuprofen (ADVIL,MOTRIN) 200 MG tablet Take 1 tablet by mouth Every 6 (Six) Hours As Needed for Mild Pain. Active levocetirizine (XYZAL) 5 MG tablet Take 1 tablet by mouth Every Evening. Active pregabalin (LYRICA) 75 MG capsule 2 (Two) Times a Day. 2 Active Qulipta 30 MG tablet Take 1 tablet by mouth Daily. 2 Active ubrogepant 100 MG tablet As Needed. 2 Active triamcinolone (KENALOG) 0.5 % ointment Apply 1 Application topically to the appropriate area as directed 2 (Two) Times a Day. 3 Active clindamycin (CLEOCIN T) 1 % external solution Apply topically to the appropriate area as directed 2 (Two) Times a Day. 3 Active triamcinolone (KENALOG) 0.1 % paste Apply to teeth 2 (Two) Times a Day. 3 Active benzocaine (ORABASE-B) 20 % paste Apply to the mouth or throat 2 (Two) Times a Day As Needed. 3 Active naltrexone (DEPADE) 50 MG tablet Take 4 mg by mouth Daily. [facility] Active Onabotulinumtoxin A (Botox) 200 units reconstituted solution Every 3 (Three) Months. 4 Active fluorouracil (EFUDEX) 5 % cream 1 Application. 4 Active meclizine (ANTIVERT) 25 MG tablet As Needed. Active vitamin D (ERGOCALCIFEROL) 1.25 MG (89265 UT) capsule capsule Take 1 capsule by mouth 1 (One) Time Per Week. 5 Active propranolol (INDERAL) 80 MG tablet Take 1 tablet by mouth 2 (Two) Times a Day. Active Active Problems Problem Noted Date Diagnosed Date PVC's (premature ventricular contractions) 03/23 Multiple sclerosis 07/24/2017 Sinus tachycardia 05/23/2017 Resolved Problems Problem Noted Date Diagnosed Date Resolved Date Tobacco abuse 05/23/2017 03/23/2020 Encounters Date Type Department Care Team Description 09/23/2024 1:45 PM EDT Office Visit [facility] CARDIOLOGY [address] [place] [address] [address] [place] [address] Debbi Holloway MD Sinus tachycardia (Primary Dx); PVC's (premature ventricular contractions) 09/23/2024 Travel from Last 3 Months Family History Medical History Relation Name Comments Heart attack Father Mikel Hopkins Heart disease Father Mikel Hopkins Hyperlipidemia Father Mikel Hopkins No Known Problems Sister Relation Name Status Comments Brother Alive Addiction probl ems Father Mikel Hopkins Alive Mother Alive Addiction probl ems Sister Alive Social History Tobacco Use Types Packs/Day Years [...] on file Sexual Orientation Not on file Last Filed Vital Signs Vital Sign Reading Time Taken Comments Blood Pressure 108/68 09/23/2024 1:54 PM EDT Pulse 80 09/23/2024 1:54 PM EDT Temperature 36 C (96.8 F) 04/19/2020 3:14 PM EST Respiratory Rate 18 05/07/2018 5:33 PM EST Oxygen Saturation 96% 09/23/2024 1:54 PM EDT Inhaled Oxygen Concentration - - Weight 55.8 kg (123 lb) 09/23/2024 1:54 PM EDT Height 162.6 cm (5' 4 ) 09/23/2024 1:54 PM EDT Body Mass Index 21.11 09/23/2024 1:54 PM EDT Plan of Treatment Upcoming Encounters Date Type Department Care Team (Late st Contact Info) Description 09/29/2025 3:00 PM EDT Office Visit [facility] [address] [facility] [address] [place] [address] Debbi Holloway MD [address] [facility] [address] [place] [address] Health Maintenance Due Date Last Done Comments Annual Gynecologic Pelvic an d Breast Exam 1980 PAP SMEAR 06/14/2003 ANNUAL WELLNESS VISIT 08/15/2016 HEPATITIS C SCREENING 08/15/2016 MAMMOGRAM 2022 COVID-19 Vaccine (2023-2 5 season) 2023 INFLUENZA VACCINE 12/09/2024 TDAP/TD VACCINES (3 - Td or Tdap) 02/25/2033 02/25/2023, 07/02/1997 Pneumococcal Vaccine 0-49 Aged Out No longer eligible based on patient's age to complete this topic Insurance MEDICAID [place] MED[place]ARE A [place] B Care Teams Resume Writer Relationship Specialty Start Date End Date Anthony Cui MD [address] [place] [address] PCP - General Family Medicine 01/23/24
--- OUTSIDE RECORDS SUMMARY | 2024-11-04 14:48 | XMS_ITS | Encounter Summary ---
Author Organization [facility] Address [address] [place] [address] Care Team Providers Care Lodging Facilities Attendant Name Role Phone Anthony Cui MD Primary Care Provider [phone] Encounter Details Date Type Department Care Team (Latest Contact Info) Description 09/23/2024 Travel Social History Tobacco Use Types Packs/Day Years [...] as of this encounter Plan of Treatment Upcoming Encounters Date Type Department Care Team (Late st Contact Info) Description 09/29/2025 3:00 PM EDT Office Visit [facility] [address] [facility] [address] [place] [address] Debbi Holloway MD [address] [facility] [address] [place] [address] documented as of this encounter Visit Diagnoses Not on filedocumented in this encounter Care Teams Lodging Facilities Attendant Relationship Specialty Start Date End Date Anthony Cui MD [address] [place] [address] PCP - General Family Medicine 01/23/24 documented as of this encounter
--- OUTSIDE RECORDS SUMMARY | 2024-11-04 14:48 | XMS_ITS | Encounter Summary ---
Author Organization Healthcare Address [address] [place] [address] Care Team Providers Care Director Television News Name Role Phone Eliana Rodarte Primary Care Provider [phone] Encounter Details Date Type Department Care Team (Late st Contact Info) Description 06/06/2021 Community [facility] [address] [place] [address] Eliana Rodarte PA [address] [place] [address] Numbness (Primary Dx); Tingling sensation Social History Tobacco Use Types Packs/Day Years [...] on file documented as of this encounter Visit Diagnoses Diagnosis Numbness- Primary Disturbance of skin sensation Tingling sensation Disturbance of skin sensation documented in this encounter Care Teams Director Television News Relationship Specialty Start Date End Date Eliana Rodarte PA [address] [place] [address] PCP - General 07/22/20 documented as of this encounter
--- OUTSIDE RECORDS SUMMARY | 2024-11-04 14:48 | XMS_ITS | Clinical Summary ---
Author Organization [facility] Address [address] [place] [address] Care Team Providers Care Farmworker Fruit Name Role Phone Eliana Rodarte Primary Care Provider [phone] Allergies Active Allergy Reactions Criticality Noted Date Comments Atomoxetine Other - please document in the comment field Low 10/17/2022 Brompheniramine Other - please document in the comment field,Unknown - Patient states they do not know rxn details Low 10/17/2022 Doxycycline Unknown - Patient states they do not know rxn details Low 04/29/2018 Duloxetine Unknown - Patient states they do not know rxn details Low 01/28/2018 Hydroxyzine Unknown - Patient states they do not know rxn details Low 10/17/2022 Latex Unknown - Patient states they do not know rxn details Low 05/16/2017 blisters Meclizine Unknown - Patient states they do not know rxn details Low 10/17/2022 Melatonin Unknown - Patient states they do not know rxn details Low 10/17/2022 Methylphenidate Unknown - Patient states they do not know rxn details,Other - please document in the comment field Low 10/17/2022 Metoprolol Unknown - Patient states they do not know rxn details High 07/02/2017 hypotension Mirtazapine Unknown - Patient states they do not know rxn details Low 10/17/2022 Penicillins Other - please document in the comment field,Rash,Unknown - Patient states they do not know rxn details High 01/17/2016 Phenylpropanolamine Other - please document in the comment field Low 08/12/2023 Prednisone Swelling High 01/17/2016 Propranolol Unknown - Patient states they do not know rxn details High 07/02/2017 hypotension Quetiapine Other - please document in the comment field Low 10/17/2022 Sulfa Drugs Other - please document in the comment field Medium 01/17/2016 Sulfamethoxazole-Trimethoprim Unknown - Patient states they do not know rxn details Low 10/30/2016 Trazodone Unknown - Patient states they do not know rxn details Low 10/17/2022 Trimethoprim Other - please document in the comment field,Unknown - Patient states they do not know rxn details Low 10/17/2022 Zolpidem Unknown - Patient states they do not know rxn details Low 10/17/2022 Medications amphetamine-de xtroamphetamin e (Adderall) 30 MG tablet Take 1 tablet (30 mg) by mouth 2 (two) times a day. Active Qulipta 60 MG tablet Take 60 mg by mouth 1 (one) time each day. 08/14/19 24 Active pregabalin (Lyrica) 100 MG capsule 1 capsule (100 mg). 05/28/19 24 Active tiZANidine (Zanaflex) 4 MG tablet .COMPLEX 04/08/19 18 Active medroxyPROGEST ERone (Depo-Provera) 150 MG/ML injection INJECT 1 ML INTRAMUSCULARLY ONCE every 3 MONTHS DIRECTED Active levocetirizine (Xyzal) 5 MG tablet Take 1 tablet (5 mg) by mouth 1 (one) time each day. Active amphetamine-de xtroamphetamin e XR (Adderall XR) 30 MG 24 hr capsule Take 1 capsule (30 mg) by mouth 1 (one) time each day in the morning. Do not crush or chew. Active indomethacin (Indocin) 50 MG capsule Indomethacin 50 MG Oral Capsule QTY: 0 capsule Days: 0 Refills: 0 Written: 12/13/22 Patient Instructions: 06/17/19 17 Active norethindrone- ethinyl estradiol (Femhrt Low Dose) 0.5-2.5 MG-MCG tablet Take 1 tablet by mouth 1 (one) time each day. Active Family History Medical History Relation Name Comments Diabetes Father Alcohol abuse Other 1 Conversions - Other Other 2 deafness or hearing loss Hypertension Other 3 Migraines Other 4 Neuropathy Other 5 Rheum arthritis Other 6 Thyroid disease Other 7 Conversions - Other Other 8 FHx: Par kinson's disease Relation Name Status Comments Father Other 1 Other 2 Other 3 Other 4 Other 5 Other 6 Other 7 Other 8 Social History Tobacco Use Types Packs/Day Years [...] Sign Reading Time Taken Comments Blood Pressure 98/62 01/28/2018 10:10 AM EST Pulse 105 01/28/2018 9:22 AM EST Temperature - - Respiratory Rate - - Oxygen Saturation - - Inhaled Oxygen Concentration - - Weight 54 kg (119 lb) 10/28/2023 3:08 PM EDT Height 162.6 cm (5' 4 ) 10/28/2023 3:08 PM EDT Body Mass Index 20.43 10/28/2023 3:08 PM EDT Plan of Treatment Health Maintenance Due Date Last Done Comments [facility]-Depression Screening 1982 [facility]-/Child/Adol SDOH Screenings 1982 [facility]-Varicella Vaccines (1 of 2 - 13+ 2-dose series) 06/14/1995 [facility]- SDOH Screenings 2000 [facility]-Adult SDOH Screenings 2000 [facility]-Hepatitis B Vaccines (1 of 3 - 19+ 3-dose series) 2001 [facility]-Pap Smear 06/14/2003 HPV Vaccines (1 - 3-dose SCDM series) 2009 [facility]-Cervical Cancer Screening 2012 [facility]-HPV/Cotest 2012 ITM-VYIPA-57 Vaccine ( - season) 2023 [facility]-Influenza Vaccine (#1) 2024 [facility]-Zoster Vaccines (1 of 2) 2032 [facility]-DTaP,Tdap,and Td Vaccines (3 - Td or Tdap) 02/25/2033 02/25/2023, 07/02/1997 [facility]-HIB Vaccines Aged Out No longer e ligible based on patient's age to complete this topic [facility]-Hepatitis A Vaccines Aged Out No longer eligible based on patient's age to complete this topic [facility]-IPV Vaccines Aged Out No longer e ligible based on patient's age to complete this topic [facility]-Pneumococcal Vaccine: Pediatrics (0 to 5 Years) and At-Risk Patients (6 to 49 Years) Aged Out No longer eligible b ased on patient's age to complete this topic [facility]-Rotavirus Vaccines Aged Out No lo nger eligible based on patient's age to complete this topic Insurance MEDICARE [place]ICAID-[place] Care Teams Farmworker Fruit Relationship Specialty Start Date End Date Eliana Rodarte PA [address] [place] [address] PCP - General 07/22/20
== END 2024-11-04 23:59 | disposition home or self-care (01) ==
LOC: RAD 14:44
PROVIDERS: PCP Family Medicine; Visit Provider Family Medicine
DX: M50.30 Other cervical disc degeneration, unspecified cervical region (principal); M25.78 Osteophyte, vertebrae
CPT/HCPCS: 72040

== ENCOUNTER 2025-02-24 14:23 | Outpatient (CLI) | payer MEDICARE, MEDICAID, SELFPAY ==
--- OUTSIDE RECORDS SUMMARY | 2025-01-11 06:10 | XMS_ITS | Continuity of Care Document ---
Author Organization [facility] [employer] Phone Care Team Providers Care Grounds Maintenance Manager Name Role Phone ROBERT ALANNA Cameron Primary Care [phone] COUNTS, DORENE Guajardo Unavailable COUNTS, DORENE Guajardo Primary Attending [phone] COUNTS, DORENE Guajardo Admitting ALLERGIES AND ADVERSE REACTIONS ALLERGIES AND ADVERSE REACTIONS Code System Allergy Substance Adverse Reaction Date Reaction (Severity) Comment Status Reported By Updated By LATEX (Free Text Allergy) Adverse reaction to substance unknown active Patient [id number] on January 18, 2020 3:26:21 PM UTC 8611 RXNorm BETADINE Adverse reaction to substance unknown active Patient [id number] on January 18, 2020 3:26:20 PM UTC SILK TAPE (Free Text Allergy) Adverse reaction to substance unknown active Patient [id number] on January 18, 2020 3:26:21 PM UTC PCN (Free Text Allergy) Adverse reaction to substance unknown active Patient [id number] on January 18, 2020 3:26:21 PM UTC [id number] SNOMED CT SULFA ANTIBIOTICS Adverse reaction to substance unknown active Patient [id number] on January 18, 2020 3:26:20 PM UTC 8640 RXNorm PREDNISONE Adverse reaction to substance u active [id number] on January 18, 2020 3:26:20 PM UTC SINUS MEDS (Free Text Allergy) Adverse reaction to substance u active [id number] on January 18, 2020 3:26:22 PM UTC 7984 RXNorm PENICILLIN Adverse reaction to substance u active [id number] on January 18, 2020 3:26:21 PM UTC 3640 RXNorm DOXYCYCLINE Adverse reaction to substance u active [id number] on January 18, 2020 3:26:21 PM UTC [id number] RXNorm CYMBALTA Adverse reaction to substance u active [id number] on January 18, 2020 3:26:21 PM [facility] FAMILY HISTORY RELATION: Father Status: LIVING SNOMED-CT Diagnosis Age At Onset [id number] Heart disease RELATION: Mother Status: LIVING SNOMED-CT Diagnosis Age At Onset Information not available MEDICATIONS HOME MEDICATIONS Status RXNORM NDC Medication Dose Route Frequency Dates Comments Reported By Updated By Drug Treatment Unknown DISCHARGE MEDICATIONS Status RXNORM NDC Medication Dose Route Frequency Dates Dis pense Data Comments Physician Updated By No Discharge Medication Info rmation Available INPATIENT MEDICATIONS Status RXNORM NDC Medication Dose Route Frequency Rat e Quantity Dates Indication Dispense Data Comments Physician Updated By No Inpatient Medication Info rmation Available SOCIAL HISTORY SOCIAL HISTORY - Smoking Status SNOMED-CT Social History Element Description Effective Dates Offered Cessation Comment Updated By [id number] Historical Tobacco smoking status Former Smoker [id number] on September 04, 2021 3:58:06 PM [facility] SOCIAL HISTORY - Gender Sex: Female SOCIAL HISTORY - Status : status i nformation is not available Intention in Next Year: intention information is not available SOCIAL HISTORY - Assessments Code System Description Status Date Value of Assessment Updated By Comment Assessment Information is no t available SOCIAL HISTORY - [place] Affiliation [place] information is not av ailable SOCIAL HISTORY - Legal Sex Legal Sex information is not available SOCIAL HISTORY - Sexual Behavior Sexual Orientation Gender Identity SNOMED-CT Description SNO MED -CT Description Activity Level No of Partners Partner Type UpdatedBy Information is not available SOCIAL HISTORY - Occupation Occupation information is no t available HEALTH CONCERNS Problems Concern Status Health Concern problem infor mation not available. Smoking Status Status Years Used Consumed packs p er day Health Concern smoking histo ry information not available. Family History Concern Status Health Concern family histor y information not available. ENCOUNTERS ENCOUNTER INFORMATION Reason for Visit M79.605 Admission January 08, 2025 6:12:[address] [address] Discharge January 09, 2025 3:59:00 AM [facility] DISCHARGED TO HOME OR SELF CARE ENCOUNTER DIAGNOSES Notes information is not anne marie ilable. Code System Diagnosis Onset Date Diagnosis information is not available. ABSTRACT DIAGNOSES Code System Diagnosis Updated By Abatement Date M79.605 ICD10 PAIN IN LEFT LEG [id number] on January 11, 2025 11:09:43 AM [facility] M79.605 ICD10 PAIN IN LEFT LEG [id number] on January 11, 2025 11:09:46 AM UTC CARE TEAM Care Grounds Maintenance Manager Role ALANNA JONES Primary Care DORENE PEPPER Referring DORENE PEPPER Primary Attending DORENE PEPPER Admitting CARE TEAM CARE byproducts supervisor Role on Team Location Telecom Status Start Date End Navid e Updated By ROBERT Cameron PCP normal January 01, 2025 4:26:41 PM UTC January 09, 2025 3:59:00 AM UTC [id number] on January 01, 2025 4:26:41 PM UTC COUNTS DORENE SCHMITZ Referring normal January 01, 2025 4:26:41 PM UTC January 09, 2025 3:59:00 AM UTC [id number] on January 01, 2025 4:26:41 PM UTC COUNTS DORENE SCHMITZ Attending normal January 01, 2025 4:26:41 PM UTC January 09, 2025 3:59:00 AM UTC [id number] on January 01, 2025 4:26:41 PM UTC COUNTS DORENE SCHMITZ Admitting normal January 01, 2025 4:26:41 PM UTC January 09, 2025 3:59:00 AM UTC [id number] on January 01, 2025 4:26:41 PM UTC
--- OUTSIDE RECORDS SUMMARY | 2025-01-14 11:00 | XMS_ITS | Continuity of Care Document ---
Author Organization [facility] Phone Care Team Providers Care Rock Loader Name Role Phone KENDAL BOYER Primary Attending KENDAL BOYER Unavailable KENDAL BOYER Surgeon KENDAL BOYER Admitting NO, DEFINED P Primary Care Unavailable ALLERGIES AND ADVERSE REACTIONS ALLERGIES AND ADVERSE REACTIONS Code System Allergy Substance Adverse Reaction Date Reaction (Severity) [place] [id number] RXNorm Bactrim Adverse reaction to substance Unknown active [id number] on November 17, 2024 3:55:52 PM UTC 6901 RXNorm Concerta Adverse reaction to substance Unknown active [id number] on November 17, 2024 3:56:02 PM UTC 2703779 RXNorm Cymbalta Adverse reaction to substance Unknown active CHR4412 on November 17, 2024 3:56:16 PM UTC Dimetapp Cold-Allergy (PE) (Free Text Allergy) Adverse reaction to substance Unknown active [id number] on November 17, 2024 3:56:36 PM UTC 3640 RXNorm Doxycycline Adverse reaction to substance Unknown active [id number] on November 17, 2024 3:56:50 PM UTC 5553 RXNorm hydrOXYzine Adverse reaction to substance Unknown active LLB1954 on November 17, 2024 3:57:02 PM UTC [id number] SNOMED CT Penicillins Adverse reaction to substance Unknown active UJQ1902 on November 17, 2024 3:57:13 PM UTC [id number] SNOMED CT Penicillins Adverse reaction to substance Unknown active FSY0225 on November 17, 2024 3:57:13 PM UTC 11316 RXNorm SEROquel Adverse reaction to substance Unknown active [id number] on November 17, 2024 3:57:23 PM UTC Strattera Adverse reaction to substance Unknown active FXY8584 on November 17, 2024 3:57:[place] [address] RXNorm traZODone Adverse reaction to substance Unknown active UAE1382 on November 17, 2024 3:57:44 PM UTC CONTRAST IV DYE (Free Text Allergy) Adverse reaction to substance during mri, tachycardia active [id number] on November 19, 2024 5:16:15 PM UTC MEDICATIONS HOME MEDICATIONS Status RXNORM NDC Medication Dose Route Frequency Dates Comments Reported By Updated By Drug Treatment Unknown DISCHARGE MEDICATIONS Status RXNORM NDC Medication Dose Route Frequency Dates Dis pense Data Comments Physician Updated By No Discharge Medication Info rmation Available INPATIENT MEDICATIONS Status RXNORM NDC Medication Dose Route Frequency Rat e Quantity Dates Indication Dispense Data Comments Physician Updated By Lilly inued [id number] 501 botulinum toxin a (BOTOX) 100 UNIT SOLR 100.0 UNT ONE TIME ONLY (SCHEDULED DOSE) [facility] PM [place] MUNISWAMY KENDAL K INTERFAC ED on January 05, 2025 6:35:00 PM [place] Discont inued [id number] 820 SODIUM CHLORIDE (PF) 0.9 % NARAYAN 20.0 ML INTRAV ENOUS ONE TIME ONLY (SCHEDULED DOSE) 0.833 ML[facility]HR [facility] 7[facility]18[facility]0 0 PM [facility] 6:[facility]0 0 PM UTC MUNISWAMY KENDAL K [id number] on January 05, 2025 7:21:00 PM [place] SOCIAL HISTORY SOCIAL HISTORY - Smoking Status SNOMED-CT Social History Element Description Effective Dates Offered Cessation Comment Updated By [id number] Smoking Status Unknown If Ever Smoked SOCIAL HISTORY - Gender Sex: Female SOCIAL HISTORY - Status : status i nformation is not available Intention in Next Year: intention information is not available SOCIAL HISTORY - Assessments Code System Description Status Date Value of Assessment Updated By Comment Assessment Information is no t available SOCIAL HISTORY - [place] Affiliation [place] information is not av ailable SOCIAL HISTORY [...] available. ENCOUNTERS ENCOUNTER INFORMATION Reason for Visit BOTOX MIGRAINES 200 UNITS Admission January 05, 2025 6:22:[address] [address] Discharge January 05, 2025 6:22:00 PM [facility] DISCHARGED TO HOME OR SELF CARE ENCOUNTER DIAGNOSES Notes information is not anne marie ilable. Code System Diagnosis Onset Date Diagnosis information is not available. ABSTRACT DIAGNOSES Code System Diagnosis Updated By Abatement Date G43.711 ICD10 CHRONIC MIGRAINE WITHOUT AURA, INTRACTABLE, WITH STATUS MIGRAINOSUS [id number] on January 14, 2025 3:59:47 PM [facility] G43.709 ICD10 CHRONIC MIGRAINE WITHOUT AURA, NOT INTRACTABLE, WITHOUT STATUS MIGRAINOSUS [id number] on January 14, 2025 3:59:47 PM [facility] G43.711 ICD10 CHRONIC MIGRAINE WITHOUT AURA, INTRACTABLE, WITH STATUS MIGRAINOSUS [id number] on January 14, 2025 3:59:47 PM [facility] Z87.891 ICD10 PERSONAL HISTORY OF NICOTINE DEPENDENCE [id number] on January 14, 2025 3:59:47 PM [facility] Z88.0 ICD10 ALLERGY STATUS TO PENICILLIN [id number] on January 14, 2025 3:59:47 PM [facility] Z88.1 ICD10 ALLERGY STATUS T O OTHER ANTIBIOTIC AGENTS [id number] on January 14, 2025 3:59:47 PM [facility] Z88.8 ICD10 ALLERGY STATUS T O OTHER DRUGS, MEDICAMENTS AND BIOLOGICAL SUBSTANCES [id number] on January 14, 2025 3:59:47 PM [facility] Z91.040 ICD10 LATEX ALLERGY STATUS [id number] on January 14, 2025 3:59:47 PM [facility] Z91.041 ICD10 RADIOGRAPHIC DYE ALLERGY STATUS [id number] on January 14, 2025 3:59:47 PM [facility] Z91.048 ICD10 OTHER NONMEDICIN AL SUBSTANCE ALLERGY STATUS [id number] on January 14, 2025 3:59:47 PM [facility] CARE TEAM Care Rock Loader Role KENDAL BOYER Primary Attending KENDAL BOYER Referring KENDAL BOEYR Surgeon KENDAL BOYER Admitting DEFINED NO Primary Care CARE TEAM CARE lath hand Role on Team Location Telecom Status Start Date End Navid e Updated By MERLIN MOREIRA Surgeon normal January 05, 2025 6:22:00 PM UTC January 05, 2025 6:22:00 PM UTC [id number] on January 14, 2025 3:59:58 PM UTC NO DEFINED PRIMARY C PCP normal January 04, 2025 3:54:49 PM UTC January 05, 2025 6:22:00 PM UTC [id number] on January 14, 2025 3:59:58 PM UTC MERLIN MOREIRA Referring normal January 04, 2025 3:54:49 PM UTC January 05, 2025 6:22:00 PM UTC [id number] on January 14, 2025 3:59:58 PM UTC MERLIN MOREIRA Attending normal January 04, 2025 3:54:49 PM UTC January 05, 2025 6:22:00 PM UTC [id number] on January 14, 2025 3:59:58 PM UTC MERLIN MOREIRA Admitting normal January 04, 2025 3:54:49 PM UTC January 05, 2025 6:22:00 PM UTC [id number] on January 14, 2025 3:59:58 PM UTC
--- OUTSIDE RECORDS SUMMARY | 2025-02-10 07:57 | XMS_ITS | Continuity of Care Document ---
Author Organization [facility] [employer] Phone Care Team Providers Care Procedures Tech Name Role Phone COUNTS, DORENE Guajardo Primary Attending COUNTS, DORENE Guajardo Admitting ALANNA JONES Primary Care [phone] COUNTS, DORENE Guajardo Unavailable ALLERGIES AND ADVERSE REACTIONS ALLERGIES AND ADVERSE REACTIONS Code System Allergy Substance Adverse Reaction Date Reaction (Severity) Comment Status Reported By Updated By LATEX (Free Text Allergy) Adverse reaction to substance unknown active Patient [id number] on January 18, 2020 3:26:21 PM UTC 8611 RXNorm BETADINE Adverse reaction to substance unknown active Patient [id number] on January 18, 2020 3:26:20 PM UTC SILK TAPE (Free Text Allergy) Adverse reaction to substance unknown active Patient [id number] on January 18, 2020 3:26:21 PM UTC PCN (Free Text Allergy) Adverse reaction to substance unknown active Patient [id number] on January 18, 2020 3:26:21 PM UTC [id number] SNOMED CT SULFA ANTIBIOTICS Adverse reaction to substance unknown active Patient [id number] on January 18, 2020 3:26:20 PM UTC 8640 RXNorm PREDNISONE Adverse reaction to substance u active [id number] on January 18, 2020 3:26:20 PM UTC SINUS MEDS (Free Text Allergy) Adverse reaction to substance u active [id number] on January 18, 2020 3:26:22 PM UTC 7984 RXNorm PENICILLIN Adverse reaction to substance u active [id number] on January 18, 2020 3:26:21 PM UTC 3640 RXNorm DOXYCYCLINE Adverse reaction to substance u active [id number] on January 18, 2020 3:26:21 PM UTC [id number] RXNorm CYMBALTA Adverse reaction to substance u active [id number] on January 18, 2020 3:26:21 PM [facility] FAMILY HISTORY RELATION: Father Status: LIVING SNOMED-CT Diagnosis Age At Onset [id number] Heart disease RELATION: Mother Status: LIVING SNOMED-CT [...] Effective Dates Offered Cessation Comment Updated By [id number] Historical Tobacco smoking status Former Smoker [id number] on September 04, 2021 3:58:06 PM [facility] SOCIAL HISTORY - Gender Sex: Female SOCIAL HISTORY - Status : status i nformation is not available Intention in Next Year: intention information is not available SOCIAL HISTORY - Assessments Code System Description Status Date Value of Assessment Updated By Comment Assessment Information is no t available SOCIAL HISTORY - [place] Affiliation [place] information is not av ailable SOCIAL HISTORY - Legal Sex Legal Sex : Female (finding) SOCIAL HISTORY - Sexual Behavior Sexual Orientation Gender Identity SNOMED-CT Description SNO MED -CT Description Activity Level No of Partners Partner Type UpdatedBy Information is not available SOCIAL HISTORY - Occupation Occupation information is no t available ENCOUNTERS ENCOUNTER INFORMATION Reason for Visit M79.605 Admission January 11, 2025 8:32:[address] [address] Discharge February 08, 2025 4:59:00 AM [facility] DISCHARGED TO HOME OR SELF CARE ENCOUNTER DIAGNOSES Notes information is not anne marie ilable. Code System Diagnosis Onset Date Diagnosis information is not available. ABSTRACT DIAGNOSES Code System Diagnosis Updated By Abatement Date M79.605 ICD10 PAIN IN LEFT LEG [id number] on February 10, 2025 12:57:07 PM [facility] M79.605 ICD10 PAIN IN LEFT LEG [id number] on February 10, 2025 12:57:09 PM [facility] CARE TEAM Care Procedures Tech Role DORENE PEPPER Primary Attending DORENE PEPPER Admitting ALANNA JONES Primary Care DORENE COUNTS Referring CARE TEAM CARE clay miner Role on Team Location Telecom Status Start Date End Navid e Updated By EVGENY SCHMITZ Referring [address], [place], [address] normal January 10, 2025 4:06:18 AM UTC February 08, 2025 4:59:00 AM UTC [email or web address] on January 10, 2025 4:06:18 AM UTC COUNTS DOERNE SCHMITZ Attending [address], [place], [address] normal January 10, 2025 4:06:18 AM UTC February 08, 2025 4:59:00 AM UTC BRBNDAYEND on January 10, 2025 4:06:18 AM UTC COUNTS DORENE SCHMITZ Admitting [address], [place], [address] normal January 10, 2025 4:06:18 AM UTC February 08, 2025 4:59:00 AM UTC BRBNDAYEND on January 10, 2025 4:06:18 AM [place] ROBERT Cameron [facility] [address], [place], [address] normal January 09, 2025 7:32:16 AM UTC February 08, 2025 4:59:00 AM UTC BRBNDAYEND on January 10, 2025 4:06:18 AM [place] INSURANCE PROVIDERS INSURANCE PROVIDER Coverage Status - Effective Date Coverage Type Payor Plan Order Relationship To Subscriber Insurance Plan No Insurance Plan 2024-03-11 M PRIMARY [id number] MEDICARE A B 2024-03-11 W SECONDARY [id number] MEDICAID [id number]
--- OUTSIDE RECORDS SUMMARY | 2025-02-19 13:42 | XMS_ITS | Continuity of Care Document ---
Author Organization [facility] Phone Care Team Providers Care Electrical Maintenance Worker Name Role Phone NO, DEFINED P Primary Care Unavailable KENDAL BOYER Admitting KENDAL BOYER Primary Attending KENDAL BOYER Unavailable ALLERGIES AND ADVERSE REACTIONS ALLERGIES AND ADVERSE REACTIONS Code System Allergy Substance Adverse Reaction Date Reaction (Severity) [place] [address] RXNorm Bactrim Adverse reaction to substance Unknown active [id number] on November 17, 2024 3:55:52 PM [place] 6901 RXNorm Concerta Adverse reaction to substance Unknown active [id number] on November 17, 2024 3:56:02 PM [place] [id number] RXNorm Cymbalta Adverse reaction to substance Unknown active [id number] on November 17, 2024 3:56:16 PM UTC Dimetapp Cold-Allergy (PE) (Free Text Allergy) Adverse reaction to substance Unknown active [id number] on November 17, 2024 3:56:36 PM UTC 3640 RXNorm Doxycycline Adverse reaction to substance Unknown active [id number] on November 17, 2024 3:56:50 [place] 5553 RXNorm hydrOXYzine Adverse reaction to substance Unknown active [id number] on November 17, 2024 3:57:02 PM [place] [id number] SNOMED CT Penicillins Adverse reaction to substance Unknown active [id number] on November 17, 2024 3:57:13 PM UTC [id number] SNOMED CT Penicillins Adverse reaction to substance Unknown active [id number] on November 17, 2024 3:57:[place] [address] RXNorm SEROquel Adverse reaction to substance Unknown active [id number] on November 17, 2024 3:57:23 PM UTC Strattera Adverse reaction to substance Unknown active [id number] on November 17, 2024 3:57:33 PM UTC 90109 RXNorm traZODone Adverse reaction to substance Unknown active [id number] on November 17, 2024 3:57:44 PM [facility] CONTRAST IV DYE (Free Text Allergy) Adverse reaction to substance during mri, tachycardia active [id number] on November 19, 2024 5:16:15 PM [facility] MEDICATIONS HOME MEDICATIONS Status RXNORM NDC Medication [...] Effective Dates Offered Cessation Comment Updated By No Smoking Information Avail able SOCIAL HISTORY - Gender Sex: Female SOCIAL HISTORY - Status : status i nformation is not available Intention in Next Year: intention information is not available SOCIAL HISTORY - Assessments Code System Description Status Date Value of Assessment Updated By Comment Assessment Information is no t available SOCIAL HISTORY - [place] Affiliation [place] information is not av ailable SOCIAL HISTORY - Legal Sex Legal Sex : Female (finding) SOCIAL HISTORY - Sexual Behavior Sexual Orientation Gender Identity SNOMED-CT Description SNO MED -CT Description Activity Level No of Partners Partner Type UpdatedBy Information is not available SOCIAL HISTORY - Occupation Occupation information is no t available ENCOUNTERS ENCOUNTER INFORMATION Reason for Visit OV Admission February 17, 2025 6:15:[address] [address] Discharge February 17, 2025 6:15:00 PM [facility] DISCHARGED TO HOME OR SELF CARE ENCOUNTER DIAGNOSES Notes information is not anne marie ilable. Code System Diagnosis Onset Date Diagnosis information is not available. ABSTRACT DIAGNOSES Code System Diagnosis Updated By Abatement Date M47.812 ICD10 SPONDYLOSIS WITH OUT MYELOPATHY OR RADICULOPATHY, CERVICAL REGION [id number] on February 19, 2025 6:40:15 PM [facility] M47.812 ICD10 SPONDYLOSIS WITH OUT MYELOPATHY OR RADICULOPATHY, CERVICAL REGION [id number] on February 19, 2025 6:40:15 PM [facility] M54.2 ICD10 CERVICALGIA [id number] on Dece mb2024 6:40:15 PM UTC M54.81 ICD10 OCCIPITAL NEURALGIA [id number] on February 19, 2025 6:40:15 PM UTC G43.711 ICD10 CHRONIC MIGRAINE WITHOUT AURA, INTRACTABLE, WITH STATUS MIGRAINOSUS [id number] on February 19, 2025 6:40:15 PM UTC M54.10 ICD10 RADICULOPATHY, S ITE UNSPECIFIED [id number] on February 19, 2025 6:40:15 PM UTC CARE TEAM Care Electrical Maintenance Worker Role DEFINED NO Primary Care KENDLA BOYER Admitting KENDAL BOYER Primary Attending KENDAL BOYER Referring CARE TEAM CARE cad intern Role on Team Location Telecom Status Start Date End Navid e Updated By NO DEFINED PRIMARY C PCP [address], [place], [address] normal February 17, 2025 5:00:00 AM UT February 17, 2025 6:15:00 PM UTC [id number] on February 17, 2025 6:16:46 PM UTC MERLIN RODRIGUEZOD K PHY Referring [address] [place] [address], [id number] normal February 17, 2025 5:00:00 AM UT February 17, 2025 6:15:00 PM UTC [id number] on February 17, 2025 6:16:46 PM [place] MERLIN RODRIGUEZOD K PHY Attending [address] [place] [address], [id number] normal February 17, 2025 5:00:00 AM UTC February 17, 2025 6:15:00 PM UTC [id number] on February 17, 2025 6:16:46 PM [place] MERLIN RODRIGUEZOD K PHY Admitting [address] [place] [address], [id number] normal February 17, 2025 5:00:00 AM UTC February 17, 2025 6:15:00 PM UTC [id number] on February 17, 2025 6:16:46 PM [place] INSURANCE PROVIDERS INSURANCE PROVIDER Coverage Status - Effective Date Coverage Type Payor Plan Order Relationship To Subscriber Insurance Plan No Insurance Plan 2024-03-11 M PRIMARY 18 [id number] MEDICARE 2024-03-11 W SECONDARY [id number] MEDICAID
--- NOTE | 2025-02-24 14:29 | MR_ITS ---
FINAL REPORT TECHNIQUE: Multiplanar and multisequence imaging of the lumbar spine was obtained without contrast. CLINICAL HISTORY: reoccurring low back pain COMPARISON: None FINDINGS: There is normal alignment of the lumbar vertebral bodies in the sagittal plane. Vertebral body height is preserved. The spinal cord ends at the level of L1. There is normal signal intensity within the substance of the distal spinal cord. No acute bone marrow edema or pathologic marrow replacement. No acute paraspinal abnormality is identified. L1-2: No focal disc herniation, central canal stenosis or neuroforaminal narrowing. L2-3: No focal disc herniation, central canal stenosis or neuroforaminal narrowing. L3-4: No focal disc herniation, central canal stenosis or neuroforaminal narrowing. L4-5: No focal disc herniation, central canal stenosis or neuroforaminal narrowing. L5-S1: Broad-based left foraminal protrusion. Mild bilateral facet osteoarthropathy. No central canal stenosis. No right but moderate left neural foraminal narrowing. IMPRESSION: Broad-based left foraminal protrusion at L5-S1 with foraminal stenosis. Reviewed, Interpreted and Dictated by Brittany Crawley MD Transcribed by [place] John Authenticated and [facility]
--- OUTSIDE RECORDS SUMMARY | 2025-02-24 15:39 | XMS_ITS | Encounter Summary ---
Author Organization Healthcare Address [address] [place] [address] Care Team Providers Care Children'S Counselor Name Role Phone Eliana Rodarte Primary Care Provider [phone] Encounter Details Date Type Department Care Team (Late st Contact Info) Description 10/16/2023 Orders Only External Location [address] [place] [address] Provider, External Social History Tobacco Use Types [...] on filedocumented in this encounter Care Teams Children'S Counselor Relationship Specialty Start Date End Date Eliana Rodarte PA [address] [place] [address] PCP - General 07/22/20 documented as of this encounter
--- OUTSIDE RECORDS SUMMARY | 2025-02-24 15:39 | XMS_ITS | Encounter Summary ---
Author Organization Healthcare Address [address] [place] [address] Care Team Providers Care Retail Salesperson Name Role Phone Eliana Rodarte Primary Care Provider [phone] Encounter Details Date Type Department Care Team (Late st Contact Info) Description 04/26/2023 Orders Only External Location [address] [place] [address] Provider, External Social History Tobacco Use Types [...] on filedocumented in this encounter Care Teams Retail Salesperson Relationship Specialty Start Date End Date Eliana Rodarte PA [address] [place] [address] PCP - General 07/22/20 documented as of this encounter
--- OUTSIDE RECORDS SUMMARY | 2025-02-24 15:39 | XMS_ITS | Encounter Summary ---
Author Organization Healthcare Address [address] [place] [address] Care Team Providers Care Leasing Property Manager Name Role Phone Eliana Rodarte Primary Care Provider [phone] Encounter Details Date Type Department Care Team (Late st Contact Info) Description 06/06/2021 Community [facility] Community Practice [address] [place] [address] Eliana Rodarte PA [address] [place] [address] Numbness (Primary Dx); Tingling sensation [...] sensation documented in this encounter Care Teams Leasing Property Manager Relationship Specialty Start Date End Date Eliana Rodarte PA [address] [place] [address] PCP - General 07/22/20 documented as of this encounter
--- OUTSIDE RECORDS SUMMARY | 2025-02-24 15:39 | XMS_ITS | Clinical Summary ---
Author Organization [facility] Address [address] [place] [address] Care Team Providers Care Medical Apparatus Model Maker Name Role Phone Eliana Rodarte Primary Care Provider Allergies Active Allergy Reactions Criticality Noted Date [...] 19+ 3-dose series) 2001 [facility]-Pap Smear 06/14/2003 [facility]-Cervical Cancer Screening 2012 [facility]-HPV/Cotest 2012 [id number]-86 Vaccine ( - 2024- season) 2024 [facility]-Influenza Vaccine (#1) 2024 [facility]-Zoster Vaccines (1 of 2) 2032 [facility]-DTaP,Tdap,and Td Vaccines (3 - Td or Tdap) 02/25/2033 02/25/2023, 07/02/1997 HPV Vaccines (No Doses Required) Completed [facility]-HIB Vaccines Aged Out No longer e [...] this topic Insurance MEDICARE [place] Care Teams Medical Apparatus Model Maker Relationship Specialty Start Date End Date Eliana Rodarte PA [address] [place] [address] PCP - General 07/22/20
--- OUTSIDE RECORDS SUMMARY | 2025-02-24 15:39 | XMS_ITS | Clinical Summary ---
Author Organization [facility] Address [address] [place] [address] Care Team Providers Care Avionics Test Technician Name Role Phone Anthony Cui MD Primary Care Provider [phone] Allergies Active Allergy Reactions Criticality Noted Date [...] tablet Take 4 mg by mouth Daily. [facility] Active Onabotulinumtoxin A (Botox) 200 units reconstituted solution Every 3 (Three) Months. 4 Active fluorouracil (EFUDEX) 5 % cream 1 Application. 4 Active meclizine (ANTIVERT) 25 MG tablet As Needed. Active vitamin D (ERGOCALCIFEROL) 1.25 MG (45663 UT) capsule capsule Take 1 capsule by mouth 1 (One) Time Per Week. 5 Active propranolol (INDERAL) 80 MG tablet Take 1 tablet by mouth 2 (Two) Times a Day. Active Active Problems Problem Noted Date Diagnosed Date PVC's (premature ventricular contractions) 03/23 Multiple sclerosis 07/24/2017 Sinus tachycardia 05/23/2017 Resolved Problems Problem Noted Date Diagnosed Date Resolved Date Tobacco abuse 05/23/2017 03/23/2020 Family History Medical History Relation Name Comments [...] Description 09/29/2025 3:00 PM EDT Office Visit [facility] [address] [place] [id number] Debbi Holloway MD [address] [facility] [address] [place] [address] Health Maintenance Due Date Last Done Comments Annual Gynecologic Pelvic an d Breast Exam 1982 PAP SMEAR 06/14/2003 ANNUAL WELLNESS VISIT 08/15/2016 HEPATITIS C SCREENING 08/15/2016 MAMMOGRAM 2022 INFLUENZA VACCINE 10/09/2024 TDAP/TD VACCINES (3 - Td or Tdap) 02/25/2033 02/25/2023, 07/02/1997 Pneumococcal Vaccine 0-49 Aged Out No longer eligible based on patient's age to complete this topic Insurance MEDICAID [place] MEDICARE A & B Care Teams Avionics Test Technician Relationship Specialty Start Date End Date Anthony Cui MD [address] [place] [address] PCP - General Family Medicine 01/23/24
== END 2025-02-24 23:59 | disposition home or self-care (01) ==
PROVIDERS: PCP Family Medicine; Visit Provider Physician Assistant
DX: M51.17 Intervertebral disc disorders with radiculopathy, lumbosacral region (principal); M99.73 Connective tissue and disc stenosis of intervertebral foramina of lumbar region
CPT/HCPCS: 72148